=== PATIENT | male | born 1940 | race Caucasian/White ===

== ENCOUNTER 2017-01-21 14:54 | Emergency (ER) | payer MEDICARE ==
[~2017-01-21] VITALS: Ht 177.8 cm; Wt 90.7 kg
[~2017-01-21 14:54] MED LIST: ACET325T38 PO; ASP81TEC PO; CARV6.252 PO; CEFU500T PO; CEPH500C PO; CLOP75TA PO; CLOP75TA28 PO; CLPD75T PO; COREG; CRV6.25T PO; DEPAKOTE; DIVA250T12 PO; DIVA500T15 PO; DONE5TAB30 PO; FERR-57 PO; FERROUS SULFATE; FOLI1TAB7 PO; HYDR-3002 PO; HYDR-3583 PO; HYDRALAZINE; LISI5TAB PO; LISINOPRIL; SIMV20TA3 PO; SIMVASTATIN; TRAM-21 PO; TRAM-42 PO; TRAM50TA2 PO; TRAZADONE; TRM50T PO; TRZ50T PO
--- OUTSIDE RECORDS SUMMARY | 2017-01-21 14:59 | XMS REPORT | Continuity of Care Document ---
Author Author [facility] Organization [facility] Address Unknown Phone Unavailable Care Team Providers Care Foreclosure Specialist Name Role Phone ELIZABETH GLEASON MD PCP Insurance Providers Payer Name Policy Number Subscriber Name Relationship Wps [employer] [id number] Alisha East 18 Self / Same As Patient Blue [employer] [facility] Supp [id number] Alisha East Self / Same As Patient Advance Directives Directive Response Recorded Date/Time Advance Directives Yes 10/24/16 6:28am Health Care Power of Pairer Yes 10/24/16 6:28am Organ Donor No 10/24/16 6:28am Resuscitation Status Full Code 10/24/16 6:28am Problems No problem information available. Medications Current Home Medications Medication Dose Units Route Directions Days/Qty Instructions Start Date Ferrous Sulfate 325 Mg 325 Mg Oral Daily 01/06/13 Lisinopril 5 Mg 5 Mg Oral Daily 01/06/13 Simvastatin 20 Mg 20 Mg Oral Bedtime 01/06/13 Trazodone Hcl 50 Mg 50 Mg Oral Bedtime 01/06/13 Carvedilol 6.25 Mg 6.25 Mg Oral Every 12 Hours 12/23/14 Divalproex Sodium (Depakote Er) 250 Mg 500 Mg Oral Daily TAKE 2 (250MG ) TABS 12/23/14 Divalproex Sodium (Depakote Er) 250 Mg 250 Mg Oral Noon, 6PM, Hs Hydralazine Hcl 10 Mg 10 Mg Oral Daily 12/23/14 Clopidogrel Bisulfate 75 Mg 75 Mg Oral Daily 10/19/16 Donepezil Hcl 5 Mg 5 Mg Oral Daily 10/19/16 Tramadol Hcl 50 Mg 50 Mg Oral Every 12 Hours as needed for Pain 20 Past Home Medications Medication Directions Ordered Status [Depakote] , 06/01/11 Discontinued [Coreg] , 06/01/11 Discontinued [Hydralazine] , 06/01/11 Discontinued Clopidogrel Bisulfate 75 Mg Tablet, 75 Mg Oral Daily 06/01/11 Discontinued [Ferrous Sulfate] , 06/01/11 Discontinued [Lisinopril] , 06/01/11 Discontinued [Lisinopril] , 06/01/11 Discontinued [Lisinopril] , 06/01/11 Discontinued Folic Acid/Multivits-Min/Lut 1 Each Tab.chew, 1 Tab Oral Evening 06/01/11 Discontinued [Simvastatin] , 06/01/11 Discontinued [Trazadone] , 06/01/11 Discontinued Aspirin 81 Mg Tabec, 81 Mg Oral Bedtime 06/01/11 Discontinued Cephalexin Monohydrate (Keflex) 500 Mg Capsule, 1 Each Oral Twice A Day 06/05 Discontinued Acetaminophen/Hydrocodone Bitart 1 Tab Tab, 1 - 2 Ea Oral Q4hr Prn 06/05/11 Discontinued Divalproex Sodium (Depakote Er) 500 Mg Tab.sr.24h, 500 Mg Oral Daily Discontinued Hydralazine Hcl 10 Mg Tablet, 10 Mg Oral Daily 01/06/13 Discontinued Divalproex Sodium (Depakote Er) 250 Mg Tab.sr.24h, 250 Mg Oral Take At Noon, 6PM&Hs 01/06/13 Discontinued Carvedilol (Coreg) 6.25 Mg Tablet, 6.25 Mg Oral Twice A Day 01/06/13 Discontinued Tramadol Hcl 50 Mg Tab, 50 Mg Oral Every 12 Hours as needed 07/23/13 Discontinued Clopidogrel Bisulfate 75 Mg Tablet, 75 Mg Oral Daily 12/23/14 Discontinued Tramadol Hcl 50 Mg Tablet, 50 Mg Oral Every 12 Hours 12/23/14 Discontinued Cefuroxime Axetil 500 Mg Tablet, 500 Mg Oral Twice A Day 10/18/15 Discontinued Acetaminophen 325 Mg Tablet, 650 Mg Oral Every 6 Hours as needed for Pain Discontinued Tramadol Hcl 50 Mg Tablet, 50 Mg Oral Every 12 Hours as needed for Pain 01/11 Discontinued Social History Social History Problem Response Recorded Date/Time Alcohol Use Denies Use 01/11/2016 12:07pm Recreational Drug Use No 01/11/2016 12:07pm Recent Foreign Travel No 10/24/2016 6:29am Recent Infectious Disease Exposure No 10/24/2016 6:29am Sexually Transmitted Disease No 10/24/2016 6:28am HIV/AIDS No 10/24/2016 6:28am Smoking Status Never a Smoker 10/24/2016 6:28am Do you dip or chew tobacco? No 01/11/2016 11:54am Recent Hopitalizations No 10/24/2016 6:28am Sexually Transmitted Disease No 10/24/2016 6:28am Hx Sexually Transmitted Disorders No 12/23/2014 10:20am Query Response Start Date Stop Date Smoking Status Never a Smoker 10/18/1993 Hospital Discharge Instructions Patient Instructions Physician Instructions New, Converted or Re-Newed RX: RX on Chart Plan of Care/Instructions/FU: right upper extremity to be elevated as much as possible. Follow-up with my nurse in 2 weeks for suture removal Activity as Tolerated: Yes Discharge Diet: No Restrictions Care Plan Patient Instructions:: right upper extremity to be elevated as much as possible. Follow-up withmy nurse in 2 weeks for suture removal Plan of Care Discharge Date 10/24/16 10:35am Instructions/Education Provided ANESTHESIA INSTRUCTIONS POSTOP Prescriptions See Medication Section Functional Status No functional status results. Allergies, Adverse Reactions, Alerts Allergen Type Severity Reaction Status Last Updated NKANo Known Allergies Allergy Mild Active 01/18/06 Immunizations No immunization records. Vital Signs Acute Vital Signs Vital Response Date/Time Temperature (Fahrenheit) 98.0 degrees F (97.6 - 99.5) 10/24/2016 10:35am Temperature (Calculated Celsius) 36.77910 degrees C (36.4 - 37.5) 10/24/2016 10:25am Temperature Source Temporal 10/24/2016 10:35am Pulse Rate (adult) 58 bpm (60 - 90) 10/24/2016 10:35am Respiratory Rate 16 bpm (12 - 24) 10/24/2016 10:35am O2 Sat by Pulse Oximetry 96 % (88 - 100) 10/24/2016 10:35am Blood Pressure 120/82 mm Hg 10/24/2016 10:35am Blood Pressure Mean 94 mm Hg 10/24/2016 6:33am Pain Numeric Pain Scale 0-No Pain 10/24/2016 10:35am Height (Feet) 5 feet 10/24/2016 6:29am Height (Inches) 10.00 inches 10/24/2016 6:29am Height (Calculated Centimeters) 177.777292 cm 10/24/2016 6:29am Weight (Pounds) 200 pounds 10/24/2016 6:29am Weight (Ounces) 0.0 oz 10/24/2016 6:29am Weight (Calculated Grams) 55158.48 gm 10/24/2016 6:29am Weight (Calculated Kilograms) 90.803759 kilograms 10/24/2016 6:29am Calculated BMI 28.7 10/24/2016 6:29am Results Pending Microbiology Results Procedure Source Collection Date/Time Procedures Procedure Status Date Provider(s) Excision of lesion Completed 10/24/16 ISI MAHMOOD MD Encounters Encounter Location Arrival/Admit Date Discharge/Depart Date Attending Provider Departed [facility] 10/24/16 6:00am 10:35am ISI MAHMOOD MD Departed Clinic [facility] 10/19/16 9:52am 10/19/16 10: 20am ISI MAHMOOD MD
[2017-01-21] MEDS ORDERED: LORazepam INJ 2 MG/ML (ATIVAN) VIAL ONE ×2 (15:08→15:23)
--- NOTE | 2017-01-21 15:11 | Diagnostic Imaging Report ---
PROCEDURE: CT head without contrast. TECHNIQUE: Multiple contiguous axial images were obtained through the brain without the use of intravenous contrast. INDICATION: Syncope and weakness. Comparison made with prior examination 11/17/2008. FINDINGS: There is prominence of ventricles and sulci. There is focal encephalomalacia in the frontal lobes bilaterally, right parietal lobe and left temporal lobe compatible with prior CVAs. There is no intracranial mass, hemorrhage or extra-axial fluid collection. Calvarium intact. Sinuses and mastoid air cells are clear. IMPRESSION: Atrophy as well as several areas of encephalomalacia compatible with prior CVAs. There is, however, no evidence of an acute CVA or hemorrhage. Dictated by: Dictated on workstation # [id number]
[2017-01-21 15:17] LABS: BASOPHILS % (AUTO) 0 % (0-10); EOSINOPHILS # (AUTO) 0.2 10^3/uL (0.0-0.3); EOSINOPHILS % (AUTO) 3 % (0-10); LYMPHOCYTES # (AUTO) 2.2 X 10^3 (1.0-4.0); LYMPHOCYTES % (AUTO) 27 % (12-44); MEAN CORPUSCULAR HEMOGLOBIN 30 PG (25-34); MEAN CORPUSCULAR HGB CONC 35 G/DL (32-36); MEAN CORPUSCULAR VOLUME 85 FL (80-99); MEAN PLATELET VOLUME 10.3 FL (7.4-10.4); MONOCYTES # (AUTO) 0.4 X 10^3 (0.0-1.0); MONOCYTES % (AUTO) 5 % (0-12); NEUTROPHILS # (AUTO) 5.3 X 10^3 (1.8-7.8); NEUTROPHILS % (AUTO) 65 % (42-75); PLATELET COUNT 180 10^3/uL (130-400); RED CELL DISTRIBUTION WIDTH 13.3 % (10.0-14.5); WHITE BLOOD COUNT 8.1 10^3/uL (4.3-11.0)
[2017-01-21 15:28] LABS: INR 1.1 (0.8-1.4); PROTHROMBIN TIME PATIENT 13.5 SEC (12.2-14.7)
[2017-01-21] MEDS ORDERED: ROCURONIUM 50 MG/5 ML (ZEMURON) VIAL IV ONE (15:30)
[2017-01-21] MEDS ORDERED: proPOfol 200 MG/20 ML (DIPRIVAN) VIAL IV ONE (15:34)
[2017-01-21 15:35] LABS: ALANINE AMINOTRANSFERASE 18 U/L (0-55); ALBUMIN 4.1 G/DL (3.2-4.5); ANION GAP 10 MMOL/L (5-14); ASPARTATE AMINO TRANSFERASE 31 U/L (5-34); BILIRUBIN,TOTAL 0.4 MG/DL (0.1-1.0); BLOOD UREA NITROGEN 27 MG/DL (7-18); BUN/CREATININE RATIO 26; CALCIUM 8.7 MG/DL (8.5-10.1); CARBON DIOXIDE 23 MMOL/L (21-32); CHLORIDE 104 MMOL/L (98-107); CREATININE SERUM 1.02 MG/DL (0.60-1.30); GFR ESTIMATED > 60; GLUCOSE 137 MG/DL (70-105); MAGNESIUM 2.4 MG/DL (1.8-2.4); POTASSIUM 5.6 MMOL/L (3.6-5.0); SODIUM 137 MMOL/L (135-145); TOTAL PROTEIN 7.1 G/DL (6.4-8.2)
[2017-01-21 15:41] LABS: MYOGLOBIN SERUM 57.4 NG/ML (10.0-92.0)
--- NOTE | 2017-01-21 16:02 | Diagnostic Imaging Report ---
INDICATION: Respiratory distress. Portable chest at 03:47 p.m. FINDINGS: There is an ET tube projecting over the trachea. NG tube projects over the stomach. There is a dual-chamber pacemaker. Heart size and pulmonary vascularity are normal. Lungs are clear. There are no effusions or pneumothoraces. IMPRESSION: No acute abnormalities in the chest. Dictated by: Dictated on workstation # [id number]
[2017-01-21] MEDS ORDERED: PROPOFOL DRIP (ICU) 100 ML IV ONE (16:07)
[2017-01-21 16:10] LABS: BILIRUBIN,URINE NEGATIVE (NEGATIVE); KETONES,URINE 1+ (NEGATIVE); LEUKOCYTE ESTERASE ,URINE NEGATIVE (NEGATIVE); NITRITE,URINE NEGATIVE (NEGATIVE); PH,URINE 5 (5-9); PROTEIN,URINE 2+ (NEGATIVE); UROBILINOGEN,URINE NORMAL (NORMAL)
--- NOTE | 2017-01-21 16:13 | Progress Note-Standard ---
Standard Progress Note Progress Notes/Assess & Plan Progress/Assessment & Plan Called to ED for emergent intubation. Upon arrival to ED patient is not responsive breathing with NC on O2 sat 96%. . in room requesting an intubation. Ask Dr how she feels about sux, Requested to hold off on sux. Patient given 200mg of propofol for intubation. Patient has already been given lorazepam for seizure. Patient intubated with jiménez 3 grade 3 visualization. 8.0 OETT placed to 24 cm at the lip. +BS bilaterally, change in CO2 color, + ET CO2 at 42. Post-intubation patient coughed and moderate amount of vomitus type fluid from oral cavity. Suctioned till clear. This was post OETT cuff inflation. Rocuronium 50mg given post intubation. OGT placed without difficulty. Care to ED RN and staff. LUCIO AHUMADA CRNA Jan 21, 2017 16:13
[2017-01-21 16:20] VITALS: BP 116/66
[2017-01-21 16:22] LABS: SQUAMOUS EPITHELIAL CELL,UR 0-2 /HPF
--- NOTE | 2017-01-23 18:52 | ED Neurological Problem ---
General Chief Complaint: Neuro-Stroke Like Symptoms Stated Complaint: RT SIDE WEAKNESS/POSS STROKE Nursing Triage Note: PT TAKEN STRAIGHT TO CT BY [facility] WITH CC OF STROKE S/S. PT WAS SHOPPING AND HAD SUDDEN ONSET OF RT FACIAL DROOP AND WEAKNESS. IN CT RM PT UNABLE TO ANSWER QUESTIONS AND DOES NOT FOLLOW COMMANDS. Nursing Sepsis Screen: No Definite Risk Source: EMS Exam Limitations: other (PT UNABLE TO GIVE ANY INFORMATION ) History of Present Illness Time seen by provider: 14:58 Initial Comments PT ARRIVES VIA EMS FROM [facility] PT HAD A WITNESSED EVENT OF SUDDEN ONSET OF A BLANK STARE, AND WOULD NOT RESPOND , THEN COMPLETE RIGHT SIDED PARALYSIS AND INABILITY TO STAND--ASSISTED TO GROUND. NO FAMILY WAS WITH PT AT THE TIME NO OTHER INFORMATION IS OBTAINABLE ON PT'S ARRIVAL FAMILY ARRIVE LATER AND REPORT THAT PT HAD MENINGITIS A FEW YEARS AGO, BUT DID NOT HAVE THESE SAME SYMPTOMS THEY REPORT THAT PT WAS COMPLETELY FINE WHEN HE LEFT THE HOUSE NO RECENT ILLNESS OR FEVER, ETC. PCP: DR. GLEASON Allergies and Home Medications Allergies Coded Allergies: Keely Known Allergies (Verified Allergy, Mild, 01/18/06) Home Medications Carvedilol 6.25 Mg Tab 6.25 MG PO Q12H (Reported) Clopidogrel Bisulfate 75 Mg Tablet 75 MG PO DAILY (Reported) Divalproex Sodium 250 Mg Tab.sr.24h 500 MG PO DAILY (Reported) TAKE 2 (250MG) TABS Divalproex Sodium 250 Mg Tab.sr.24h 250 MG PO NOON, 6PM, HS (Reported) Donepezil HCl 5 Mg Tablet 5 MG PO DAILY (Reported) Ferrous Sulfate 325 Mg Tablet 325 MG PO DAILY (Reported) Hydralazine Hcl 10 Mg Tablet 10 MG PO DAILY (Reported) Lisinopril 5 Mg Tablet 5 MG PO DAILY (Reported) Simvastatin 20 Mg Tablet 20 MG PO HS (Reported) Tramadol HCl 50 Mg Tablet #20 50 MG PO Q12H PRN PRN PAIN Prescribed by: ISI MAHMOOD on 10/24/16 0909 Trazodone Hcl 50 Mg Tab 50 MG PO HS (Reported) Constitutional: other (UNABLE TO OBTAIN ANY INFORMATION FROM PT) Psychiatric/Neurological: See HPI Past Pthokpd-Ydnkan-Rcgjjs Hx Patient Social History Alcohol Use: Denies Use Recreational Drug Use: No Smoking Status: Unknown if Ever Smoked Former Smoker/When Quit: Oct 18, 1993 Recent Foreign Travel: No Contact w/Someone Who Travel: No Recent Infectious Disease Expo: No Recent Hopitalizations: No Immunizations Up To Date Date of Pneumonia Vaccine: Oct 18, 2015 Date of Influenza Vaccine: Oct 18, 2015 Seasonal Allergies Seasonal Allergies: No Surgeries HX Surgeries: Yes (SKIN LESION REMOVAL, DEFIB X2) Surgeries: Defibrillator (UNABLE TO OBTAIN ANY INFORMATION FROM PT), Pacemaker Respiratory Hx Respiratory Disorders: No Cardiovascular Hx Cardiac Disorders: Yes (XunLight defib) Cardiac Disorders: Cardiomyopathy, Coronary Artery Disease Neurological Hx Neurological Disorders: Yes (2006 FELL INTO BASEMENT AND HAD MAJOR HEAD INJURY--INTRACRANIAL BLEED; MENINGITIS IN 2005) Neurological Disorders: Meningitis, Seizure Disorder, Traumatic Brain Injury Reproductive System Hx Reproductive Disorders: No Sexually Transmitted Disease: No HIV/AIDS: No Genitourinary Hx Genitourinary Disorders: No Gastrointestinal Hx Gastrointestinal Disorders: No Musculoskeletal Hx Musculoskeletal Disorders: No Endocrine Hx Endocrine Disorders: No HEENT HX ENT Disorders: No Cancer Hx Cancer: No Psychosocial Hx Psychiatric Problems: No Integumentary HX Skin/Integumentary Disorder: Yes (SKIN LESIONS) Blood Transfusions Hx Blood Disorders: No Physical Exam Vital Signs Vital Sign - Last 12Hours 01/21/17 01/21/17 14:55 15:11 Temp 97.8 Pulse 74 Resp 20 B/P 152/93 Pulse Ox 96 O2 Delivery Room Air O2 Flow Rate 3 Capillary Refill : Less Than 3 Seconds General Appearance: WD/WN other (PT AWAKE BUT IS NOT TALKING OR FOLLOWING ANY COMMANDS) HEENT: PERRL/EOMI normal ENT inspection Neck: non-tender full range of motion supple normal inspection Respiratory: normal breath sounds no respiratory distress no accessory muscle use Cardiovascular: normal peripheral pulses regular rate, rhythm no murmur Peripheral Pulses: 2+ Dorsalis Pedis (R), 2+ Left Dors-Pedis (L) Gastrointestinal: normal bowel sounds non tender soft Extremities: normal inspection no pedal edema no calf tenderness normal capillary refill Neurologic/Psychiatric: alert other (MENTATION ABOVE. RIGHT SIDE FLACCID) Skin: normal color warm/dry Stroke NIH Stroke Scale Assessment Level of Consciousness: 3=NoResponse/Reflex motor Level of Consciousness-Questio: 2=Answer neither question LOC Commands: 2=Performs neither task Gaze: 2=Forced Deviation Visual Parsons: 3=Bilateral Hemianopia Facial Movement (Facial Paresi: 3=Complete paralysis Motor Function-Arms Right: 4=No movement Motor Function-Arms Left: 4=No movement Motor Function-Legs Right: 4=No movement Motor Function-Legs Left: 4=No movement Limb Ataxia: 2=Present in two limbs Sensory: 2=Severe to total loss Best Language: 3=Mute Dysarthria: 3=Intubated/Physical meredith Extinction & Inattention: 2=ProfoundHemiInattention IV - TPa Received IV - TPa Procedure Performed?: No (NOT ADVISED TO GIVE TPA BY NEUROLOGIST. ) Date of ETT Placement: Jan 21, 2017 Time of ETT Placement: 1538 Tube Size: 8.0 Progress/Results/Core Measures Results/Orders Lab Results Laboratory Tests Test 01/21/17 15:08 01/21/17 15:46 Range/Units Activated Partial Thromboplast Time 28 24-35 SEC Alanine Aminotransferase (ALT/SGPT) 18 0-55 U/L Albumin 4.1 3.2-4.5 G/DL Alkaline Phosphatase 48 40-136 U/L Anion Gap 10 5-14 MMOL/L Aspartate Amino Transf (AST/SGOT) 31 5-34 U/L BUN/Creatinine Ratio 26 Basophils # (Auto) 0.0 0.0-0.1 10^3/uL Basophils (%) (Auto) 0 0-10 % Blood Urea Nitrogen 27 H 7-18 MG/DL Calcium Level 8.7 8.5-10.1 MG/DL Carbon Dioxide Level 23 21-32 MMOL/L Chloride Level 104 98-107 MMOL/L Creatinine 1.02 0.60-1.30 MG/DL Eosinophils # (Auto) 0.2 0.0-0.3 10^3/uL Eosinophils (%) (Auto) 3 0-10 % Estimat Glomerular Filtration Rate > 60 Glucometer 164 H 70-110 MG/DL Glucose Level 137 H 70-105 MG/DL Hematocrit 43 40-54 % Hemoglobin 14.8 13.3-17.7 G/DL INR Comment 1.1 0.8-1.4 Lymphocytes # (Auto) 2.2 1.0-4.0 X 10^3 Lymphocytes (%) (Auto) 27 12-44 % Magnesium Level 2.4 1.8-2.4 MG/DL Mean Corpuscular Hemoglobin 30 25-34 PG Mean Corpuscular Hemoglobin Concent 35 32-36 G/DL Mean Corpuscular Volume 85 80-99 FL Mean Platelet Volume 10.3 7.4-10.4 FL Monocytes # (Auto) 0.4 0.0-1.0 X 10^3 Monocytes (%) (Auto) 5 0-12 % Myoglobin 57.4 10.0-92.0 NG/ML Neutrophils # (Auto) 5.3 1.8-7.8 X 10^3 Neutrophils (%) (Auto) 65 42-75 % Platelet Count 180 130-400 10^3/uL Potassium Level 5.6 H 3.6-5.0 MMOL/L Prothrombin Time 13.5 12.2-14.7 SEC Red Blood Count 5.00 4.35-5.85 10^6/uL Red Cell Distribution Width 13.3 10.0-14.5 % Sodium Level 137 135-145 MMOL/L Total Bilirubin 0.4 0.1-1.0 MG/DL Total Protein 7.1 6.4-8.2 G/DL Troponin I < 0.30 <0.30 NG/ML White Blood Count 8.1 4.3-11.0 10^3/uL Urine Amorphous Sediment RARE SHIELA URATES H /LPF Urine Bacteria TRACE /HPF Urine Bilirubin NEGATIVE NEGATIVE Urine Casts PRESENT /LPF Urine Clarity SLIGHTLY CLOUDY Urine Color YELLOW Urine Crystals NONE /LPF Urine Culture Indicated NO Urine Glucose (UA) NEGATIVE NEGATIVE Urine Hyaline Casts 2-5 H /LPF Urine Ketones 1+ H NEGATIVE Urine Leukocyte Esterase NEGATIVE NEGATIVE Urine Mucus NEGATIVE /LPF Urine Nitrite NEGATIVE NEGATIVE Urine Protein 2+ H NEGATIVE Urine RBC NONE /HPF Urine RBC (Auto) 1+ H NEGATIVE Urine Specific Isabel 1.025 H 1.016-1.022 Urine Squamous Epithelial Cells 0-2 /HPF Urine Urobilinogen NORMAL NORMAL MG/DL Urine WBC NONE /HPF Urine pH 5 5-9 Micro Results Microbiology 01/21/17 Blood Culture - Preliminary, Resulted No growth 01/21/17 Influenza Types A,B Antigen (JENNIFER) - Final, Complete My Orders Orders-OSCAR SUAREZ DO O2 (01/21/17 14:58) Ekg Tracing (01/21/17 14:58) Cbc With Automated Diff (01/21/17 14:58) Comprehensive Metabolic Panel (01/21/17 14:58) Protime With Inr (01/21/17 14:58) Partial Thromboplastin Time (01/21/17 14:58) Magnesium (01/21/17 14:58) Chest 1 View, Ap/Pa Only (01/21/17 14:58) Cardiac Profile 1 (01/21/17 14:58) Myoglobin Serum (01/21/17 14:58) Ct Head Wo (01/21/17 14:58) Monitor-Rhythm Ecg Trace Only (01/21/17 14:58) Saline Lock/Iv-Start (01/21/17 14:58) Lorazepam Injection (Ativan Injection) (01/21/17 15:08) Ua Culture If Indicated (01/21/17 15:14) Blood Culture (01/21/17 15:14) Influenza A And B Antigens (01/21/17 15:14) Lorazepam Injection (Ativan Injection) (01/21/17 15:23) Propofol Injection (Diprivan Injection) (01/21/17 15:34) Anesthesia Consult (01/21/17 15:38) Propofol Drip (Icu) (Diprivan Drip (Icu) (01/21/17 16:07) Rocuronium Injection (Zemuron Injection) (01/21/17 15:30) Vital Signs/I&O Vital Sign - Last 12Hours 01/21/17 01/21/17 01/21/17 01/21/17 14:55 15:11 16:20 16:20 Temp 97.8 Pulse 74 79 79 Resp 20 11 11 B/P 152/93 116/66 Pulse Ox 96 99 99 O2 Delivery Room Air Nasal Cannula Mechanical Ventilator O2 Flow Rate 3 Blood Pressure Mean: 83 Progress Note : Progress Note 1508--PT HAS JUST RETURNED FROM CT AND PT SUDDENLY WITH COMPLETE LEFT SIDED NEGLECT, RIGHT SIDE FLACCID WITH BOTH EYES DEVIATED TO THE RIGHT. NO NYSTAGMUS. PT BEGAN TO HAVE MILD TONIC-CLONIC ACTIVITY OF ENTIRE RIGHT SIDE, LASTED APPROXIMATELY 2 MINUTES, ATIVAN GIVEN, AND DILANTIN BOLUS GIVEN 1518--PT RESTED BRIEFLY, NOW WILL LOOK AROUND AND MAKE EYE CONTACT, AND LEFT SIDED NEGLECT AND DEVIATION OF EYES TO RIGHT HAS STOPPED. STILL WITH RIGHT SIDE FLACCID. PT DOES TURN HEAD AND MAKE EYE CONTACT WITH FAMILY WHOM ARE STANDING ON THE LEFT SIDE OF THE BED. STILL NOT TALKING OR FOLLOWING ANY COMMANDS. 1523--PT HAD ALL OF THE EXACT SAME SYMPTOMS ABOVE, THEN HAD SIGNIFICANT SEIZURE ACTIVITY OF ENTIRE RIGHT SIDE. AGAIN LASTING APPROXIMATELY 1-2 MINUTES, THEN HAD POST ICTAL SYMPTOMS WITH SNORING RESPIRATIONS AND MILD DROP IN O2 SAT-- AIRWAY MAINTAINED WITH CHIN LIFT/JAW THRUST AND SNOROUS RESPIRATIONS RESOLVED AND O2 SATS IMPROVED--PT HAD BEEN PLACED ON O2. ANESTHESIA CONTACTED, (ALREADY HERE IN ER) AND PT WAS SUCCESSFULLY INTUBATED. ECG Initial ECG Impression Time: 15:11 Initial ECG Rate: 64 Initial ECG Rhythm: Normal Sinus Diagnostic Imaging Comments CT HEAD--NO ACUTE PROCESS, NO INTRACRANIAL BLEED. MULTIPLE OLD INFARCTS AND ATROPHY--PER RADIOLOGIST IN PERSON AT 1503 CXR--ET TUBE AND NG TUBE APPEAR TO BE IN PROPER PLACEMENT. NO ACUTE PROCESS -- PER RADIOLOGIST REPORT Reviewed: Reviewed by Me, Discussed w/Radiologist Critical Care Note Critical Care Total Time (minutes) 1 HOUR Departure Communication Progress Notes 1510--ATTEMPTING TO CONTACT DR. MONTAÑO, HOSPITALIST. NO ANSWER ON CELL 1511--NO ANSWER AT EXT [id number]--NO ANSWER AT EXT [phone]--SPOKE WITH DR. MONTAÑO, HOSPITALIST, ADVISES TRANSFER TO 1523--CONTACTED TRANSFER LINE, PLACED ON HOLD 1525--SPOKE WITH STROKE CENTER, SPOKE WITH DR. ALDRIDGE, NEUROLOGIST FERTILIZER MIXER. ACCEPTS PT AND ADVISES TO CONTACT THE TRANSFER CENTER. SHE DOES NOT ADVISE TPA AT THIS TIME, IS NOT CONVINCED THAT PT IS TRULY HAVING A STROKE. 1533--CALLED TRANSFER LINE 1523--SPOKE WITH SORAYA YARD COORDINATOR. SHE ADVISES THAT IS OK FOR US TO LAUNCH [facility] FOR TRANSPORT. WILL CALL BACK WITH BED ASSIGNMENT, AND OK TO TRANSPORT 1535--SPOKE WITH DR. ADAMS, TRANSFER PHYSICIAN. SHE ADVISES TO START PROPOFOL DRIP FOR TRANSPORT AND DOES NOT ADVISE ANY OTHER MEDICATIONS ENROUTE Impression Impression: Primary Impression: ACUTE RIGHT SIDED PARALYSIS WITH RIGHT SIDED SEIZURE ACTIVITY Disposition: XFER SHT-TRM HOSP Condition: Critical Departure-Patient Inst. Referrals: ELIZABETH GLEASON MD (PCP) Primary Care Physician OSCAR SUAREZ DO Jan 23, 2017 18:52
== END 2017-01-21 16:20 | disposition short-term general hospital (02) ==
LOC: EDUNIT# 14:54 → ER 14:56
DX: G81.91 Hemiplegia, unspecified affecting right dominant side (principal); R56.9 Unspecified convulsions; I25.10 Atherosclerotic heart disease of native coronary artery without angina pectoris; Z79.899 Other long term (current) drug therapy; Z87.820 Personal history of traumatic brain injury
CPT/HCPCS: 31500; 36415; 51702; 70450; 71010; 80053; 81000; 82962; 83735; 83874; 84484; 85025; 85610; 85730; 87040; 87804; 93005; 93041; 96374; 96375

== ENCOUNTER → 2017-05-03 | Outpatient (CLI) | payer MEDICARE | LOC: RT 09:49 | PROVIDERS: ATTEND Psychiatry & Neurology Neurology | DX: G40.909 Epilepsy, unspecified, not intractable, without status epilepticus (principal) | CPT/HCPCS: 95816 ==

== ENCOUNTER 2017-09-18 12:32 | Outpatient (CLI) | payer MEDICARE ==
[~2017-09-18] VITALS: Ht 177.8 cm; Wt 89.6 kg
[2017-09-18 12:44] VITALS: BP 131/74
[2017-09-18] MEDS ORDERED: FERR-74 PO (13:07)
[2017-09-18] MEDS ORDERED: TRAZ-28 PO (13:07)
[2017-09-18] MEDS ORDERED: CARV6.252 PO (13:07)
[2017-09-18] MEDS ORDERED: DIVA250T4 PO (13:07)
[2017-09-18] MEDS ORDERED: SIMV20TA3 PO (13:07)
[2017-09-18] MEDS ORDERED: LISI-556 PO (13:07)
[2017-09-18] MEDS ORDERED: HYDR-3922 PO (13:07)
[2017-09-18] MEDS ORDERED: DIVA500T7 PO (13:07)
== END 2017-09-18 14:10 | disposition home or self-care (01) ==
LOC: PREOP 12:32
PROVIDERS: ATTEND Surgery
DX: Z01.818 Encounter for other preprocedural examination (principal); L98.9 Disorder of the skin and subcutaneous tissue, unspecified
CPT/HCPCS: 87081

== ENCOUNTER 2017-09-25 06:16 | Day surgery (SDC) | payer MEDICARE ==
[~2017-09-25] VITALS: Ht 177.8 cm; Wt 89.6 kg
[~2017-09-25 06:16] MED LIST changes: +DIVA250T4 PO; +DIVA500T7 PO; +FERR-74 PO; +HYDR-3922 PO; +LISI-556 PO; +TRAZ-28 PO
--- OUTSIDE RECORDS SUMMARY | 2017-09-25 06:19 | XMS REPORT | Clinical Summary ---
Author Author [facility] Organization [facility] Address Unknown Phone Unavailable Care Team Providers Care Pari Mutual Ticket Checker Name Role Phone PCP Unavailable Source Comments Some departments are not documenting in the electronic medical record. If you do not see the information that you expected, contact Release of Information in the Health Information Management department at [phone] for further assistance in locating additional records.[facility] Allergies No Known Allergies Current Medications Prescription Sig. Disp. Refills Start End Date Status Date ferrous sulfate (FEOSOL, Take 325 mg by mouth Active FEROSUL) 325 mg (65 mg daily. Take on an empty iron) tablet stomach at least 1 hour before or 2 hours after food. lisinopril (PRINIVIL; Take 5 mg by mouth daily. Active ZESTRIL) 5 mg tablet simvastatin (ZOCOR) 20 mg Take 20 mg by mouth at Active tablet bedtime daily. traZODone (DESYREL) 50 mg Take 50 mg by mouth at Active tablet bedtime as needed for Sleep. carvedilol (COREG) 6.25 Take 6.25 mg by mouth Active mg tablet twice daily with meals. Take with food. hydrALAZINE (APRESOLINE) Take 10 mg by mouth Active 10 mg tablet daily. clopiDOGrel (PLAVIX) 75 Take 75 mg by mouth Active mg tablet daily. divalproex (DEPAKOTE EC) Take by mouth. Take with Active [address] tablet food. donepezil (ARICEPT) 10 mg Take by mouth. Active tablet FOLIC Take 1 Tab by mouth Active ACID/MULTIVIT-MIN/LUTEIN daily. (CENTRUM SILVER PO) aspirin 81 mg chewable Chew 81 mg by mouth Active tablet daily. Take with food. fish oil- omega 3-DHA/EPA Take 2 Caps by mouth Active 300/1,000 mg capsule daily. fluorouracil (EFUDEX) 5 % Apply topically to Active topical cream affected area twice daily. x3 weeks donepezil (ARICEPT) 5 mg Take by mouth. Active tablet Active Problems Problem Noted Date Encephalopathy acute 01/22/2017 H/O traumatic brain injury 01/22/2017 Acute respiratory failure with hypercapnia (HCC) 01/22/2017 Chronic systolic heart failure (HCC) 01/22/2017 Seizure ([facility]) 01/21/2017 Social History Tobacco Use Types Packs/Day Years Used Date Never Smoker Sex Assigned at Date Recorded Not on file Last Filed Vital Signs Vital Sign Reading Time Taken Blood Pressure 129/82 01/24/2017 10:27 AM LEASE ADMINISTRATOR Pulse 62 01/24/2017 12:24 PM LEASE ADMINISTRATOR Temperature 36.5 C (97.7 F) 01/24/2017 10:27 AM LEASE ADMINISTRATOR Respiratory Rate - - Oxygen Saturation 97% 01/24/2017 10:27 AM LEASE ADMINISTRATOR Inhaled Oxygen - - Concentration Weight 91.5 kg (201 lb 11.5 oz) 01/21/2017 8:00 PM LEASE ADMINISTRATOR Height 177.8 cm (5' 10") 01/21/2017 8:00 PM LEASE ADMINISTRATOR Body Mass Index 28.94 01/21/2017 8:00 PM LEASE ADMINISTRATOR Plan of Treatment Health Maintenance Due Date Last Done Comments PHYSICAL (COMPREHENSIVE) 1947 EXAM PERTUSSIS VACCINE 1951 TETANUS VACCINE 1957 SHINGLES VACCINE 2000 PREVNAR/PNEUMOVAX (#1) 2005 INFLUENZA VACCINE 07/02/2017 Results Not on filefrom Last 3 Months
[2017-09-25] MEDS ORDERED: ceFAZolin 2 GM/50 ML NS 50 ML ONE (06:23)
[2017-09-25] MEDS ORDERED: LIDOCAINE PF 2% 5 ML (XYLOCAINE) VIAL ONE (06:34)
[2017-09-25] MEDS ORDERED: ONDANSETRON 4 MG/2 ML (SDV) Z0FRAN ONE (06:34)
[2017-09-25] MEDS ORDERED: proPOfol 200 MG/20 ML (DIPRIVAN) VIAL IV ONE (06:34)
[2017-09-25] MEDS ORDERED: fentaNYL INJECTION 100 MCG/2 ML AMP ONE (06:35)
[2017-09-25] MEDS ORDERED: SEVOFLURANE (ULTANE) 15 ML INHAL SOLN ONE ×8 (06:38→09:47)
[2017-09-25 06:49] VITALS: BP 125/71
[2017-09-25] MEDS ORDERED: BUP/EPI 0.5% 1:200,000 (MARCAINE) 10ML VIAL IJ ONE (07:01)
[2017-09-25] MEDS ORDERED: EPINEPHrine INJECTION 1 MG/ML AMP ONE (07:01)
[2017-09-25] MEDS ORDERED: LACTATED RINGERS 1,000 ML IV SCH (07:15)
[2017-09-25] MEDS ORDERED: ceFAZolin 2 GM/NS 50 ML IV ONE (07:15)
[2017-09-25] MEDS ORDERED: MIDAZOLAM 2 MG/2 ML (VERSED) VIAL ONE (07:15)
--- NOTE | 2017-09-25 08:03 | Progress Note-Pre Operative ---
Pre-Operative Progress Note H&P Reviewed The H&P was reviewed, patient examined and no changes noted. Date Seen by Provider: Sep 19, 2017 Time Seen by Provider: 14:25 Date H&P Reviewed: Sep 25, 2017 Time H&P Reviewed: 08:02 Pre-Operative Diagnosis: Skin lesions*2 scalp ISI MAHMOOD MD Sep 25, 2017 8:02 am
--- NOTE | 2017-09-25 10:10 | Operative Report ---
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 Excision with frozen section and split-thickness skin grafting( 16 cm) 2. Excision with frozen section and split-thickness skin grafting( 9 cm) Description of Procedure Anesthesia Type: General Estimated blood loss (mL): Minimal Specimen(s) collected/removed squamous cell carcinoma from scalp 2 Description of the Procedure indication for procedures: This gentleman, who has developed squamous cell carcinomas all over his body on numerous occasions in the past, presented with 2 lesions over the scalp, having the appearance of additional carcinomata. He was offered excision with frozen section to confirm the diagnosis and ensure negative margins, followed immediately by split thickness skin grafting. Informed consent was obtained after reviewing the operative details and complications of postoperative wound infection, failure of the graft and cardio- respiratory dysfunction. Description of the procedures: He was placed supine on the operative table and general anesthesia induced using a laryngeal mask airway. A gram of Ancef was administered intravenously as prophylaxis against wound infection. Sequential compression devices were placed around his legs, to minimize the risk of venous thrombosis. Left thigh was prepared and draped in the usual sterile manner, in preparation for harvesting a split thickness skin graft. This was followed by preparation of the scalp area for excision. A split-thickness graft was obtained from the left thigh and meshed using a dermatome. It was then placed in sterile saline, pending grafting. 1. Wide excision of squamous cell carcinoma-posterior scalp: We began the dissection on the posteriorly located lesion. Pre--emptive analgesia was established using after percent Marcaine with epinephrine.the lesion was excised down to the periosteum, oriented with silk sutures and sent for histological examination. Pathologist confirmed a squamous cell carcinoma with negative margins. Hemostasis was achieved using minimal use of cautery and ligaclips. Dilute epinephrine was placed over the site of excision to optimize hemostasis. The graft was then placed and secured with nelli. 2. Excision of squamous cell carcinoma-anterior scalp: A similar excision was performed and the lesion confirmed it to be a squamous cell carcinoma with some dysplasia. The margins were clear and split-thickness engraft followed in a similar fashion. Both grafted regions with covered with nonadherent dressing and secured with gauze bandage. He tolerated the procedures well, was extubated in the operating room and taken to the recovery room in a stable condition. Findings of the Procedure See op report Allergies and Home Medications Allergies Coded Allergies: No Known Drug Allergies (Unverified , 09/18/17) Home Medications Carvedilol 6.25 Mg Tablet, 6.25 MG PO BID, (Reported) Clopidogrel Bisulfate 75 Mg Tablet, 75 MG PO DAILY, (Reported) Divalproex Sodium 250 Mg Tablet.dr, 250 MG PO QID, (Reported) TAKE ONE TABLET EVERY MORNING, NOON, 6PM AND BEDTIME Divalproex Sodium 500 Mg Tablet.dr, 500 MG PO BID, (Reported) Donepezil HCl 5 Mg Tablet, 5 MG PO DAILY, (Reported) Ferrous Sulfate 325 Mg Tablet, 325 MG PO DAILY, (Reported) Hydralazine HCl 10 Mg Tablet, 10 MG PO DAILY, (Reported) Lisinopril 5 Mg Tablet, 5 MG PO DAILY, (Reported) Simvastatin 20 Mg Tablet, 20 MG PO DAILY, (Reported) Trazodone HCl 50 Mg Tablet, 50 MG PO HS, (Reported) ISI MAHMOOD MD Sep 25, 2017 10:10 am
[2017-09-25] MEDS ORDERED: HYDR-3820 PO (10:12)
--- NOTE | 2017-09-25 10:13 | Discharge Inst-Simple/Standard ---
Discharge Inst-Standard Discharge Medications New, Converted or Re-Newed RX: RX on Chart Patient Instructions/Follow Up Plan of Care/Instructions/FU: Dressings to remain intact until Saturday. May reinforce the donor site with ABD pads as needed.Follow-up with my nurse on Saturday for dressing change. Activity as Tolerated: Yes Discharge Diet: No Restrictions ISI MAHMOOD MD Sep 25, 2017 10:13 am
[2017-09-25 10:55] VITALS: BP 124/68
[2017-09-25 11:25] VITALS: BP 126/70
[2017-09-25] MEDS ORDERED: HYDR-3812 PO (11:42)
[2017-09-25 12:00] VITALS: BP 133/76
[2017-09-25 12:40] VITALS: BP 133/76
== END 2017-09-25 12:40 | disposition home or self-care (01) ==
LOC: SDC 06:16
PROVIDERS: ATTEND Surgery
DX: C44.42 Squamous cell carcinoma of skin of scalp and neck (principal); I25.10 Atherosclerotic heart disease of native coronary artery without angina pectoris; I10 Essential (primary) hypertension; E78.5 Hyperlipidemia, unspecified; I25.5 Ischemic cardiomyopathy; Z95.810 Presence of automatic (implantable) cardiac defibrillator; Z87.891 Personal history of nicotine dependence; Z79.02 Long term (current) use of antithrombotics/antiplatelets; Z79.899 Other long term (current) drug therapy

== ENCOUNTER → 2018-03-04 | Outpatient (CLI) | payer MEDICARE ==
[~2018-03-04] MED LIST changes: +ACHD5005 PO; +CATHETER FLUSH 10 ML SYR IV PRN; -FERR-74 PO; +FERR325T18 PO; +HYDR-3820 PO; +REGADENOSON 0.4 MG/5 ML SYR (LEXISCAN) IV ONE
[2018-03-04 09:35] VITALS: BP 134/74
[2018-03-04 09:37] VITALS: BP 140/79
[2018-03-04 09:41] VITALS: BP 141/77
--- NOTE | 2018-03-04 22:04 | STRESS TEST ---
DATE OF SERVICE: 03/04/2018 RESTING AND POST REGADENOSON TECHNETIUM-99M TETROFOSMIN SPECT CT IMAGING ORDERING PHYSICIAN: Tana Correia APRN PRIMARY PHYSICIAN: Dr. Estrella. OTHER PHYSICIAN: Dr. Manzo. CLINICAL DIAGNOSES: Coronary artery disease, ischemic cardiomyopathy. Baseline images were carried out after injection of 10.76 mCi of technetium-99 Tetrofosmin. This was followed by 0.4 mg regadenoson and 29.8 mCi of technetium-99 Tetrofosmin for stress imaging. The electrocardiogram showed sinus rhythm at baseline. The electrocardiogram did not change significantly with regadenoson infusion. The patient reported shortness of breath and flushing following regadenoson infusion, which resolved in a few minutes. Review of images at rest and following stress indicates a fixed inferolateral perfusion defect. Gated images show inferolateral akinesis and mild global hypokinesis. Left ventricular ejection fraction is calculated to be 25%. Left ventricular end diastolic volume is 130 mL. TID is absent (1.12). CONCLUSIONS: 1. Inferolateral myocardial infarction without ischemia. 2. Inferolateral akinesis and global hypokinesis. 3. Impairment of global left ventricular systolic function with a calculated ejection fraction of 25%. 4. Moderate cardiomegaly. Job ID: [id number] DocumentID: [id number] Dictated Date: 03/04/2018 18:06:11 Tool Specialist Date: 03/04/2018 22:03:40 Dictated By: MARGRET MANZO MD, MA, FACP, FACC,
== END ==
LOC: CARD 08:18
PROVIDERS: ATTEND Nurse Practitioner Family
DX: I25.10 Atherosclerotic heart disease of native coronary artery without angina pectoris (principal); I65.29 Occlusion and stenosis of unspecified carotid artery; E78.4 Other hyperlipidemia; I10 Essential (primary) hypertension; I25.5 Ischemic cardiomyopathy; I21.19 ST elevation (STEMI) myocardial infarction involving other coronary artery of inferior wall; Z95.810 Presence of automatic (implantable) cardiac defibrillator
CPT/HCPCS: 78452; 93017

== ENCOUNTER 2018-03-19 08:20 | Day surgery (SDC) | payer MEDICARE ==
[~2018-03-19] VITALS: Ht 177.8 cm; Wt 89.6 kg
[~2018-03-19 08:20] MED LIST changes: -CATHETER FLUSH 10 ML SYR IV PRN; +DIVA-74 PO; +DIVA-76 PO; -DIVA250T4 PO; -DIVA500T7 PO; -REGADENOSON 0.4 MG/5 ML SYR (LEXISCAN) IV ONE; +TRAZ-189 PO; -TRAZ-28 PO
--- NOTE | 2018-03-19 08:44 | Progress Note-Pre Operative ---
Pre-Operative Progress Note H&P Reviewed The H&P was reviewed, patient examined and no changes noted. Date Seen by Provider: Mar 13, 2018 Time Seen by Provider: 15:00 Date H&P Reviewed: Mar 19, 2018 Time H&P Reviewed: 08:44 Pre-Operative Diagnosis: Skin lesions ISI MAHMOOD MD Mar 19, 2018 8:44 am
[2018-03-19 08:50] VITALS: BP 135/74
[2018-03-19] MEDS ORDERED: LIDOCAINE PF 2% 5 ML (XYLOCAINE) VIAL ONE (08:59)
[2018-03-19] MEDS ORDERED: proPOfol 200 MG/20 ML (DIPRIVAN) VIAL IV ONE (08:59)
[2018-03-19] MEDS ORDERED: SEVOFLURANE (ULTANE) 15 ML INHAL SOLN ONE ×2 (08:59→11:12)
[2018-03-19] MEDS ORDERED: MIDAZOLAM 2 MG/2 ML (VERSED) VIAL ONE (08:59)
[2018-03-19] MEDS ORDERED: fentaNYL INJECTION 100 MCG/2 ML AMP ONE (08:59)
[2018-03-19] MEDS ORDERED: ONDANSETRON 4 MG/2 ML (SDV) Z0FRAN ONE (08:59)
[2018-03-19] MEDS ORDERED: BUP/EPI 0.5% 1:200,000 (SENSORCAINE) 30 ML VIAL ONE (09:12)
[2018-03-19] MEDS: LACTATED RINGERS 1,000 ML IV PRN ×2 (09:13→10:29)
[2018-03-19] MEDS ORDERED: EPINEPHrine INJECTION 1 MG/ML AMP ONE (09:13)
[2018-03-19] MEDS ORDERED: ceFAZolin 2 GM/50 ML PRE-MIX IVPB IV ONE (09:15)
[2018-03-19] MEDS ORDERED: DEXAMETHASONE 10 MG/ML (DECADRON) 1 ML VIAL ONE (09:34)
[2018-03-19] MEDS ORDERED: GLYCOPYRROLATE 0.2 MG/ML (ROBINUL) 2 ML VIAL ONE (11:05)
--- NOTE | 2018-03-19 11:19 | Operative Report ---
Operative Report Date of Procedure/Surgery Mar 19, 2018 Surgeon (s) ISI MAHMOOD MD Fruit Receiver (s): N/A Post-Operative Diagnosis Same Procedure Performed Excision Times 4 with split thickness skin grafting Description of Procedure Anesthesia Type: General Estimated blood loss (mL): Minimal Specimen(s) collected/removed Skin lesions Description of the Procedure Indication for the procedure: This gentleman, with a history of squamous cell carcinoma of the skin, mainly involving his scalp and face area, presented with a total of 4 additional lesions involving his occipital region of the scalp and frontal region and the left side of his forehead having similar appearances. He was offered excision split thickness skin graft. Informed consent was obtained after reviewing the procedures in detail. Description of the procedures: She was placed supine on the operating table and general anesthesia induced. A gram of Ancef was administered intravenously as prophylaxis against wound infection His scalp and upper face were prepared and draped in the usual sterile manner. 1. Excision of skin lesion-occipital region, posterior: After establishing pre- emptied analgesia with 0.5 percent Marcaine and epinephrine, the lesion was excised down to the periosteum of the skull. The excision measured 4 cm in diameter, in a circular fashion. Hemostasis was achieved using bipolar cautery and clips. A split thickness skin grafting obtain from his right thigh was placed over the area of excision, being secured with nelli (16 cm) 2. Excision of skin lesion-occipital region, anterior with split thickness skin grafting. A similar excision performed, followed by split-thickness skin grafting, to a surface area of 16 cm. 3. Excision of skin lesion frontal region of scalp with split-thickness skin grafting: This lesion measured 3 cm in diameter and was excised down to the periosteum. Hemostasis was achieved using bipolar cautery and the split thickness skin graft secured with nelli. It measured 9 cm 4. Excision of lesion left side of forehead with split-thickness skin grafting : A similar excision was performed followed by split-thickness skin graft to 9 cm in surface area. Nonadherent dressings were applied, being secured with Kerlix bandage. The donor site over the right thigh was dressed with a nonadherent dressing as well. He tolerated the procedure well, was extubated in the operating room and taken to the recovery area in a stable condition. Findings of the Procedure See op report Allergies and Home Medications Allergies Coded Allergies: No Known Drug Allergies (Unverified , 09/18/17) Home Medications Carvedilol 6.25 Mg Tablet, 6.25 MG PO BID, (Reported) Clopidogrel Bisulfate 75 Mg Tablet, 75 MG PO DAILY, (Reported) Divalproex Sodium 250 Mg Tablet.dr, 250 MG PO QID, (Reported) TAKE ONE TABLET EVERY MORNING, NOON, 6PM AND BEDTIME Divalproex Sodium 500 Mg Tablet.dr, 500 MG PO BID, (Reported) Donepezil HCl 5 Mg Tablet, 5 MG PO DAILY, (Reported) Ferrous Sulfate 325 Mg Tablet, 325 MG PO DAILY, (Reported) Hydralazine HCl 10 Mg Tablet, 10 MG PO DAILY, (Reported) Lisinopril 5 Mg Tablet, 5 MG PO DAILY, (Reported) Simvastatin 20 Mg Tablet, 20 MG PO DAILY, (Reported) Trazodone HCl 50 Mg Tablet, 50 MG PO HS, (Reported) Patient Home Medication List Home Medication List Reviewed: Yes ISI MAHMOOD MD Mar 19, 2018 11:19 am
[2018-03-19] MEDS ORDERED: ACHD5005 PO (11:20)
--- NOTE | 2018-03-19 11:21 | Discharge Inst-Simple/Standard ---
Discharge Inst-Standard Discharge Medications New, Converted or Re-Newed RX: RX on Chart Patient Instructions/Follow Up Plan of Care/Instructions/FU: Dressings over the scalp to remain intact until Saturday. Follow-up with my nurse on Saturday morning and dressing change. Dressing over the right thigh may be reinforced with ABD pads and Kerlix wrap as needed Activity as Tolerated: Yes Discharge Diet: No Restrictions ISI MAHMOOD MD Mar 19, 2018 11:21 am
--- NOTE | 2018-03-19 11:23 | Discharge Inst-Simple/Standard ---
Discharge Inst-Standard Discharge Medications New, Converted or Re-Newed RX: RX on Chart Patient Instructions/Follow Up Plan of Care/Instructions/FU: Dressing over the scalp to remain intact until Saturday. Follow-up with my nurse on Saturday morning for dressing change. May reinforce the dressing over the right thigh with ABD pads and kerlix as needed. May resume Plavix on Saturday, the Activity as Tolerated: Yes Discharge Diet: No Restrictions ISI MAHMOOD MD Mar 19, 2018 11:23 am
[2018-03-19] MEDS ORDERED: ONDANSETRON 4 MG/2 ML (SDV) Z0FRAN IVP PRN (11:30)
[2018-03-19] MEDS ORDERED: morphine INJ 10 MG/ML 1ML (SYR OR VIAL) IVP PRN (11:30)
[2018-03-19] MEDS ORDERED: MEPERIDINE (DEMEROL) INJ 50 MG/ML IVP PRN (11:30)
--- NOTE | 2018-03-19 12:01 | Anesthesia-General Post-Op ---
General Patient Condition Mental Status/LOC: Same as Preop Cardiovascular: Satisfactory Nausea/Vomiting: Absent Respiratory: Satisfactory Pain: Controlled Complications: Absent Post Op Complications Complications None Follow Up Care/Instructions Patient Instructions None needed. Anesthesia/Patient Condition Patient Condition Patient is doing well, no complaints, stable vital signs, no apparent adverse anesthesia problems. No complications reported per nursing. D/C [place] [facility] [place] Criteria: Yes ESTELITA MCELROY CRNA Mar 19, 2018 12:01
[2018-03-19 12:20] VITALS: BP 139/82
[2018-03-19 12:50] VITALS: BP 137/80
[2018-03-19 13:20] VITALS: BP 136/76
[2018-03-19 13:32] VITALS: BP 136/76
== END 2018-03-19 13:32 | disposition home or self-care (01) ==
LOC: SDC 08:20
PROVIDERS: ATTEND Surgery
DX: L57.0 Actinic keratosis (principal); C44.42 Squamous cell carcinoma of skin of scalp and neck; Z11.2 Encounter for screening for other bacterial diseases; I25.10 Atherosclerotic heart disease of native coronary artery without angina pectoris; I25.5 Ischemic cardiomyopathy; E78.5 Hyperlipidemia, unspecified; I10 Essential (primary) hypertension; Z95.810 Presence of automatic (implantable) cardiac defibrillator; Z87.891 Personal history of nicotine dependence
CPT/HCPCS: 87081; 88305

== ENCOUNTER 2018-05-14 05:30 | Outpatient (CLI) | payer MEDICARE ==
[~2018-05-14] VITALS: Ht 177.8 cm; Wt 89.6 kg
[~2018-05-14 05:30] MED LIST changes: -DIVA-74 PO; -DIVA-76 PO; +DIVA250T4 PO; +DIVA500T7 PO; -TRAZ-189 PO; +TRAZ-28 PO
== END 2018-05-14 09:48 ==
LOC: PREOP 05:30
PROVIDERS: ATTEND Surgery
DX: Z01.818 Encounter for other preprocedural examination (principal); L98.9 Disorder of the skin and subcutaneous tissue, unspecified

== ENCOUNTER 2018-05-16 09:10 | Day surgery (SDC) | payer MEDICARE ==
[~2018-05-16] VITALS: Ht 177.8 cm; Wt 89.6 kg
[2018-05-16 09:10] VITALS: BP 135/80
--- NOTE | 2018-05-16 09:25 | Progress Note-Pre Operative ---
Pre-Operative Progress Note H&P Reviewed The H&P was reviewed, patient examined and no changes noted. Date Seen by Provider: May 06, 2018 Time Seen by Provider: 11:20 Date H&P Reviewed: May 16, 2018 Time H&P Reviewed: 09:25 Pre-Operative Diagnosis: Skin lesions ISI MAHMOOD MD May 16, 2018 9:25 am
[2018-05-16] MEDS ORDERED: LACTATED RINGERS 1,000 ML IV PRN (09:31)
[2018-05-16] MEDS ORDERED: proPOfol 200 MG/20 ML (DIPRIVAN) VIAL IV ONE (09:34)
[2018-05-16] MEDS ORDERED: LIDOCAINE PF 2% 5 ML (XYLOCAINE) VIAL ONE (09:34)
[2018-05-16] MEDS ORDERED: ONDANSETRON 4 MG/2 ML (SDV) Z0FRAN ONE (09:34)
[2018-05-16] MEDS ORDERED: fentaNYL INJECTION 100 MCG/2 ML AMP ONE (09:35)
[2018-05-16] MEDS ORDERED: BUP/EPI 0.5% 1:200,000 (SENSORCAINE) 30 ML VIAL ONE (09:43)
[2018-05-16] MEDS ORDERED: ceFAZolin 2 GM IV Premixed 50 ML IV ONE (09:45)
--- OUTSIDE RECORDS SUMMARY | 2018-05-16 09:47 | XMS REPORT | Clinical Summary ---
Author Author [facility] Organization [facility] Address Unknown Phone Unavailable Care Team Providers Care Shift Supervisor Name Role Phone Jaxon Estrella MD PCP Source Comments Some departments are not documenting in the electronic medical record. If you do not see the information that you expected, contact Release of Information in the Health Information Management department at [phone] for further assistance in locating additional records.[facility] Allergies No Known Allergies Current Medications Prescription [...] hypercapnia (HCC) 01/22/2017 Chronic systolic heart failure ([facility]) 01/22/2017 Seizure ([facility]) 01/21/2017 Social History Tobacco Use Types Packs/Day Years Used Date Never Smoker Sex Assigned at Date Recorded Not on file Last Filed Vital Signs Vital Sign Reading Time Taken Blood Pressure 129/82 01/24/2017 10:27 AM [facility] Pulse 62 01/24/2017 12:24 PM [facility] Temperature 36.5 C (97.7 F) 01/24/2017 10:27 AM [facility] Respiratory Rate - - Oxygen Saturation 97% 01/24/2017 10:27 AM [facility] Inhaled Oxygen - - Concentration Weight 91.5 kg (201 lb 11.5 oz) 01/21/2017 8:00 PM [facility] Height 177.8 cm (5' 10") 01/21/2017 8:00 PM [facility] Body Mass Index 28.94 01/21/2017 8:00 PM [facility] Plan of Treatment Health Maintenance Due Date Last Done Comments PHYSICAL (COMPREHENSIVE) 1947 EXAM PERTUSSIS VACCINE 1951 TETANUS VACCINE 1957 SHINGLES VACCINE 2000 PNEUMONIA (PCV13/PPSV23) 2005 VACCINES (1 of 2 - PCV13) INFLUENZA VACCINE 09/01/2018 Results Not on filefrom Last 3 Months
--- OUTSIDE RECORDS SUMMARY | 2018-05-16 09:49 | XMS REPORT | Continuity of Care Document ---
Author Author [facility] Organization [facility] Address Unknown Phone Unavailable Allergies Active Description Code Type Severity Reaction Onset Reported/Identified Relationship to Patient Clinical Status Yes NKANo Known Allergies NKA Miscellaneous Allergy Mild N/A 01/18/2006 Yes No Known Drug Allergies [id number] Drug Allergy Unknown N/A 09/18/2017 Medications There is no data. Problems Date Dx Coded Attending Type Code Diagnosis Diagnosed By 07/11/2009 Ot 438.10 07/11/2009 Ot V57.3 10/10/2009 Ot 438.10 10/10/2009 Ot V57.3 01/11/2010 Ot 438.10 01/11/2010 Ot V57.3 01/12/2010 Ot 305.1 01/12/2010 Ot 786.07 04/12/2010 Ot 438.19 04/12/2010 Ot V57.3 07/12/2010 Ot 438.19 07/12/2010 Ot V57.3 10/11/2010 Ot 438.19 10/11/2010 Ot V57.3 11/30/2010 Ot 438.19 11/30/2010 Ot V57.3 06/05/2011 Ot 173.3 06/05/2011 Ot 173.6 06/05/2011 Ot 701.1 01/08/2013 Ot 173.30 UNSP MALIGN NEOPLASM OF SKIN OF OT UN 01/08/2013 Ot 702.0 ACTINIC KERATOSIS 01/08/2013 Ot V58.31 ENCOUNTER FOR CHANGE OR REMOVAL OF SURGI 07/23/2013 ELA MESSER, ISI Paniagua Ot 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 07/23/2013 ELA MESSER, ISI Paniagua Ot V58.63 LONG-TERM(CURRENT)USE OF ANTIPLATELET/AN 07/23/2013 ELA MESSER, ISI Paniagua Ot V58.69 OT MED,LT,CURRENT USE 12/21/2014 Ot 414.8 12/21/2014 Ot V45.02 12/21/2014 Ot 173.3 12/21/2014 Ot 173.6 12/21/2014 Ot V72.63 12/21/2014 Ot V72.81 12/21/2014 Ot V74.8 12/21/2014 Ot 414.01 12/21/2014 Ot 414.8 12/21/2014 Ot 709.9 12/21/2014 Ot V72.63 12/21/2014 Ot V72.81 12/21/2014 Ot V74.8 12/21/2014 ELA MESSER, ISI M Ot 709.9 12/21/2014 ELA MESSER, ISI M Ot V72.83 12/21/2014 ELA MESSER, ISI M Ot V74.8 12/23/2014 ELA MESSER, ISI M Ot 709.9 12/23/2014 ELA MESSER, ISI M Ot V72.83 12/23/2014 ELA MESSER, ISI M Ot V74.8 12/23/2014 ELA MESSER, ISI M Ot 173.02 SQUAMOUS CELL CARCINOMA OF SKIN OF LIP 12/23/2014 ELA MESSER, ISI M Ot 173.61 BASAL CELL CARCINOMA OF SKIN OF UPPER LI 12/23/2014 ELA MESSER, ISI M Ot 709.9 12/29/2014 ELA MESSER, ISI M Ot 709.9 12/29/2014 ELA MESSER, ISI M Ot V72.83 12/29/2014 ELA MESSER, ISI M Ot V74.8 01/11/2015 ELA MESSER, ISI M Ot 709.9 01/11/2015 ELA MESSER, ISI M Ot V72.83 01/11/2015 ELA MESSER, ISI M Ot V74.8 01/20/2015 ELA MESSER, ISI M Ot 709.9 01/20/2015 ELA MESSER, ISI M Ot V72.83 01/20/2015 ELA MESSER, ISI M Ot V74.8 05/09/2015 Ot 414.8 05/09/2015 Ot V45.02 05/09/2015 Ot 173.3 05/09/2015 Ot 173.6 05/09/2015 Ot V72.63 05/09/2015 Ot V72.81 05/09/2015 Ot V74.8 05/09/2015 Ot 414.01 05/09/2015 Ot 414.8 05/09/2015 Ot 709.9 05/09/2015 Ot V72.63 05/09/2015 Ot V72.81 05/09/2015 Ot V74.8 05/09/2015 ELA MESSER, ISI Paniagua Ot 709.9 05/09/2015 ELA MESSER, ISI Paniagua Ot V72.83 05/09/2015 ELA MESSER, ISI Paniagua Ot V74.8 05/09/2015 ELA MESSER, ISI Paniagua Ot 709.9 05/09/2015 ELA MESSER, ISI Paniagua Ot V72.83 05/09/2015 ELA MESSER, ISI Paniagua Ot V74.8 05/11/2015 Ot 414.8 05/11/2015 Ot V45.02 05/11/2015 Ot 173.3 05/11/2015 Ot 173.6 05/11/2015 Ot V72.63 05/11/2015 Ot V72.81 05/11/2015 Ot V74.8 05/11/2015 Ot 414.01 05/11/2015 Ot 414.8 05/11/2015 Ot 709.9 05/11/2015 Ot V72.63 05/11/2015 Ot V72.81 05/11/2015 Ot V74.8 05/11/2015 ELA MESSER, ISI Paniagua Ot 709.9 05/11/2015 ELA MESSER, ISI Paniagua Ot V72.83 05/11/2015 ELA MESSER, ISI Paniagua Ot V74.8 05/11/2015 ELA MESSER, ISI Paniagua Ot 709.9 05/11/2015 ELA MESSER, ISI Paniagua Ot V72.83 05/11/2015 ELA MESSER, ISI Paniagua Ot V74.8 06/02/2015 BAIMA, JUN L NUT SIFTER Ot 272.4 06/02/2015 BAIMA, JUN L NUT SIFTER Ot 401.9 06/02/2015 BAIMA, JUN L NUT SIFTER Ot 414.00 06/02/2015 BAIMA, JUN L NUT SIFTER Ot V45.02 06/09/2015 BAIMA, JUN L NUT SIFTER Ot 272.4 06/09/2015 BAIMA, JUN L NUT SIFTER Ot 401.9 06/09/2015 BAIMA, JUN L NUT SIFTER Ot 414.00 06/09/2015 BAIMA, JUN L NUT SIFTER Ot V45.02 10/18/2015 ANAIS MESSER FACC, ALI FACP CCDS Ot E78.5 HYPERLIPIDEMIA, UNSPECIFIED 10/18/2015 ANAIS MESSER FACC, ALI FACP CCDS Ot G40.909 EPILEPSY, UNSP, NOT INTRACTABLE, WITHOUT 10/18/2015 ANAIS MESSER FACC, ALI FACP CCDS Ot I12.9 HYPERTENSIVE CHRONIC KIDNEY DISEASE W ST 10/18/2015 ANAIS MESSER FACChristelle, ALI FACP CCDS Ot I25.10 ATHSCL HEART DISEASE OF [place] CORONARY 10/18/2015 ANAIS MESSER FACC, ALI FACP CCDS Ot I25.5 ISCHEMIC CARDIOMYOPATHY 10/18/2015 ANAIS MESSER FACC, ALI FACP CCDS Ot N18.9 CHRONIC KIDNEY DISEASE, UNSPECIFIED 10/18/2015 ANAIS MESSER FACC, ALI FACP CCDS Ot Z45.02 ENCNTR FOR ADJUST AND MGMT OF AUTOMATIC 10/18/2015 ANAIS MESSER FACC, ALI FACP CCDS Ot Z79.899 OTHER METAL OFF BEARER (CURRENT) DRUG THERAPY 10/18/2015 ANAIS MESSER FACC, ALI FACP CCDS Ot Z87.891 PERSONAL HISTORY OF NICOTINE DEPENDENCE 11/09/2015 ANAIS MESSER FACC, ALI FACP CCDS Ot I25.5 01/10/2016 ELA MESSER, ISI Paniagua Ot Z01.818 01/11/2016 Ot 414.8 01/11/2016 Ot V45.02 01/11/2016 Ot 173.3 01/11/2016 Ot 173.6 01/11/2016 Ot V72.63 01/11/2016 Ot V72.81 01/11/2016 Ot V74.8 01/11/2016 Ot 414.01 01/11/2016 Ot 414.8 01/11/2016 Ot 709.9 01/11/2016 Ot V72.63 01/11/2016 Ot V72.81 01/11/2016 Ot V74.8 01/11/2016 ELA MESSER, ISI Paniagua Ot 709.9 01/11/2016 ELA MESSER, ISI Paniagua Ot V72.83 01/11/2016 ELA MESSER, ISI Paniagua Ot V74.8 01/11/2016 ELA MESSER, ISI Paniagua Ot 709.9 01/11/2016 ELA MESSER, ISI Paniagua Ot V72.83 01/11/2016 ELA MESSER, ISI P[place] Ot V74.8 01/11/2016 JUN DON L NUT SIFTER Ot 272.4 01/11/2016 BAIJUN AMEZQUITA L NUT SIFTER Ot 401.9 01/11/2016 BAIJUN AMEZQUITA L NUT SIFTER Ot 414.00 01/11/2016 BAIJUN AMEZQUITA L NUT SIFTER Ot V45.02 01/11/2016 ANAIS MESSER FACC, ALI FACP CCDS Ot I25.5 01/11/2016 ISI MAHMOOD MD Ot Z01.818 01/11/2016 ISI MAHMOOD MD, Ot 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 01/11/2016 ISI MAHMOOD MD, Ot C44.622 SQUAMOUS CELL CARCINOMA SKIN/ RIGHT UPPE 01/11/2016 ISI MAHMOOD MD, Ot E78.5 HYPERLIPIDEMIA, UNSPECIFIED 01/11/2016 ISI MAHMOOD MD Ot I10 ESSENTIAL (PRIMARY) HYPERTENSION 01/11/2016 ISI MAHMOOD MD Ot I25.10 ATHSCL HEART DISEASE OF [place] CORONARY 01/11/2016 ELA MESSER, IIS Paniagua Ot Z11.2 ENCOUNTER FOR SCREENING FOR OTHER BACTER 01/11/2016 ISI MAHMOOD MD Ot Z95.810 PRESENCE OF AUTOMATIC (IMPLANTABLE) CARD 04/01/2016 Ot 414.00 04/01/2016 Ot 414.8 04/01/2016 Ot V72.81 04/01/2016 Ot V72.83 04/01/2016 Ot V74.8 05/02/2016 Ot 414.00 05/02/2016 Ot 414.8 05/02/2016 Ot V72.81 05/02/2016 Ot V72.83 05/02/2016 Ot V74.8 09/10/2016 ISI MAHMOOD MD Ot 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 09/10/2016 ISI MAHMOOD MD Ot C44.622 SQUAMOUS CELL CARCINOMA SKIN/ RIGHT UPPE 09/10/2016 ISI MAHMOOD MD Ot E78.5 HYPERLIPIDEMIA, UNSPECIFIED 09/10/2016 ISI MAHMOOD MD Ot I10 ESSENTIAL (PRIMARY) HYPERTENSION 09/10/2016 ISI MAHMOOD MD Ot I25.10 ATHSCL HEART DISEASE OF [place] CORONARY 09/10/2016 ISI MAHMOOD MD Ot Z11.2 ENCOUNTER FOR SCREENING FOR OTHER BACTER 09/10/2016 ELA MESSER, ISI Paniagua Ot Z95.810 PRESENCE OF AUTOMATIC (IMPLANTABLE) CARD 10/19/2016 ELA MESSER, ISI Paniagua Ot L98.9 DISORDER OF THE SKIN AND SUBCUTANEOUS TI 10/19/2016 ELA MESSER, ISI P[place] Ot Z01.818 ENCOUNTER FOR OTHER PREPROCEDURAL EXAMIN 10/24/2016 ELA MESSER, ISI Paniagua Ot C44.612 BASAL CELL CARCINOMA SKIN/ RIGHT UPPER L 10/24/2016 ELA MESSER, ISI Paniagua Ot 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 10/24/2016 ELA MESSER, ISI Paniagua Ot L82.1 OTHER SEBORRHEIC KERATOSIS 12/05/2016 ELA MESSER, ISI Paniagua Ot C44.612 BASAL CELL CARCINOMA SKIN/ RIGHT UPPER L 12/05/2016 ELA MESSER, ISI Paniagua Ot 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 12/05/2016 ELA MESSER, ISI Paniagua Ot L82.1 OTHER SEBORRHEIC KERATOSIS 01/21/2017 OSCAR SUAREZ DO Ot G81.91 HEMIPLEGIA, UNSPECIFIED AFFECTING RIGHT 01/21/2017 OSCAR SUAREZ DO Ot I25.10 ATHSCL HEART DISEASE OF [place] CORONARY 01/21/2017 OSCAR SUAREZ DO Ot R29.810 FACIAL WEAKNESS 01/21/2017 OSCAR SUAREZ DO Ot R56.9 UNSPECIFIED CONVULSIONS 01/21/2017 OSCAR SUAREZ DO Ot Z79.899 OTHER INTERMEDIATE (CURRENT) DRUG THERAPY 01/21/2017 OSCAR SUAREZ DO Ot Z87.820 PERSONAL HISTORY OF TRAUMATIC BRAIN INJU 01/24/2017 OSCAR SUAREZ DO Ot G81.91 HEMIPLEGIA, UNSPECIFIED AFFECTING RIGHT 01/24/2017 OSCAR SUAREZ DO Ot I25.10 ATHSCL HEART DISEASE OF [place] CORONARY 01/24/2017 OSCAR SUAREZ DO Ot R29.810 FACIAL WEAKNESS 01/24/2017 OSCAR SUAREZ DO Ot R56.9 UNSPECIFIED CONVULSIONS 01/24/2017 OSCAR SUAREZ DO Ot Z79.899 OTHER INTERMEDIATE (CURRENT) DRUG THERAPY 01/24/2017 OSCAR SUAREZ DO Ot Z87.820 PERSONAL HISTORY OF TRAUMATIC BRAIN INJU 05/28/2017 FLOR COLEMAN MD Ot G40.909 EPILEPSY, UNSP, NOT INTRACTABLE, WITHOUT 06/05/2017 FLOR COLEMAN MD Ot G40.909 EPILEPSY, UNSP, NOT INTRACTABLE, WITHOUT 09/18/2017 ISI MAHMOOD MD Ot L98.9 DISORDER OF THE SKIN AND SUBCUTANEOUS TI 09/18/2017 ISI MAHMOOD MD Ot Z01.818 ENCOUNTER FOR OTHER PREPROCEDURAL EXAMIN 09/19/2017 ISI MAHMOOD MD Ot L98.9 DISORDER OF THE SKIN AND SUBCUTANEOUS TI 09/19/2017 ISI MAHMOOD MD Ot Z01.818 ENCOUNTER FOR OTHER PREPROCEDURAL EXAMIN 09/25/2017 ISI MAHMOOD MD Ot 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 09/25/2017 ISI MAHMOOD MD Ot E78.5 HYPERLIPIDEMIA, UNSPECIFIED 09/25/2017 ISI MAHMOOD MD Ot I10 ESSENTIAL (PRIMARY) HYPERTENSION 09/25/2017 ISI MAHMOOD MD Ot I25.10 ATHSCL HEART DISEASE OF [place] CORONARY 09/25/2017 ISI MAHMOOD MD Ot I25.5 ISCHEMIC CARDIOMYOPATHY 09/25/2017 ISI MAHMOOD MD Ot Z79.02 INTERMEDIATE (CURRENT) USE OF ANTITHROMBOTI 09/25/2017 ISI MAHMOOD MD Ot Z79.899 OTHER METAL OFF BEARER (CURRENT) DRUG THERAPY 09/25/2017 ISI MAHMOOD MD Ot Z87.891 PERSONAL HISTORY OF NICOTINE DEPENDENCE 09/25/2017 ISI MAHMOOD MD Ot Z95.810 PRESENCE OF AUTOMATIC (IMPLANTABLE) CARD 02/27/2018 Ot 709.9 SKIN DISORDER NOS 02/27/2018 Ot V72.63 PRE- PROCEDURAL LABORATORY EXAMINATION 02/27/2018 Ot V72.81 EXAM-PRE- OPERATIVE CARDIOVASCULAR 02/27/2018 Ot V74.8 SCREEN- BACTERIAL DIS NEC 02/27/2018 ISI MAHMOOD MD Ot 709.9 SKIN DISORDER NOS 02/27/2018 ISI MAHMOOD MD Ot V72.83 EXAM PRE-OPERATIVE NEC 02/27/2018 ISI MAHMOOD MD Ot V74.8 SCREEN-BACTERIAL DIS NEC 02/27/2018 ELA MESSER, ISI Paniagua Ot 709.9 SKIN DISORDER NOS 02/27/2018 ELA MESSER, ISI [place]agua Ot V72.83 EXAM PRE-OPERATIVE NEC 02/27/2018 ELA EMSSER, ISI Paniagua Ot V74.8 SCREEN-BACTERIAL DIS NEC 02/27/2018 BAIMA, JUN L NUT SIFTER Ot 272.4 HYPERLIPIDEMIA NEC/NOS 02/27/2018 BAIMA, JUN L NUT SIFTER Ot 401.9 HYPERTENSION NOS 02/27/2018 BAIMA, UJN L NUT SIFTER Ot 414.00 CORON ATHEROSCLER NOS TYPE VESSEL, NATIV 02/27/2018 BAIMA, JUN L NUT SIFTER Ot V45.02 AUTO IMPLANTABLE CARDIAC DEFIBRILLATOR I 02/27/2018 ANAIS MESSER FACC, MARGRET CORREIA CCDS Ot I25.5 ISCHEMIC CARDIOMYOPATHY 02/27/2018 ELA MESSER, ISI [place] Ot Z01.818 ENCOUNTER FOR OTHER PREPROCEDURAL EXAMIN 02/27/2018 JARED MESSER, FLOR K Ot G40.909 EPILEPSY, UNSP, NOT INTRACTABLE, WITHOUT 03/05/2018 BAIMA, JUN L NUT SIFTER Ot E78.4 OTHER HYPERLIPIDEMIA 03/05/2018 BAIMA, JUN L NUT SIFTER Ot I10 ESSENTIAL (PRIMARY) HYPERTENSION 03/05/2018 BAIMA, JUN L NUT SIFTER Ot 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 03/05/2018 BAIMA, JUN L NUT SIFTER Ot I25.10 ATHSCL HEART DISEASE OF [place] CORONARY 03/05/2018 BAIMA, JUN L NUT SIFTER Ot I25.5 ISCHEMIC CARDIOMYOPATHY 03/05/2018 BAIMA, JUN L NUT SIFTER Ot I65.29 OCCLUSION AND STENOSIS OF UNSPECIFIED CA 03/05/2018 BAIMA, JUN L NUT SIFTER Ot Z95.810 PRESENCE OF AUTOMATIC (IMPLANTABLE) CARD 03/05/2018 BAIMA, JUN L NUT SIFTER Ot E78.4 OTHER HYPERLIPIDEMIA 03/05/2018 BAIMA, JUN L NUT SIFTER Ot I10 ESSENTIAL (PRIMARY) HYPERTENSION 03/05/2018 BAIMA, JUN L NUT SIFTER Ot 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 03/05/2018 BAIMA, JUN L NUT SIFTER Ot I25.10 ATHSCL HEART DISEASE OF [place] CORONARY 03/05/2018 BAIMA, JUN L NUT SIFTER Ot I25.5 ISCHEMIC CARDIOMYOPATHY 03/05/2018 BAIMA, JUN L NUT SIFTER Ot I65.29 OCCLUSION AND STENOSIS OF UNSPECIFIED CA 03/05/2018 BAIMA, JUN L NUT SIFTER Ot Z95.810 PRESENCE OF AUTOMATIC (IMPLANTABLE) CARD 03/12/2018 Ot 709.9 SKIN DISORDER NOS 03/12/2018 Ot V72.63 PRE- PROCEDURAL LABORATORY EXAMINATION 03/12/2018 Ot V72.81 EXAM-PRE- OPERATIVE CARDIOVASCULAR 03/12/2018 Ot V74.8 SCREEN- BACTERIAL DIS NEC 03/12/2018 ELA MESSER, ISI Paniagua Ot 709.9 SKIN DISORDER NOS 03/12/2018 ELA MESSER, ISI Paniagua Ot V72.83 EXAM PRE-OPERATIVE NEC 03/12/2018 ELA MESSER, ISI Paniagua Ot V74.8 SCREEN-BACTERIAL DIS NEC 03/12/2018 ELA MESSER, ISI Paniagua Ot 709.9 SKIN DISORDER NOS 03/12/2018 ELA MESSER, ISI Paniagua Ot V72.83 EXAM PRE-OPERATIVE NEC 03/12/2018 ELA MESSER, ISI Paniagua Ot V74.8 SCREEN-BACTERIAL DIS NEC 03/12/2018 BAIMA, JUN L NUT SIFTER Ot 272.4 HYPERLIPIDEMIA NEC/NOS 03/12/2018 BAIMA, JUN L NUT SIFTER Ot 401.9 HYPERTENSION NOS 03/12/2018 BAIMA, JUN L NUT SIFTER Ot 414.00 CORON ATHEROSCLER NOS TYPE VESSEL, NATIV 03/12/2018 BAIMA, JUN L NUT SIFTER Ot V45.02 AUTO IMPLANTABLE CARDIAC DEFIBRILLATOR I 03/12/2018 ANAIS MESSER FACC, ALI FACP CCDS Ot I25.5 ISCHEMIC CARDIOMYOPATHY 03/12/2018 ELA MESSER, ISI P[place]agua Ot Z01.818 ENCOUNTER FOR OTHER PREPROCEDURAL EXAMIN 03/12/2018 JARED MESSER, FLOR K Ot G40.909 EPILEPSY, UNSP, NOT INTRACTABLE, WITHOUT 03/12/2018 BAIMA, JUN L NUT SIFTER Ot E78.4 OTHER HYPERLIPIDEMIA 03/12/2018 BAIMA, JUN L NUT SIFTER Ot I10 ESSENTIAL (PRIMARY) HYPERTENSION 03/12/2018 BAIMA, JUN L NUT SIFTER Ot 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 03/12/2018 BAIMA, JUN L NUT SIFTER Ot I25.10 ATHSCL HEART DISEASE OF [place] CORONARY 03/12/2018 BAIBIA JUN L NUT SIFTER Ot I25.5 ISCHEMIC CARDIOMYOPATHY 03/12/2018 BAIBIA, JUN L NUT SIFTER Ot I65.29 OCCLUSION AND STENOSIS OF UNSPECIFIED CA 03/12/2018 BAIBIA JUN L NUT SIFTER Ot Z95.810 PRESENCE OF AUTOMATIC (IMPLANTABLE) CARD 03/13/2018 Ot 709.9 SKIN DISORDER NOS 03/13/2018 Ot V72.63 PRE- PROCEDURAL LABORATORY EXAMINATION 03/13/2018 Ot V72.81 EXAM-PRE- OPERATIVE CARDIOVASCULAR 03/13/2018 Ot V74.8 SCREEN- BACTERIAL DIS NEC 03/13/2018 ELA MESSER, ISI Paniagua Ot 709.9 SKIN DISORDER NOS 03/13/2018 ELA MESSER, ISI Paniagua Ot V72.83 EXAM PRE-OPERATIVE NEC 03/13/2018 ELA MESSER, ISI Paniagua Ot V74.8 SCREEN-BACTERIAL DIS NEC 03/13/2018 ELA MESSER, ISI Paniagua Ot 709.9 SKIN DISORDER NOS 03/13/2018 ELA MESSER, ISI Paniagua Ot V72.83 EXAM PRE-OPERATIVE NEC 03/13/2018 ELA MESSER, ISI Paniagua Ot V74.8 SCREEN-BACTERIAL DIS NEC 03/13/2018 BAIMA, JUN L NUT SIFTER Ot 272.4 HYPERLIPIDEMIA NEC/NOS 03/13/2018 MATEOMA, JUN L NUT SIFTER Ot 401.9 HYPERTENSION NOS 03/13/2018 ARIAN, JUN L NUT SIFTER Ot 414.00 CORON ATHEROSCLER NOS TYPE VESSEL, NATIV 03/13/2018 ARIAN JUN L NUT SIFTER Ot V45.02 AUTO IMPLANTABLE CARDIAC DEFIBRILLATOR I 03/13/2018 ANAIS MESSER FACC, ALI FACP CCDS Ot I25.5 ISCHEMIC CARDIOMYOPATHY 03/13/2018 ELA MESSER, ISI Paniagua Ot Z01.818 ENCOUNTER FOR OTHER PREPROCEDURAL EXAMIN 03/13/2018 JARED MESSER, FLOR Hernandez Ot G40.909 EPILEPSY, UNSP, NOT INTRACTABLE, WITHOUT 03/13/2018 BAIMA, JUN L NUT SIFTER Ot E78.4 OTHER HYPERLIPIDEMIA 03/13/2018 BAIMA, JUN L NUT SIFTER Ot I10 ESSENTIAL (PRIMARY) HYPERTENSION 03/13/2018 BAIMA, JUN L NUT SIFTER Ot 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 03/13/2018 ARIAN JUN L NUT SIFTER Ot I25.10 ATHSCL HEART DISEASE OF [place] CORONARY 03/13/2018 BAIBIA, JUN L NUT SIFTER Ot I25.5 ISCHEMIC CARDIOMYOPATHY 03/13/2018 BAIMA, JUN L NUT SIFTER Ot I65.29 OCCLUSION AND STENOSIS OF UNSPECIFIED CA 03/13/2018 BAIMA JUN L NUT SIFTER Ot Z95.810 PRESENCE OF AUTOMATIC (IMPLANTABLE) CARD 03/19/2018 Ot 709.9 SKIN DISORDER NOS 03/19/2018 Ot V72.63 PRE- PROCEDURAL LABORATORY EXAMINATION 03/19/2018 Ot V72.81 EXAM-PRE- OPERATIVE CARDIOVASCULAR 03/19/2018 Ot V74.8 SCREEN- BACTERIAL DIS NEC 03/19/2018 ELA MESSER, ISI Paniagua Ot 709.9 SKIN DISORDER NOS 03/19/2018 ELA MESSER, ISI Paniagua Ot V72.83 EXAM PRE-OPERATIVE NEC 03/19/2018 ELA MESSER, ISI Paniagua Ot V74.8 SCREEN-BACTERIAL DIS NEC 03/19/2018 ELA MESSER, ISI Paniagua Ot 709.9 SKIN DISORDER NOS 03/19/2018 ELA MESSER, ISI Paniagua Ot V72.83 EXAM PRE-OPERATIVE NEC 03/19/2018 ELA MESSER, ISI Paniagua Ot V74.8 SCREEN-BACTERIAL DIS NEC 03/19/2018 ARIAN, JUN L NUT SIFTER Ot 272.4 HYPERLIPIDEMIA NEC/NOS 03/19/2018 ARIAN, JUN L NUT SIFTER Ot 401.9 HYPERTENSION NOS 03/19/2018 ARIAN, JUN L NUT SIFTER Ot 414.00 CORON ATHEROSCLER NOS TYPE VESSEL, NATIV 03/19/2018 ARIAN JUN L NUT SIFTER Ot V45.02 AUTO IMPLANTABLE CARDIAC DEFIBRILLATOR I 03/19/2018 ANAIS MESSER FACC, ALI FACP CCDS Ot I25.5 ISCHEMIC CARDIOMYOPATHY 03/19/2018 ELA MESSER, ISI Paniagua Ot Z01.818 ENCOUNTER FOR OTHER PREPROCEDURAL EXAMIN 03/19/2018 JARED MESSER, FLOR Hernandez Ot G40.909 EPILEPSY, UNSP, NOT INTRACTABLE, WITHOUT 03/19/2018 BAIMA, JUN L NUT SIFTER Ot E78.4 OTHER HYPERLIPIDEMIA 03/19/2018 BAIMA, JUN L NUT SIFTER Ot I10 ESSENTIAL (PRIMARY) HYPERTENSION 03/19/2018 BAIJUN AMEZQUITA NUT SIFTER Ot 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 03/19/2018 JUN DON NUT SIFTER Ot I25.10 ATHSCL HEART DISEASE OF [place] CORONARY 03/19/2018 MATEOJUN AMEZQUITA NUT SIFTER Ot I25.5 ISCHEMIC CARDIOMYOPATHY 03/19/2018 MATEOJUN AMEZQUITA NUT SIFTER Ot I65.29 OCCLUSION AND STENOSIS OF UNSPECIFIED CA 03/19/2018 JUN DON NUT SIFTER Ot Z95.810 PRESENCE OF AUTOMATIC (IMPLANTABLE) CARD 03/19/2018 ISI MAHMOOD MD Ot 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 03/19/2018 ISI MAHMOOD MD Ot E78.5 HYPERLIPIDEMIA, UNSPECIFIED 03/19/2018 ISI MAHMOOD MD Ot I10 ESSENTIAL (PRIMARY) HYPERTENSION 03/19/2018 ISI MAHMOOD MD M Ot I25.10 ATHSCL HEART DISEASE OF [place] CORONARY 03/19/2018 ISI MAHMOOD MD Ot I25.5 ISCHEMIC CARDIOMYOPATHY 03/19/2018 ISI MAHMOOD MD Ot 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 03/19/2018 ISI MAHMOOD MD M Ot Z11.2 ENCOUNTER FOR SCREENING FOR OTHER BACTER 03/19/2018 ISI MAHMOOD MD Ot Z87.891 PERSONAL HISTORY OF NICOTINE DEPENDENCE 03/19/2018 ISI MAHMOOD MD M Ot Z95.810 PRESENCE OF AUTOMATIC (IMPLANTABLE) CARD 03/21/2018 ISI MAHMOOD MD Ot 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 03/21/2018 ISI MAHMOOD MD Ot E78.5 HYPERLIPIDEMIA, UNSPECIFIED 03/21/2018 ISI MAHMOOD MD M Ot I10 ESSENTIAL (PRIMARY) HYPERTENSION 03/21/2018 ISI MAHMOOD MD M Ot I25.10 ATHSCL HEART DISEASE OF [place] CORONARY 03/21/2018 ISI MAHMOOD MD Ot I25.5 ISCHEMIC CARDIOMYOPATHY 03/21/2018 ISI MAHMOOD MD M Ot 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 03/21/2018 ISI MAHMOOD MD M Ot Z11.2 ENCOUNTER FOR SCREENING FOR OTHER BACTER 03/21/2018 ISI MAHMOOD MD Ot Z87.891 PERSONAL HISTORY OF NICOTINE DEPENDENCE 03/21/2018 KEILA MAHMOOD MDVIER M Ot Z95.810 PRESENCE OF AUTOMATIC (IMPLANTABLE) CARD 03/21/2018 Ot 709.9 SKIN DISORDER NOS 03/21/2018 Ot V72.63 PRE- PROCEDURAL LABORATORY EXAMINATION 03/21/2018 Ot V72.81 EXAM-PRE- OPERATIVE CARDIOVASCULAR 03/21/2018 Ot V74.8 SCREEN- BACTERIAL DIS NEC 03/21/2018 ELA MESSER, IIS Paniagua Ot 709.9 SKIN DISORDER NOS 03/21/2018 ELA MESSER, ISI Paniagua Ot V72.83 EXAM PRE-OPERATIVE NEC 03/21/2018 ELA MESSER, ISI Pani[place] Ot V74.8 SCREEN-BACTERIAL DIS NEC 03/21/2018 ELA MESSER, ISI [place] Ot 709.9 SKIN DISORDER NOS 03/21/2018 ELA MESSER, ISI [place] Ot V72.83 EXAM PRE-OPERATIVE NEC 03/21/2018 ELA MESSER, ISI [place] Ot V74.8 SCREEN-BACTERIAL DIS NEC 03/21/2018 ARIAN JUN L NUT SIFTER Ot 272.4 HYPERLIPIDEMIA NEC/NOS 03/21/2018 MATEOMA JUN L NUT SIFTER Ot 401.9 HYPERTENSION NOS 03/21/2018 BAIMA, JUN L NUT SIFTER Ot 414.00 CORON ATHEROSCLER NOS TYPE VESSEL, NATIV 03/21/2018 ARIAN JUN L NUT SIFTER Ot V45.02 AUTO IMPLANTABLE CARDIAC DEFIBRILLATOR I 03/21/2018 ANAIS MESSER FACC, MARGRET FACP CCDS Ot I25.5 ISCHEMIC CARDIOMYOPATHY 03/21/2018 ELA MESSER, ISI [place] Ot Z01.818 ENCOUNTER FOR OTHER PREPROCEDURAL EXAMIN 03/21/2018 JARED MESSER, FLOR Hernandez Ot G40.909 EPILEPSY, UNSP, NOT INTRACTABLE, WITHOUT 03/21/2018 BAIMA JUN L NUT SIFTER Ot E78.4 OTHER HYPERLIPIDEMIA 03/21/2018 BAIMA, JUN L NUT SIFTER Ot I10 ESSENTIAL (PRIMARY) HYPERTENSION 03/21/2018 BAIMA, JUN L NUT SIFTER Ot 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 03/21/2018 MATEOMA JUN L NUT SIFTER Ot I25.10 ATHSCL HEART DISEASE OF [place] CORONARY 03/21/2018 ARIAN JUN L NUT SIFTER Ot I25.5 ISCHEMIC CARDIOMYOPATHY 03/21/2018 ARIAN JUN L NUT SIFTER Ot I65.29 OCCLUSION AND STENOSIS OF UNSPECIFIED CA 03/21/2018 BAIMA, JUN L NUT SIFTER Ot Z95.810 PRESENCE OF AUTOMATIC (IMPLANTABLE) CARD 03/26/2018 BAIMA, JUN L NUT SIFTER Ot E78.4 OTHER HYPERLIPIDEMIA 03/26/2018 BAIMA, JUN L NUT SIFTER Ot I10 ESSENTIAL (PRIMARY) HYPERTENSION 03/26/2018 BAIMA, JUN L NUT SIFTER Ot 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 03/26/2018 BAIMA, JUN L NUT SIFTER Ot I25.10 ATHSCL HEART DISEASE OF [place] CORONARY 03/26/2018 BAIMA, JUN L NUT SIFTER Ot I25.5 ISCHEMIC CARDIOMYOPATHY 03/26/2018 BAIMA, JUN L NUT SIFTER Ot I65.29 OCCLUSION AND STENOSIS OF UNSPECIFIED CA 03/26/2018 BAIMA, JUN L NUT SIFTER Ot Z95.810 PRESENCE OF AUTOMATIC (IMPLANTABLE) CARD 03/27/2018 BAIMA, JUN L NUT SIFTER Ot E78.5 HYPERLIPIDEMIA, UNSPECIFIED 03/27/2018 BAIMA, JUN L NUT SIFTER Ot I10 ESSENTIAL (PRIMARY) HYPERTENSION 03/27/2018 BAIMA, JUN L NUT SIFTER Ot I25.10 ATHSCL HEART DISEASE OF [place] CORONARY 03/27/2018 BAIMA, JUN L NUT SIFTER Ot I25.5 ISCHEMIC CARDIOMYOPATHY 03/27/2018 BAIMA, JUN L NUT SIFTER Ot I34.0 NONRHEUMATIC MITRAL (VALVE) INSUFFICIENC 04/02/2018 BAIMA, JUN L NUT SIFTER Ot E78.4 OTHER HYPERLIPIDEMIA 04/02/2018 BAIMA, JUN L NUT SIFTER Ot I10 ESSENTIAL (PRIMARY) HYPERTENSION 04/02/2018 BAIMA, JUN L NUT SIFTER Ot 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 04/02/2018 BAIMA, JUN L NUT SIFTER Ot I25.10 ATHSCL HEART DISEASE OF [place] CORONARY 04/02/2018 BAIMA, JUN L NUT SIFTER Ot I25.5 ISCHEMIC CARDIOMYOPATHY 04/02/2018 BAIMA, JUN L NUT SIFTER Ot I65.29 OCCLUSION AND STENOSIS OF UNSPECIFIED CA 04/02/2018 BAIMA, JUN L NUT SIFTER Ot Z95.810 PRESENCE OF AUTOMATIC (IMPLANTABLE) CARD 04/14/2018 BAIMA, JUN L NUT SIFTER Ot E78.5 HYPERLIPIDEMIA, UNSPECIFIED 04/14/2018 JUN DON NUT SIFTER Ot I10 ESSENTIAL (PRIMARY) HYPERTENSION 04/14/2018 JUN DON L NUT SIFTER Ot I25.10 ATHSCL HEART DISEASE OF [place] CORONARY 04/14/2018 JUN DON L NUT SIFTER Ot I25.5 ISCHEMIC CARDIOMYOPATHY 04/14/2018 JUN DON L NUT SIFTER Ot I34.0 NONRHEUMATIC MITRAL (VALVE) INSUFFICIENC 04/16/2018 JUN DON NUT SIFTER Ot E78.5 HYPERLIPIDEMIA, UNSPECIFIED 04/16/2018 JUN DON L NUT SIFTER Ot I10 ESSENTIAL (PRIMARY) HYPERTENSION 04/16/2018 JUN DON NUT SIFTER Ot I25.10 ATHSCL HEART DISEASE OF [place] CORONARY 04/16/2018 JUN DON NUT SIFTER Ot I25.5 ISCHEMIC CARDIOMYOPATHY 04/16/2018 JUN DON NUT SIFTER Ot I34.0 NONRHEUMATIC MITRAL (VALVE) INSUFFICIENC Procedures There is no data. Results Test Result Range Methicillin resistant Staphylococcus aureus (MRSA) screening culture - 10:12 Methicillin resistant Staphylococcus aureus (MRSA) screening culture NEG NRG Complete blood count (CBC) with automated white blood cell (WBC) differential - 01/21/17 15:08 Blood leukocytes automated count (number/volume) 8.1 10*3/uL 4.3-11.0 Blood erythrocytes automated count (number/volume) 5.00 10*6/uL 4.35-5.85 Venous blood hemoglobin measurement (mass/volume) 14.8 g/dL 13.3-17.7 Blood hematocrit (volume fraction) 43 % 40-54 Automated erythrocyte mean corpuscular volume 85 [foz_us] 80-99 Automated erythrocyte mean corpuscular hemoglobin (mass per erythrocyte) 30 pg 25-34 Automated erythrocyte mean corpuscular hemoglobin concentration measurement ( mass/volume) 35 g/dL 32-36 Automated erythrocyte distribution width ratio 13.3 % 10.0-14.5 Automated blood platelet count (count/volume) 180 10*3/uL 130-400 Automated blood platelet mean volume measurement 10.3 [foz_us] 7.4-10.4 Automated blood neutrophils/100 leukocytes 65 % 42-75 Automated blood lymphocytes/100 leukocytes 27 % 12-44 Blood monocytes/100 leukocytes 5 % 0-12 Automated blood eosinophils/100 leukocytes 3 % 0-10 Automated blood basophils/100 leukocytes 0 % 0-10 Blood neutrophils automated count (number/volume) 5.3 10*3 1.8-7.8 Blood lymphocytes automated count (number/volume) 2.2 10*3 1.0-4.0 Blood monocytes automated count (number/volume) 0.4 10*3 0.0-1.0 Automated eosinophil count 0.2 10*3/uL 0.0-0.3 Automated blood basophil count (count/volume) 0.0 10*3/uL 0.0-0.1 Capillary blood glucose measurement by glucometer (mass/volume) - 01/21/17 15: 08 Capillary blood glucose measurement by glucometer (mass/volume) 164 mg/dL 70-110 PT panel in platelet poor plasma by coagulation assay - 01/21/17 15:08 Prothrombin time (PT) in platelet poor plasma by coagulation assay 13.5 s 12.2-14.7 INR in platelet poor plasma or blood by coagulation assay 1.1 0.8-1.4 Activated partial thromboplastin time (aPTT) in platelet poor plasma bycoagulation assay - 01/21/17 15:08 Activated partial thromboplastin time (aPTT) in platelet poor plasma bycoagulation assay 28 s 24-35 Comprehensive metabolic panel - 01/21/17 15:08 Serum or plasma sodium measurement (moles/volume) 137 mmol/L 135-145 Serum or plasma potassium measurement (moles/volume) 5.6 mmol/L 3.6-5.0 Serum or plasma chloride measurement (moles/volume) 104 mmol/L 98-107 Carbon dioxide 23 mmol/L 21-32 Serum or plasma anion gap determination (moles/volume) 10 mmol/L 5-14 Serum or plasma urea nitrogen measurement (mass/volume) 27 mg/dL 7-18 Serum or plasma creatinine measurement (mass/volume) 1.02 mg/dL 0.60-1.30 Serum or plasma urea nitrogen/creatinine mass ratio 26 NRG Serum or plasma creatinine measurement with calculation of estimated glomerular filtration rate > NRG Serum or plasma glucose measurement (mass/volume) 137 mg/dL 70-105 Serum or plasma calcium measurement (mass/volume) 8.7 mg/dL 8.5-10.1 Serum or plasma total bilirubin measurement (mass/volume) 0.4 mg/dL 0.1-1.0 Serum or plasma alkaline phosphatase measurement (enzymatic activity/volume) 48 U/L 40-136 Serum or plasma aspartate aminotransferase measurement (enzymatic activity/ volume) 31 U/L 5-34 Serum or plasma alanine aminotransferase measurement (enzymatic activity/volume ) 18 U/L 0-55 Serum or plasma protein measurement (mass/volume) 7.1 g/dL 6.4-8.2 Serum or plasma albumin measurement (mass/volume) 4.1 g/dL 3.2-4.5 Magnesium - 01/21/17 15:08 Magnesium 2.4 mg/dL 1.8-2.4 Serum or plasma troponin i.cardiac measurement (mass/volume) - 01/21/17 15:08 Serum or plasma troponin i.cardiac measurement (mass/volume) < ng/ mL <0.30 Myoglobin, serum - 01/21/17 15:08 Myoglobin, serum 57.4 ng/mL 10.0-92.0 Influenza virus A and B antigen detection - 01/21/17 15:27 FLU RESULT NEGATIVE FOR INFLUENZA A AND B ANTIGENS BY IA NRG Bacterial blood culture - 01/21/17 15:30 Bacterial blood culture NG NRG Complete urinalysis with reflex to culture - 01/21/17 15:46 Urine color determination YELLOW NRG Urine clarity determination SLIGHTLY CLOUDY NRG Urine pH measurement by test strip 5 5-9 Specific gravity of urine by test strip 1.025 1.016- 1.022 Urine protein assay by test strip, semi-quantitative 2+ NEGATIVE Urine glucose detection by automated test strip NEGATIVE NEGATIVE Erythrocytes detection in urine sediment by light microscopy 1+ NEGATIVE Urine ketones detection by automated test strip 1+ NEGATIVE Urine nitrite detection by test strip NEGATIVE NEGATIVE Urine total bilirubin detection by test strip NEGATIVE NEGATIVE Urine urobilinogen measurement by automated test strip (mass/volume) NORMAL NORMAL Urine leukocyte esterase detection by dipstick NEGATIVE NEGATIVE Automated urine sediment erythrocyte count by microscopy (number/high power field) NONE NRG Automated urine sediment leukocyte count by microscopy (number/high power field ) NONE NRG Bacteria detection in urine sediment by light microscopy TRACE NRG Squamous epithelial cells detection in urine sediment by light microscopy 0-2 NRG Crystals detection in urine sediment by light microscopy NONE NRG Casts detection in urine sediment by light microscopy PRESENT NRG Mucus detection in urine sediment by light microscopy NEGATIVE NRG Complete urinalysis with reflex to culture NO NRG Amorphous sediment detection in urine sediment by light microscopy RARE SHIELA URATES NRG Hyaline casts detection in urine sediment by light microscopy 2-5 NRG Methicillin resistant Staphylococcus aureus (MRSA) screening culture - 12:50 Methicillin resistant Staphylococcus aureus (MRSA) screening culture NEG NRG Methicillin resistant Staphylococcus aureus (MRSA) screening culture - 08:35 Methicillin resistant Staphylococcus aureus (MRSA) screening culture NEG NRG Encounters ACCT No. Visit Date/Time Discharge Status Pt. Type Provider Facility Loc./Unit Complaint [id number] 03/14/2015 08:35:39 03/14/2015 23:59:59 CLS Outpatient Cornell Clements [id number] 01/11/2015 15:25:55 01/11/2015 23:59:59 CLS Outpatient Cornell Clements [id number] 12/09/2014 09:23:47 12/09/2014 23:59:59 CLS Outpatient Cornell Clements [id number] 03/21/2018 13:57:00 03/21/2018 23:59:59 CLS Outpatient JUN DON [facility] CARD I25.10 CAD [id number] 03/19/2018 08:20:00 03/19/2018 13:32:00 DIS Outpatient ISI MAHMOOD MD [facility] SKIN LESION,PERSONAL HX SQUAMOUS CELL SKIN CA [id number] 03/04/2018 08:18:00 03/04/2018 23:59:59 CLS Outpatient JUN DON [facility] CARD Z95.810 S/P ICD [id number] 09/25/2017 06:16:00 09/25/2017 12:40:00 DIS Outpatient ISI MAHMOOD MD [facility] SKIN LESION SCALP [id number] 09/18/2017 12:32:00 09/18/2017 14:10:00 DIS Outpatient ISI MAHMOOD MD [facility] PREOP SCALP LESIONS X2 [id number] 05/03/2017 09:49:00 05/03/2017 23:59:59 CLS Outpatient FLOR COLEMAN MD [facility] RT SEIZURE [id number] 01/21/2017 14:56:00 01/21/2017 16:20:00 DIS Emergency OSCAR SUAREZ DO [facility] ER RT SIDE WEAKNESS/POSS STROKE [id number] 10/24/2016 06:00:00 10/24/2016 10:35:00 DIS Outpatient ISI MAHMOOD MD [facility] SKIN LESIONS [id number] 10/19/2016 09:52:00 10/19/2016 10:20:00 DIS Outpatient ISI MAHMOOD MD [facility] PREOP SKIN LESIONS [id number] 01/11/2016 11:11:00 01/11/2016 15:00:00 DIS Outpatient ISI MAHMOOD MD [facility] MULTIPLE LESIONS [id number] 01/06/2016 13:03:00 01/06/2016 23:59:59 CLS Outpatient ISI MAHMOOD MD [facility] PREOP MULTIPLE LESIONS [id number] 10/18/2015 13:08:00 10/18/2015 23:59:59 CLS Outpatient MARGRET MANZO MD, FACC, FACP CCDS [facility] ICD ARTERI ISCHMIC [id number] 10/18/2015 13:02:00 10/18/2015 22:00:00 DIS Outpatient MARGRET MANZO MD, FACC, FACP CCDS [facility] CATH ICD AT ESTEPHANIE ISCHEMIC CM [id number] 05/12/2015 08:00:00 05/12/2015 23:59:59 CLS Outpatient JUN DON [facility] CARD CAD,HTN,HLP [id number] 12/23/2014 10:00:00 12/23/2014 16:40:00 DIS Outpatient ISI MAHMOOD MD [facility] SKIN LESION [id number] 12/21/2014 13:08:00 12/21/2014 23:59:59 CLS Outpatient ISI MAHMOOD MD [facility] PREOP SKIN LESION [id number] 07/23/2013 09:22:00 07/23/2013 14:37:00 DIS Outpatient ISI MAHMOOD MD [facility] SKIN LESION [id number] 06/25/2013 08:07:00 06/25/2013 23:59:59 CLS Outpatient ISI MAHMOOD MD [facility] PREOP SKIN LESION [id number] 05/16/2018 10:15:00 PEN Preadmit ISI MAHMOOD MD [facility] SKIN LESIONS [id number] 01/08/2013 18:14:00 Document Registration [id number] 01/08/2013 08:26:00 Document Registration [id number] 01/06/2013 08:00:00 Document Registration [id number] 12/20/2011 07:13:00 Document Registration [id number] 06/05/2011 05:36:00 Document Registration [id number] 06/01/2011 08:16:00 Document Registration [id number] 11/23/2010 13:01:00 Document Registration [id number] 10/05/2010 12:54:00 Document Registration [id number] 09/22/2010 08:57:00 Document Registration [id number] 07/06/2010 13:30:00 Document Registration [id number] 04/06/2010 13:02:00 Document Registration [id number] 01/11/2010 09:19:00 Document Registration [id number] 01/05/2010 12:55:00 Document Registration [id number] 10/06/2009 13:01:00 Document Registration [id number] 07/07/2009 12:50:00 Document Registration [id number] 05/24/2008 09:36:00 Document Registration
[2018-05-16] MEDS ORDERED: SEVOFLURANE (ULTANE) 15 ML INHAL SOLN ONE ×3 (10:13→11:11)
[2018-05-16] MEDS ORDERED: DEXAMETHASONE 10 MG/ML (DECADRON) 1 ML VIAL ONE (10:14)
[2018-05-16] MEDS ORDERED: TRAM50TA2 PO (10:15)
--- NOTE | 2018-05-16 10:16 | Discharge Inst-Simple/Standard ---
Discharge Inst-Standard Discharge Medications New, Converted or Re-Newed RX: RX on Chart Patient Instructions/Follow Up Plan of Care/Instructions/FU: Follow-up with my nurse in 10 days for suture Activity as Tolerated: Yes Discharge Diet: No Restrictions ISI MAHMOOD MD May 16, 2018 10:16 am
--- NOTE | 2018-05-16 10:44 | Operative Report ---
Operative Report Date of Procedure/Surgery May 16, 2018 Surgeon (s) ISI MAHMOOD MD Home Decorator (s): N/A Post-Operative Diagnosis Same Procedure Performed 1. Excision of lesion right preauricular region *1 (5 x 3 cm) 2. Excision of lesion right preauricular-# 2(4 x 2 cm) 3. 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 He presented with a total of 3 lesions, 2 involving the right preauricular region and a third lesion over the right postauricular region, having the appearance of skin cancers. He was offered excision of all these. Informed consent was obtained after reviewing the procedures in detail. Description of procedures: He was placed supine on the operating table and general anesthesia induced. Ancef was administered intravenously as prophylaxis against wound infection 1. Excision of preauricular lesions 2: After adequate preparation, preemptive analgesia was established using 0.5 percent or cane with epinephrine. The first lesion located over the preauricular region, in a superior orientation was excised by making an incision 5 cm in length by 3 cm in width. It was oriented with silk sutures and sent for formal histologic examination. The second lesion was managed by using an elliptical incision, 4 cm in length by 2 cm in width. Both of these were closed using 4-0 Vicryl for the subcutaneous tissue and 6-0 nylon for skin, in an interrupted fashion. 2. Excision of lesion over the right postauricular region: A similar excision was performed by making an incision 4 cm in length by 2 cm in width. It was closed in a similar fashion. He tolerated the procedures well, was extubated in the operating room and taken to the recovery room in a stable condition. Findings of the Procedure See op report Allergies and Home Medications Allergies Coded Allergies: No Known Drug Allergies (Unverified , 09/18/17) Home Medications Carvedilol 6.25 Mg Tablet, 6.25 MG PO BID, (Reported) Divalproex Sodium 250 Mg Tablet.dr, 250 MG PO QID, (Reported) TAKE ONE TABLET EVERY MORNING, NOON, 6PM AND BEDTIME Divalproex Sodium 500 Mg Tablet.dr, 500 MG PO BID, (Reported) Donepezil HCl 5 Mg Tablet, 5 MG PO DAILY, (Reported) Ferrous Sulfate 325 Mg Tablet, 325 MG PO DAILY, (Reported) Hydralazine HCl 10 Mg Tablet, 10 MG PO DAILY, (Reported) Hydrocodone Bit/Acetaminophen 1 Tab Tab, 1-2 TAB PO 4-6HR PRN for PAIN Prescribed by: ISI MAHMOOD on 03/19/18 1120 Lisinopril 5 Mg Tablet, 5 MG PO DAILY, (Reported) Simvastatin 20 Mg Tablet, 20 MG PO DAILY, (Reported) Tramadol HCl 50 Mg Tablet, 50 MG PO Q12H Prescribed by: ISI MAHMOOD on 05/16/18 1015 Trazodone HCl 50 Mg Tablet, 50 MG PO HS, (Reported) Patient Home Medication List Home Medication List Reviewed: Yes ISI MAHMOOD MD May 16, 2018 10:44 am
[2018-05-16 11:15] VITALS: BP 134/78
[2018-05-16] MEDS ORDERED: HYDROmorphone 1 MG/ML (DILAUDID) 1 ML SYRINGE IV PRN (11:30)
[2018-05-16] MEDS ORDERED: ONDANSETRON 4 MG/2 ML (SDV) Z0FRAN IVP PRN (11:30)
[2018-05-16] MEDS ORDERED: PHENYLEPHRINE 100 MCG/ML 10 ML (ANESTHESIA) SYR ONE (11:32)
[2018-05-16 12:45] VITALS: BP 128/73
[2018-05-16 13:15] VITALS: BP 140/83
[2018-05-16 13:50] VITALS: BP 140/83
== END 2018-05-16 13:55 | disposition home or self-care (01) ==
LOC: SDC 09:10
PROVIDERS: ATTEND Surgery
DX: C44.329 Squamous cell carcinoma of skin of other parts of face (principal); C44.319 Basal cell carcinoma of skin of other parts of face; C44.41 Basal cell carcinoma of skin of scalp and neck; I25.10 Atherosclerotic heart disease of native coronary artery without angina pectoris; I10 Essential (primary) hypertension; I42.9 Cardiomyopathy, unspecified; R56.9 Unspecified convulsions; Z95.5 Presence of coronary angioplasty implant and graft; Z95.810 Presence of automatic (implantable) cardiac defibrillator; Z87.891 Personal history of nicotine dependence; Z79.899 Other long term (current) drug therapy
CPT/HCPCS: 87081; 88305

== ENCOUNTER 2018-12-09 16:18 | Inpatient (IN) | payer MEDICARE ==
[~2018-12-09] VITALS: Ht 170.2 cm; Wt 90.1 kg
[~2018-12-09 16:18] MED LIST changes: +DIVA-74 PO; +DIVA-76 PO; -DIVA250T4 PO; -DIVA500T7 PO; +TRAZ-189 PO; -TRAZ-28 PO
--- OUTSIDE RECORDS SUMMARY | 2018-12-09 16:24 | XMS REPORT | Clinical Summary ---
Author Author [facility] Organization [facility] Address Unknown Phone Unavailable Care Team Providers Care [employer]ionics Systems Integration Specialist Name Role Phone Jaxon Estrella MD PCP Source Comments Some departments are not documenting in the electronic medical record. If you do not see the information that you expected, contact Release of Information in the Health Information Management department at [phone] for further assistance in locating additional records.[facility] Allergies No Known Allergies Medications End Date Status Medication Sig Dispensed Refills Start Date Active ferrous sulfate (FEOSOL, Take 325 mg 0 FEROSUL) 325 mg (65 mg by mouth iron) tablet daily. Take on an empty stomach at least 1 hour before or 2 hours after food. Active lisinopril (PRINIVIL; Take 5 mg by 0 ZESTRIL) 5 mg tablet mouth daily. Active simvastatin (ZOCOR) 20 mg Take 20 mg by 0 tablet mouth at bedtime daily. Active traZODone (DESYREL) 50 mg Take 50 mg by 0 tablet mouth at bedtime as needed for Sleep. Active carvedilol (COREG) 6.25 Take 6.25 mg 0 mg tablet by mouth twice daily with meals. Take with food. Active hydrALAZINE (APRESOLINE) Take 10 mg by 0 10 mg tablet mouth daily. Active clopiDOGrel (PLAVIX) 75 Take 75 mg by 0 mg tablet mouth daily. Active divalproex (DEPAKOTE EC) Take by [address] tablet mouth. Take with food. Active donepezil (ARICEPT) 10 mg Take by 0 tablet mouth. Active FOLIC Take 1 Tab by 0 ACID/MULTIVIT-MIN/LUTEIN mouth daily. (CENTRUM SILVER PO) Active aspirin 81 mg chewable Chew 81 mg by 0 tablet mouth daily. Take with food. Active fish oil- omega 3-DHA/EPA Take 2 Caps 0 300/1,000 mg capsule by mouth daily. Active fluorouracil (EFUDEX) 5 % Apply 0 topical cream topically to affected area twice daily. x3 weeks Active donepezil (ARICEPT) 5 mg Take by 0 tablet mouth. Active Problems Problem Noted Date Encephalopathy acute 01/22/2017 H/O traumatic brain injury 01/22/2017 Acute respiratory failure with hypercapnia 01/22/2017 Chronic systolic heart failure 01/22/2017 Seizure 01/21/2017 Social History Date Tobacco Use Types Packs/Day Years Used Never Smoker Sex Assigned at Date Recorded Not on file Industry Job Start Date Occupation Not on file Not on file Not on file Travel End Travel History Travel Start No recent travel history available. Last Filed Vital Signs Time Taken Vital Sign Reading 01/24/2017 10:27 AM [employer] Blood Pressure 129/82 01/24/2017 12:24 PM [employer] Pulse 62 01/24/2017 10:27 AM [employer] Temperature 36.5 C (97.7 F) - Respiratory Rate - 01/24/2017 10:27 AM [employer] Oxygen Saturation 97% - Inhaled Oxygen - Concentration 01/21/2017 8:00 PM [employer] Weight 91.5 kg (201 lb 11.5 oz) 01/21/2017 8:00 PM [employer] Height 177.8 cm (5' 10") 01/21/2017 8:00 PM [employer] Body Mass Index 28.94 Plan of Treatment Health Maintenance Due Date Last Done Comments PHYSICAL (COMPREHENSIVE) 1947 EXAM DTAP/TDAP VACCINES (1 - 1958 Tdap) SHINGLES RECOMBINANT 1990 VACCINE (1 of 2) PNEUMONIA (PCV13/PPSV23) 2005 VACCINES (1 of 2 - PCV13) INFLUENZA VACCINE 07/02/2018 Results Not on filefrom Last 3 Months Insurance Payer Benefit Subscriber ID Type Phone Address Plan / Group MEDICARE MEDICARE xxxxxxxxxx Medicare PART A AND B BCBS MIRELA BCBS xxxxxxxxxxxx Medicare SUPPLEMENT Advance Directives Patient has advance care planning documents, and code status on file. For more information, please contact: [facility] [address] [place] [address] Date Inactivated Comments Code Status Date Activated 01/24/2017 6:41 PM Full Code 01/21/2017 4:45 PM Provider has discussed Code Status No, more discussion w/Patient or Family? needed
--- OUTSIDE RECORDS SUMMARY | 2018-12-09 16:26 | XMS REPORT | Continuity of Care Document ---
Author Author [facility] Organization [facility] Address Unknown Phone Unavailable Allergies Active Description Code Type Severity Reaction Onset Reported/Identified Relationship to Patient Clinical Status Yes NKANo Known Allergies NKA Miscellaneous Allergy Mild N/A 01/18/2006 Yes No Known Drug Allergies [id number] Drug Allergy Unknown N/A 09/18/2017 Medications There [...] [place] Ot V74.8 06/02/2015 BAIMA, JUN L HAIRCUTTER Ot 272.4 06/02/2015 BAIMA, JUN L HAIRCUTTER Ot 401.9 06/02/2015 BAIMA, JUN L HAIRCUTTER Ot 414.00 06/02/2015 BAIMA, JUN L HAIRCUTTER Ot V45.02 06/09/2015 BAIMA, JUN L HAIRCUTTER Ot 272.4 06/09/2015 BAIMA, JUN L HAIRCUTTER Ot 401.9 06/09/2015 BAIMA, JUN L HAIRCUTTER Ot 414.00 06/09/2015 BAIMA, JUN L HAIRCUTTER Ot V45.02 10/18/2015 ANAIS MESSER FACC, ALI FACP CCDS Ot E78.5 HYPERLIPIDEMIA, UNSPECIFIED 10/18/2015 ANAIS MESSER FACC, ALI FACP CCDS Ot G40.909 EPILEPSY, UNSP, NOT INTRACTABLE, WITHOUT 10/18/2015 ANAIS MESSER FACC, ALI FACP CCDS Ot I12.9 HYPERTENSIVE CHRONIC KIDNEY DISEASE W ST 10/18/2015 ANAIS MESSER FACChristelle, ALI FACP CCDS Ot I25.10 ATHSCL HEART DISEASE OF [place] CORONARY 10/18/2015 ANAIS MESSER FACC, ALI FACP CCDS Ot I25.5 ISCHEMIC CARDIOMYOPATHY 10/18/2015 ANAIS MESSER FACC, ALI FACP CCDS Ot N18.9 CHRONIC KIDNEY DISEASE, UNSPECIFIED 10/18/2015 ANAIS MESSER FACC, ALI FACP CCDS Ot Z45.02 ENCNTR FOR ADJUST AND MGMT OF AUTOMATIC 10/18/2015 ANAIS MESSER FACC, ALI FACP CCDS Ot Z79.899 OTHER FLOOR COVERING PRINTER (CURRENT) DRUG THERAPY 10/18/2015 ANAIS MESSER FACC, [...] [place] Ot V74.8 01/11/2016 JUN DON L HAIRCUTTER Ot 272.4 01/11/2016 BAIJUN AMEZQUITA L HAIRCUTTER Ot 401.9 01/11/2016 BAIJUN AMEZQUITA L HAIRCUTTER Ot 414.00 01/11/2016 BAIJUN AMEZQUITA L HAIRCUTTER Ot V45.02 01/11/2016 ANAIS MESSER FACC, ALI [...] MD Ot I25.10 ATHSCL HEART DISEASE OF [place] CORONARY 01/11/2016 ELA MESSER, ISI [place] Ot Z11.2 ENCOUNTER FOR SCREENING FOR [...] MD Ot I25.10 ATHSCL HEART DISEASE OF [place] CORONARY 09/10/2016 ISI MAHMOOD MD Ot Z11.2 [...] DO Ot I25.10 ATHSCL HEART DISEASE OF [place] CORONARY 01/21/2017 OSCAR SUAREZ DO Ot R29.810 FACIAL WEAKNESS 01/21/2017 OSCAR SUAREZ DO Ot R56.9 UNSPECIFIED CONVULSIONS 01/21/2017 OSCAR SUAREZ DO Ot Z79.899 OTHER SENIOR CARE (CURRENT) DRUG THERAPY 01/21/2017 OSCAR SUAREZ DO Ot Z87.820 PERSONAL HISTORY OF TRAUMATIC BRAIN INJU 01/24/2017 OSCAR SUAREZ DO Ot G81.91 HEMIPLEGIA, UNSPECIFIED AFFECTING RIGHT 01/24/2017 OSCAR SUAREZ DO Ot I25.10 ATHSCL HEART DISEASE OF [place] CORONARY 01/24/2017 OSCAR SUAREZ DO Ot R29.810 FACIAL WEAKNESS 01/24/2017 OSCAR SUAREZ DO Ot R56.9 UNSPECIFIED CONVULSIONS 01/24/2017 OSCAR SUAREZ DO Ot Z79.899 OTHER SENIOR CARE (CURRENT) DRUG THERAPY 01/24/2017 OSCAR SUAREZ DO [...] MD Ot I25.10 ATHSCL HEART DISEASE OF [place] CORONARY 09/25/2017 ISI MAHMOOD MD Ot I25.5 ISCHEMIC CARDIOMYOPATHY 09/25/2017 ISI MAHMOOD MD Ot Z79.02 SENIOR CARE (CURRENT) USE OF ANTITHROMBOTI 09/25/2017 ISI MAHMOOD MD Ot Z79.899 OTHER FLOOR COVERING PRINTER (CURRENT) DRUG THERAPY 09/25/2017 ISI MAHMOOD MD [...] Ot V72.83 EXAM PRE-OPERATIVE NEC 02/27/2018 ELA MESSER, ISI [place] Ot V74.8 SCREEN-BACTERIAL DIS NEC 02/27/2018 BAIMA, JUN L HAIRCUTTER Ot 272.4 HYPERLIPIDEMIA NEC/NOS 02/27/2018 BAIMA, JUN L HAIRCUTTER Ot 401.9 HYPERTENSION NOS 02/27/2018 BAIMA, JUN L HAIRCUTTER Ot 414.00 CORON ATHEROSCLER NOS TYPE VESSEL, NATIV 02/27/2018 BAIMA, JUN L HAIRCUTTER Ot V45.02 AUTO IMPLANTABLE CARDIAC DEFIBRILLATOR I 02/27/2018 ANAIS MESSER FACC, MARGRET CORREIA CCDS Ot I25.5 ISCHEMIC CARDIOMYOPATHY 02/27/2018 ELA MESSER, ISI [place] Ot Z01.818 ENCOUNTER FOR OTHER PREPROCEDURAL EXAMIN 02/27/2018 JARED MESSER, FOLR K Ot G40.909 EPILEPSY, UNSP, NOT INTRACTABLE, WITHOUT 03/05/2018 BAIMA, JUN L HAIRCUTTER Ot E78.4 OTHER HYPERLIPIDEMIA 03/05/2018 BAIMA, JUN L HAIRCUTTER Ot I10 ESSENTIAL (PRIMARY) HYPERTENSION 03/05/2018 BAIMA, JUN L HAIRCUTTER Ot 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 03/05/2018 BAIMA, JUN L HAIRCUTTER Ot I25.10 ATHSCL HEART DISEASE OF [place] CORONARY 03/05/2018 BAIMA, JUN L HAIRCUTTER Ot I25.5 ISCHEMIC CARDIOMYOPATHY 03/05/2018 BAIMA, JUN L HAIRCUTTER Ot I65.29 OCCLUSION AND STENOSIS OF UNSPECIFIED CA 03/05/2018 BAIMA, JUN L HAIRCUTTER Ot Z95.810 PRESENCE OF AUTOMATIC (IMPLANTABLE) CARD 03/05/2018 BAIMA, JUN L HAIRCUTTER Ot E78.4 OTHER HYPERLIPIDEMIA 03/05/2018 BAIMA, JUN L HAIRCUTTER Ot I10 ESSENTIAL (PRIMARY) HYPERTENSION 03/05/2018 BAIMA, JUN L HAIRCUTTER Ot 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 03/05/2018 BAIMA, JUN L HAIRCUTTER Ot I25.10 ATHSCL HEART DISEASE OF [place] CORONARY 03/05/2018 BAIMA, JUN L HAIRCUTTER Ot I25.5 ISCHEMIC CARDIOMYOPATHY 03/05/2018 BAIMA, JUN L HAIRCUTTER Ot I65.29 OCCLUSION AND STENOSIS OF UNSPECIFIED CA 03/05/2018 BAIMA, JUN L HAIRCUTTER Ot Z95.810 PRESENCE OF AUTOMATIC (IMPLANTABLE) CARD [...] SCREEN-BACTERIAL DIS NEC 03/12/2018 BAIMA, JUN L HAIRCUTTER Ot 272.4 HYPERLIPIDEMIA NEC/NOS 03/12/2018 BAIMA, JUN L HAIRCUTTER Ot 401.9 HYPERTENSION NOS 03/12/2018 BAIMA, JUN L HAIRCUTTER Ot 414.00 CORON ATHEROSCLER NOS TYPE VESSEL, NATIV 03/12/2018 BAIMA, JUN L HAIRCUTTER Ot V45.02 AUTO IMPLANTABLE CARDIAC DEFIBRILLATOR I 03/12/2018 ANAIS MESSER FACC, ALI FACP CCDS Ot I25.5 ISCHEMIC CARDIOMYOPATHY 03/12/2018 ELA MESSER, ISI [place] Ot Z01.818 ENCOUNTER FOR OTHER PREPROCEDURAL EXAMIN 03/12/2018 JARED MESSER, FLOR K Ot G40.909 EPILEPSY, UNSP, NOT INTRACTABLE, WITHOUT 03/12/2018 BAIMA, JUN L HAIRCUTTER Ot E78.4 OTHER HYPERLIPIDEMIA 03/12/2018 BAIMA, JUN L HAIRCUTTER Ot I10 ESSENTIAL (PRIMARY) HYPERTENSION 03/12/2018 BAIMA, JUN L HAIRCUTTER Ot 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 03/12/2018 BAIMA, JUN L HAIRCUTTER Ot I25.10 ATHSCL HEART DISEASE OF [place] CORONARY 03/12/2018 BAIBIA JUN L HAIRCUTTER Ot I25.5 ISCHEMIC CARDIOMYOPATHY 03/12/2018 BAIBIA, JUN L HAIRCUTTER Ot I65.29 OCCLUSION AND STENOSIS OF UNSPECIFIED CA 03/12/2018 BAIBIA JUN L HAIRCUTTER Ot Z95.810 PRESENCE OF AUTOMATIC (IMPLANTABLE) CARD [...] SCREEN-BACTERIAL DIS NEC 03/13/2018 BAIMA, JUN L HAIRCUTTER Ot 272.4 HYPERLIPIDEMIA NEC/NOS 03/13/2018 MATEOMA, JUN L HAIRCUTTER Ot 401.9 HYPERTENSION NOS 03/13/2018 ARIAN, JUN L HAIRCUTTER Ot 414.00 CORON ATHEROSCLER NOS TYPE VESSEL, NATIV 03/13/2018 ARIAN JUN L HAIRCUTTER Ot V45.02 AUTO IMPLANTABLE CARDIAC DEFIBRILLATOR I 03/13/2018 ANAIS MESSER FACC, ALI FACP CCDS Ot I25.5 ISCHEMIC CARDIOMYOPATHY 03/13/2018 ELA MESSER, ISI [place] Ot Z01.818 ENCOUNTER FOR OTHER PREPROCEDURAL EXAMIN 03/13/2018 JARED MESSER, FLOR Hernandez Ot G40.909 EPILEPSY, UNSP, NOT INTRACTABLE, WITHOUT 03/13/2018 BAIMA, JUN L HAIRCUTTER Ot E78.4 OTHER HYPERLIPIDEMIA 03/13/2018 BAIMA, JUN L HAIRCUTTER Ot I10 ESSENTIAL (PRIMARY) HYPERTENSION 03/13/2018 BAIMA, JUN L HAIRCUTTER Ot 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 03/13/2018 ARIAN JUN L HAIRCUTTER Ot I25.10 ATHSCL HEART DISEASE OF [place] CORONARY 03/13/2018 BAIBIA, JUN L HAIRCUTTER Ot I25.5 ISCHEMIC CARDIOMYOPATHY 03/13/2018 BAIMA, JUN L HAIRCUTTER Ot I65.29 OCCLUSION AND STENOSIS OF UNSPECIFIED CA 03/13/2018 BAIMA JUN L HAIRCUTTER Ot Z95.810 PRESENCE OF AUTOMATIC (IMPLANTABLE) CARD [...] SCREEN-BACTERIAL DIS NEC 03/19/2018 ARIAN, JUN L HAIRCUTTER Ot 272.4 HYPERLIPIDEMIA NEC/NOS 03/19/2018 ARIAN, JUN L HAIRCUTTER Ot 401.9 HYPERTENSION NOS 03/19/2018 ARIAN, JUN L HAIRCUTTER Ot 414.00 CORON ATHEROSCLER NOS TYPE VESSEL, NATIV 03/19/2018 ARIAN JUN L HAIRCUTTER Ot V45.02 AUTO IMPLANTABLE CARDIAC DEFIBRILLATOR I 03/19/2018 ANAIS MESSER FACC, ALI FACP CCDS Ot I25.5 ISCHEMIC CARDIOMYOPATHY 03/19/2018 ELA MESSER, ISI [place] Ot Z01.818 ENCOUNTER FOR OTHER PREPROCEDURAL EXAMIN 03/19/2018 JARED MESSER, FLOR Hernandez Ot G40.909 EPILEPSY, UNSP, NOT INTRACTABLE, WITHOUT 03/19/2018 BAIMA, JUN L HAIRCUTTER Ot E78.4 OTHER HYPERLIPIDEMIA 03/19/2018 BAIMA, JUN L HAIRCUTTER Ot I10 ESSENTIAL (PRIMARY) HYPERTENSION 03/19/2018 BAIJUN AMEZQUITA HAIRCUTTER Ot 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 03/19/2018 JUN DON HAIRCUTTER Ot I25.10 ATHSCL HEART DISEASE OF [place] CORONARY 03/19/2018 MATEOJUN AMEZQUITA HAIRCUTTER Ot I25.5 ISCHEMIC CARDIOMYOPATHY 03/19/2018 MATEOJUN AMEZQUITA HAIRCUTTER Ot I65.29 OCCLUSION AND STENOSIS OF UNSPECIFIED CA 03/19/2018 JUN DON HAIRCUTTER Ot Z95.810 PRESENCE OF AUTOMATIC (IMPLANTABLE) CARD 03/19/2018 ISI MAHMOOD MD Ot 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 03/19/2018 ISI MAHMOOD MD Ot E78.5 HYPERLIPIDEMIA, UNSPECIFIED 03/19/2018 ISI MAHMOOD MD Ot I10 ESSENTIAL (PRIMARY) HYPERTENSION 03/19/2018 ISI MAHMOOD MD M Ot I25.10 ATHSCL HEART DISEASE OF [place] CORONARY 03/19/2018 ISI MAHMOOD MD Ot I25.5 [...] M Ot I25.10 ATHSCL HEART DISEASE OF [place] CORONARY 03/21/2018 ISI MAHMOOD MD Ot I25.5 ISCHEMIC CARDIOMYOPATHY 03/21/2018 SII MAHMOOD MD M Ot 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 [...] SCREEN- BACTERIAL DIS NEC 03/21/2018 ELA MESSER, ISI [place] [...] SCREEN-BACTERIAL DIS NEC 03/21/2018 ARIAN JUN L HAIRCUTTER Ot 272.4 HYPERLIPIDEMIA NEC/NOS 03/21/2018 MATEOMA JUN L HAIRCUTTER Ot 401.9 HYPERTENSION NOS 03/21/2018 BAIMA, JUN L HAIRCUTTER Ot 414.00 CORON ATHEROSCLER NOS TYPE VESSEL, NATIV 03/21/2018 ARIAN JUN L HAIRCUTTER Ot V45.02 AUTO IMPLANTABLE CARDIAC DEFIBRILLATOR I 03/21/2018 ANAIS MESSER FACC, MARGRET FACP CCDS Ot I25.5 ISCHEMIC CARDIOMYOPATHY 03/21/2018 ELA MESSER, ISI [place] Ot Z01.818 ENCOUNTER FOR OTHER PREPROCEDURAL EXAMIN 03/21/2018 JARED MESSER, FLOR Hernandez Ot G40.909 EPILEPSY, UNSP, NOT INTRACTABLE, WITHOUT 03/21/2018 BAIMA JUN L HAIRCUTTER Ot E78.4 OTHER HYPERLIPIDEMIA 03/21/2018 BAIMA, JUN L HAIRCUTTER Ot I10 ESSENTIAL (PRIMARY) HYPERTENSION 03/21/2018 BAIMA, JUN L HAIRCUTTER Ot 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 03/21/2018 MATEOMA JUN L HAIRCUTTER Ot I25.10 ATHSCL HEART DISEASE OF [place] CORONARY 03/21/2018 ARIAN JUN L HAIRCUTTER Ot I25.5 ISCHEMIC CARDIOMYOPATHY 03/21/2018 ARIAN JUN L HAIRCUTTER Ot I65.29 OCCLUSION AND STENOSIS OF UNSPECIFIED CA 03/21/2018 BAIMA, JUN L HAIRCUTTER Ot Z95.810 PRESENCE OF AUTOMATIC (IMPLANTABLE) CARD 03/26/2018 BAIMA, JUN L HAIRCUTTER Ot E78.4 OTHER HYPERLIPIDEMIA 03/26/2018 BAIMA, JUN L HAIRCUTTER Ot I10 ESSENTIAL (PRIMARY) HYPERTENSION 03/26/2018 BAIMA, JUN L HAIRCUTTER Ot 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 03/26/2018 BAIMA, JUN L HAIRCUTTER Ot I25.10 ATHSCL HEART DISEASE OF [place] CORONARY 03/26/2018 BAIMA, JUN L HAIRCUTTER Ot I25.5 ISCHEMIC CARDIOMYOPATHY 03/26/2018 BAIMA, JUN L HAIRCUTTER Ot I65.29 OCCLUSION AND STENOSIS OF UNSPECIFIED CA 03/26/2018 BAIMA, JUN L HAIRCUTTER Ot Z95.810 PRESENCE OF AUTOMATIC (IMPLANTABLE) CARD 03/27/2018 BAIMA, JUN L HAIRCUTTER Ot E78.5 HYPERLIPIDEMIA, UNSPECIFIED 03/27/2018 BAIMA, JUN L HAIRCUTTER Ot I10 ESSENTIAL (PRIMARY) HYPERTENSION 03/27/2018 BAIMA, JUN L HAIRCUTTER Ot I25.10 ATHSCL HEART DISEASE OF [place] CORONARY 03/27/2018 BAIMA, JUN L HAIRCUTTER Ot I25.5 ISCHEMIC CARDIOMYOPATHY 03/27/2018 BAIMA, JUN L HAIRCUTTER Ot I34.0 NONRHEUMATIC MITRAL (VALVE) INSUFFICIENC 04/02/2018 BAIMA, JUN L HAIRCUTTER Ot E78.4 OTHER HYPERLIPIDEMIA 04/02/2018 BAIMA, JUN L HAIRCUTTER Ot I10 ESSENTIAL (PRIMARY) HYPERTENSION 04/02/2018 BAIMA, JUN L HAIRCUTTER Ot 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 04/02/2018 BAIMA, JUN L HAIRCUTTER Ot I25.10 ATHSCL HEART DISEASE OF [place] CORONARY 04/02/2018 BAIMA, JUN L HAIRCUTTER Ot I25.5 ISCHEMIC CARDIOMYOPATHY 04/02/2018 BAIMA, JUN L HAIRCUTTER Ot I65.29 OCCLUSION AND STENOSIS OF UNSPECIFIED CA 04/02/2018 BAIMA, JUN L HAIRCUTTER Ot Z95.810 PRESENCE OF AUTOMATIC (IMPLANTABLE) CARD 04/14/2018 BAIMA, JUN L HAIRCUTTER Ot E78.5 HYPERLIPIDEMIA, UNSPECIFIED 04/14/2018 JUN DON L HAIRCUTTER Ot I10 ESSENTIAL (PRIMARY) HYPERTENSION 04/14/2018 JUN DON L HAIRCUTTER Ot I25.10 ATHSCL HEART DISEASE OF [place] CORONARY 04/14/2018 JUN DON L HAIRCUTTER Ot I25.5 ISCHEMIC CARDIOMYOPATHY 04/14/2018 JUN DON L HAIRCUTTER Ot I34.0 NONRHEUMATIC MITRAL (VALVE) INSUFFICIENC 04/16/2018 JUN DON HAIRCUTTER Ot E78.5 HYPERLIPIDEMIA, UNSPECIFIED 04/16/2018 JUN DON L HAIRCUTTER Ot I10 ESSENTIAL (PRIMARY) HYPERTENSION 04/16/2018 JUN DON L HAIRCUTTER Ot I25.10 ATHSCL HEART DISEASE OF [place] CORONARY 04/16/2018 JUN DON HAIRCUTTER Ot I25.5 ISCHEMIC CARDIOMYOPATHY 04/16/2018 JUN DON L HAIRCUTTER Ot I34.0 NONRHEUMATIC MITRAL (VALVE) INSUFFICIENC 05/15/2018 ELA MESSER, ISI Paniagua Ot L98.9 DISORDER OF THE SKIN AND SUBCUTANEOUS TI 05/15/2018 ISI MAHMOOD MD Ot Z01.818 ENCOUNTER FOR OTHER PREPROCEDURAL EXAMIN 05/16/2018 ELA MESSER, ISI [place]ani[place] Ot C44.319 BASAL CELL CARCINOMA OF SKIN OF OTHER PA 05/16/2018 ISI MAHMOOD MD Ot C44.329 SQUAMOUS CELL CARCINOMA OF SKIN OF OTHER 05/16/2018 ISI MAHMOOD MD Ot C44.41 BASAL CELL CARCINOMA OF SKIN OF [place] AN 05/16/2018 ISI MAHMOOD MD Ot I10 ESSENTIAL (PRIMARY) HYPERTENSION 05/16/2018 ISI MAHMOOD MD Ot I25.10 ATHSCL HEART DISEASE OF [place] CORONARY 05/16/2018 ISI MAHMOOD MD Ot I42.9 CARDIOMYOPATHY, UNSPECIFIED 05/16/2018 ISI MAHMOOD MD Ot R56.9 UNSPECIFIED CONVULSIONS 05/16/2018 ISI MAHMOOD MD Ot Z79.899 OTHER FLOOR COVERING PRINTER (CURRENT) DRUG THERAPY 05/16/2018 ISI MAHMOOD MD Ot Z87.891 PERSONAL HISTORY OF NICOTINE DEPENDENCE 05/16/2018 ISI MAHMOOD MD Ot Z95.5 PRESENCE OF CORONARY ANGIOPLASTY IMPLANT 05/16/2018 ISI MAHMOOD MD Ot Z95.810 PRESENCE OF AUTOMATIC (IMPLANTABLE) CARD 05/20/2018 ISI MAHMOOD MD Ot L98.9 DISORDER OF THE SKIN AND SUBCUTANEOUS TI 05/20/2018 ISI MAHMOOD MD Ot Z01.818 ENCOUNTER FOR OTHER PREPROCEDURAL EXAMIN 05/20/2018 ISI MAHMOOD MD Ot C44.319 BASAL CELL CARCINOMA OF SKIN OF OTHER PA 05/20/2018 ISI MAHMOOD MD Ot C44.329 SQUAMOUS CELL CARCINOMA OF SKIN OF OTHER 05/20/2018 ISI MAHMOOD MD Ot C44.41 BASAL CELL CARCINOMA OF SKIN OF [place] AN 05/20/2018 ISI MAHMOOD MD Ot I10 ESSENTIAL (PRIMARY) HYPERTENSION 05/20/2018 ISI MAHMOOD MD Ot I25.10 ATHSCL HEART DISEASE OF [place] CORONARY 05/20/2018 ISI MAHMOOD MD Ot I42.9 CARDIOMYOPATHY, UNSPECIFIED 05/20/2018 ISI MAHMOOD MD Ot R56.9 UNSPECIFIED CONVULSIONS 05/20/2018 ISI MAHMOOD MD Ot Z79.899 OTHER FLOOR COVERING PRINTER (CURRENT) DRUG THERAPY 05/20/2018 ISI MAHMOOD MD Ot Z87.891 PERSONAL HISTORY OF NICOTINE DEPENDENCE 05/20/2018 ISI MAHMOOD MD Ot Z95.5 PRESENCE OF CORONARY ANGIOPLASTY IMPLANT 05/20/2018 ISI MAHMOOD MD Ot Z95.810 PRESENCE OF AUTOMATIC (IMPLANTABLE) CARD 05/23/2018 ISI MAHMOOD MD Ot C44.319 BASAL CELL CARCINOMA OF SKIN OF OTHER PA 05/23/2018 ISI MAHMOOD MD Ot C44.329 SQUAMOUS CELL CARCINOMA OF SKIN OF OTHER 05/23/2018 ISI MAHMOOD MD Ot C44.41 BASAL CELL CARCINOMA OF SKIN OF [place] AN 05/23/2018 ISI MAHMOOD MD Ot I10 ESSENTIAL (PRIMARY) HYPERTENSION 05/23/2018 ISI MAHMOOD MD Ot I25.10 ATHSCL HEART DISEASE OF [place] CORONARY 05/23/2018 ISI MAHMOOD MD Ot I42.9 CARDIOMYOPATHY, UNSPECIFIED 05/23/2018 ISI MAHMOOD MD Ot R56.9 UNSPECIFIED CONVULSIONS 05/23/2018 ELA MESSER, ISI Paniagua Ot Z79.899 OTHER FLOOR COVERING PRINTER (CURRENT) DRUG THERAPY 05/23/2018 ISI MAHMOOD MD Ot Z87.891 PERSONAL HISTORY OF NICOTINE DEPENDENCE 05/23/2018 EAL MESSER, ISI Paniagua Ot Z95.5 PRESENCE OF CORONARY ANGIOPLASTY IMPLANT 05/23/2018 ISI MAHMOOD MD Ot Z95.810 PRESENCE OF AUTOMATIC (IMPLANTABLE) CARD Procedures There is no data. Results Test [...] resistant Staphylococcus aureus (MRSA) screening culture - 09:25 Methicillin resistant Staphylococcus aureus (MRSA) screening culture NEG NRG Encounters ACCT No. Visit Date/Time Discharge Status Pt. Type Provider Facility Loc./Unit Complaint [id number] 03/14/2015 08:35:39 03/14/2015 23:59:59 CLS Outpatient Cornell Clements [id number] 01/11/2015 15:25:55 01/11/2015 23:59:59 CLS Outpatient Cornell Clements [id number] 12/09/2014 09:23:47 12/09/2014 23:59:59 CLS Outpatient Cornell Clements [id number] 05/16/2018 09:10:00 05/16/2018 13:55:00 DIS Outpatient ISI MAHMOOD MD Via [facility] SKIN LESIONS [id number] 05/14/2018 05:30:00 05/14/2018 09:48:00 DIS Outpatient ISI MAHMOOD MD Via [facility] PREOP SKIN LESIONS [id number] 03/21/2018 13:57:00 03/21/2018 23:59:59 CLS Outpatient JUN DON [facility] CARD I25.10 CAD [id number] 03/19/2018 08:20:00 03/19/2018 13:32:00 DIS Outpatient ISI MAHMOOD MD [facility] SKIN LESION,PERSONAL HX SQUAMOUS CELL SKIN CA [id number] 03/04/2018 08:18:00 03/04/2018 23:59:59 CLS Outpatient JUN DON [facility] CARD Z95.810 S/P ICD [id number] 09/25/2017 06:16:00 09/25/2017 12:40:00 DIS Outpatient ISI MAHMOOD MD [facility] SKIN LESION SCALP [id number] 09/18/2017 12:32:00 09/18/2017 14:10:00 DIS Outpatient ISI MAHMOOD MD [facility] PREOP SCALP LESIONS X2 [id number] 05/03/2017 09:49:00 05/03/2017 23:59:59 CLS Outpatient FLOR COLEMAN MD [facility] RT SEIZURE [id number] 01/21/2017 14:56:00 01/21/2017 16:20:00 DIS Emergency OSCAR SUAREZ DO [facility] ER RT SIDE WEAKNESS/POSS STROKE [id number] 10/24/2016 06:00:00 10/24/2016 10:35:00 DIS Outpatient ISI MAHMOOD MD [facility] SKIN LESIONS [id number] 10/19/2016 09:52:00 10/19/2016 10:20:00 DIS Outpatient ISI MAHMOOD MD [facility] PREOP SKIN LESIONS [id number] 01/11/2016 11:11:00 01/11/2016 15:00:00 DIS Outpatient ISI MAHMOOD MD [facility] MULTIPLE LESIONS [id number] 01/06/2016 13:03:00 01/06/2016 23:59:59 CLS Outpatient ISI MAHMOOD MD [facility] PREOP MULTIPLE LESIONS [id number] 10/18/2015 13:08:00 10/18/2015 23:59:59 CLS Outpatient MARGRET MANZO MD, FACC, FACP CCDS [facility] ICD ARTERI ISCHMIC [id number] 10/18/2015 13:02:00 10/18/2015 22:00:00 DIS Outpatient MARGRET MANZO MD, FACC, FACP CCDS [facility] CATH ICD AT [facility]IE ISCHEMIC CM [id number] 05/12/2015 08:00:00 05/12/2015 23:59:59 CLS Outpatient JUN DON [facility] CARD CAD,HTN,HLP [id number] 12/23/2014 10:00:00 12/23/2014 16:40:00 DIS Outpatient ISI MAHMOOD MD [facility] SKIN LESION [id number] 12/21/2014 13:08:00 12/21/2014 23:59:59 CLS Outpatient ISI MAHMOOD MD [facility] PREOP SKIN LESION [id number] 07/23/2013 09:22:00 07/23/2013 14:37:00 DIS Outpatient ISI MAHMOOD MD [facility] SDC SKIN LESION [id number] 06/25/2013 08:07:00 06/25/2013 23:59:59 CLS Outpatient ISI MAHMOOD MD [facility] PREOP SKIN LESION [id number] 01/08/2013 18:14:00 Document Registration [id number] 01/08/2013 08:26:00 Document Registration [id number] 01/06/2013 08:00:00 Document Registration [id number] 12/20/2011 07:13:00 Document Registration [id number] 06/05/2011 05:36:00 Document Registration [id number] 06/01/2011 08:16:00 Document Registration [id number] 11/23/2010 13:01:00 Document Registration [id number] 10/05/2010 12:54:00 Document Registration [id number] 09/22/2010 08:57:00 Document Registration [id number] 07/06/2010 13:30:00 Document Registration [id number] 04/06/2010 13:02:00 Document Registration [id number] 01/11/2010 09:19:00 Document Registration [id number] 01/05/2010 12:55:00 Document Registration [id number] 10/06/2009 13:01:00 Document Registration [id number] 07/07/2009 12:50:00 Document Registration [id number] 05/24/2008 09:36:00 Document Registration
[2018-12-09] MEDS ORDERED: NS IV 1000 ML 1,000 ML IV SCH (16:37)
[2018-12-09] MEDS ORDERED: PIPERACILLIN SODIUM/TAZOBACTAM 4.5 GM in NS (IVPB) 100 ML IV ONE (16:45)
--- NOTE | 2018-12-09 16:45 | ED Fall/Injury ---
General Stated Complaint: FELL AT WALKING TRACK Source: patient Exam Limitations: no limitations (MEHNAZ DOLAN) History of Present Illness Date Seen by Provider: Dec 09, 2018 Time Seen by Provider: 16:19 Initial Comments Patient arrives to the ER by EMS with chief complaint he was found down by some workers and a track field near the [place] where he regularly goes to walk. He did not answer any questions for EMS of present told him very confused story that he had a recent stroke. EMS reports he had a laceration over his left eye and his left hand is abraded. His son arrives after him and reports the patient has a history of seizures but his last seizure was greater than a year ago. He lives alone has a history of traumatic brain injury status post several years ago had a couple bouts of meningitis and then a fall down this basement steps that resulted in some traumatic brain injury and slow recovery of his cognitive abilities to about 85-90 % of what he was before according to the son. 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 Patient follows up with neurology and was just there a few weeks ago. He's been on Depakote and stable without a seizure for more than a year. He sets up and takes his own medicines and has been doing very good with that according the son who looks in on him frequently. Typically the ex- walks with him 6 miles a day at the track but she did not attend with him today. No one is certain how long the patient was laying down before he was discovered because no one witnessed him go down and the patient does not give a good accounting. (MEHNAZ DOLAN) Allergies and Home Medications Allergies Coded Allergies: No Known Drug Allergies (Unverified , 09/18/17) Home Medications Aspirin 81 Mg Tablet.dr, 81 MG PO DAILY, (Reported) Carvedilol 6.25 Mg Tablet, 6.25 MG PO BID, (Reported) Divalproex Sodium 250 Mg Tablet.dr, 500 MG PO 0800, (Reported) TAKES 2 (250MG) TABLETS Divalproex Sodium 250 Mg Tablet.dr, 250 MG PO 1200,1800,2100, (Reported) Donepezil HCl 10 Mg Tablet, 10 MG PO DAILY, (Reported) Ferrous Sulfate 325 Mg Tablet, 325 MG PO DAILY, (Reported) Hydralazine HCl 10 Mg Tablet, 10 MG PO DAILY, (Reported) Lisinopril 5 Mg Tablet, 5 MG PO DAILY, (Reported) Multivit-Min/FA/Lycopene/Lut 1 Each Tablet, 1 TAB PO DAILY, (Reported) [place] 3 Polyunsat Fatty Acids 1,000 Mg Cap, 2,000 MG PO DAILY, (Reported) Simvastatin 20 Mg Tablet, 20 MG PO DAILY, (Reported) Trazodone HCl 50 Mg Tablet, 50 MG PO HS, (Reported) Patient Home Medication List Home Medication List Reviewed: Yes (MEHNAZ DOLAN) Review of Systems Review of Systems Constitutional: see HPI (review of systems is difficult to obtain because the patient does not give more than 2-3 word answers. Per his ex- and son however we did obtain the following.); No chills, No diaphoresis, No fever, No malaise Eyes: Denies Blindness, Denies Blurred Vision Ears, Nose, Mouth, Throat: denies ear pain, denies nose pain, denies epistaxis Respiratory: No cough, No short of breath, No wheezing Cardiovascular: No chest pain, No edema, No palpitations Gastrointestinal: No abdominal pain, No constipation, No diarrhea, No loss of appetite, No nausea, No vomiting Genitourinary: No discharge, No dysuria Musculoskeletal: No back pain, No joint pain Skin: No pruritus, No rash Psychiatric/Neurological: Denies Headache, Denies Numbness, Denies Paresthesia ; Seizure (history of) (MEHNAZ DOLAN) Past Yqvgudp-Lrxbqa-Kqervk Hx Patient Social History Recreational Drug Use: No Smoking Status: Never a Smoker Type Used: Cigarettes Former Smoker, Quit: Oct 19, 1996 Recent Foreign Travel: No Contact w/Someone Who Travel: No Recent Hopitalizations: No (MEHNAZ DOLAN) Immunizations Up To Date Tetanus Booster (TDap): Unknown Date of Pneumonia Vaccine: Oct 18, 2015 Date of Influenza Vaccine: Sep 09, 2017 (MEHNAZ DOLAN) Seasonal Allergies Seasonal Allergies: No (MEHNAZ DOLAN) Past Medical History Defibrillator, Pacemaker Cardiomyopathy, Coronary Artery Disease, High Cholesterol, Hypertension Meningitis, Seizure Disorder, Traumatic Brain Injury Reproductive Disorders: No Sexually Transmitted Disease: No HIV/AIDS: No Loss of Vision: Bilateral Hearing Impairment: Denies Adverse Reaction/Blood Tranf: No (N/A) (MEHNAZ DOLAN) Physical Exam Vital Signs Vital Signs - First Documented 12/09/18 16:20 Temp 101.9 Pulse 89 Resp 14 B/P (MAP) 145/78 (100) Pulse Ox 93 O2 Delivery Room Air (ERICK,OSCAR K DO) Vital Signs Capillary Refill : (MEHNAZ DOLAN) Height, Weight, BMI Height: 5'10.00" Weight: 197lbs. 8.0oz. 89.152091vq; 28.3 BMI Method:Stated General Appearance: WD/WN, mild distress HEENT: PERRL/EOMI (3 mm bilateral), TMs normal, pharynx normal, other ( periorbital edema and ecchymoses. The eyes have intact extraocular motor function. There is 360 scleral hemorrhage) Neck: non-tender, normal inspection, other (C-spine precautions with a c- collar in place) Cardiovascular: normal peripheral pulses, regular rate, rhythm, no edema, no murmur Respiratory: chest non-tender, lungs clear, normal breath sounds, no respiratory distress, no accessory muscle use Peripheral Pulses: 2+ Dorsalis Pedis (R), 2+ Left Dors-Pedis (L), 2+ Radial Pulses (R), 2+ Radial Pulses (L) Gastrointestinal: normal bowel sounds, non tender, soft Extremities: normal range of motion, non-tender, no pedal edema, no calf tenderness, normal capillary refill, other (minor abrasion to the anterior portion of bilateral knees approximately 3 cm diameter each.) 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 There is a 3 cm laceration in the eyebrow over the left eye that is linear, nearly hemostatic into the subcutaneous tissue.) (MEHNAZ DOLAN) Carolynn Coma Score Best Eye Response: (4) Open Spontaneously Best Verbal Response: (4) Confused Conversation Best Motor Response: (6) Obeys Commands [place] Total: 14 (MEHNAZ DOLAN) Procedures/Interventions Eye : Location: left eye Anesthesia (gtts): Tetracaine Progress/Procedure Conclusion FLUORESCEIN STAIN LEFT EYE. --CORNEA IS CLEAR. HAS SMALL ABRASION/DYE UPTAKE TO LATERAL CONJUNCTIVAL SAC. (OSCAR KU DO) Date of ETT Placement: Jan 21, 2017 Time of ETT Placement: 1538 (MEHNAZ DOLAN) Wound Location: Face Other Wound Location In the eyebrow over the left eye Wound Length (cm): 5 Wound's Depth, Shape: linear, sub Q Wound Explored: clean Irrigated w/ Saline (ccs): 100 Betadine Prep?: No (chlorhexidine) Anesthesia: Lidocaine w/ Epi (2%) Volume Anesthetic (ccs): 7 Wound Debrided: minimal Suture: Prolene Suture Size: 4-0 Number of Sutures: 8 Layer Closure?: 1 Progress The surrounding skin and wound were cleaned thoroughly using for accident soap water and gauze in the usual fashion. We then draped the patient out in the usual sterile fashion donned sterile gloves and used a 25-gauge 1-1/2 inch needle and 2% lidocaine with epinephrine. We place the needle along the wound edge avoiding the skin and placed a linear track of lidocaine on the upper and lower wound edges after aspirating and not getting any blood return. A total of 7 cc were used to get the patient fully numb. We then thoroughly clean the wound with chlorhexidine soap water gauze again and then flushed with over 100 cc of saline through a syringe. When the patient was numb we then used 4-0 Prolene simple interrupted sutures to reapproximate the wound edges starting medially and working our way laterally. Wound edges were well aligned and approximated and the wound was hemostatic. We then used the suture needle to gently raise all of the eyebrow hairs up out of the wound. Patient tolerated the procedure well. Cleaned one more time with chlorhexidine soap water. (MEHNAZ DOLAN) Progress/Results/Core Measures Results/Orders Lab Results Laboratory Tests Test 12/09/18 16:25 12/09/18 16:35 12/09/18 16:51 12/09/18 17:04 Range/Units White Blood Count 9.9 4.3-11.0 10^3/uL Red Blood Count 4.47 4.35-5.85 10^6/uL Hemoglobin 13.2 L 13.3-17.7 G/DL Hematocrit 38 L 40-54 % Mean Corpuscular Volume 86 80-99 FL Mean Corpuscular Hemoglobin 30 25-34 PG Mean Corpuscular Hemoglobin Concent 34 32-36 G/DL Red Cell Distribution Width 13.2 10.0-14.5 % Platelet Count 178 130-400 10^3/uL Mean Platelet Volume 10.1 7.4-10.4 FL Neutrophils (%) (Auto) 77 H 42-75 % Lymphocytes (%) (Auto) 12 12-44 % Monocytes (%) (Auto) 10 0-12 % Eosinophils (%) (Auto) 2 0-10 % Basophils (%) (Auto) 0 0-10 % Neutrophils # (Auto) 7.6 1.8-7.8 X 10^3 Lymphocytes # (Auto) 1.2 1.0-4.0 X 10^3 Monocytes # (Auto) 1.0 0.0-1.0 X 10^3 Eosinophils # (Auto) 0.2 0.0-0.3 10^3/uL Basophils # (Auto) 0.0 0.0-0.1 10^3/uL Prothrombin Time 14.3 12.2-14.7 SEC INR Comment 1.1 0.8-1.4 Activated Partial Thromboplast Time 31 24-35 SEC Sodium Level 139 135-145 MMOL/L Potassium Level 4.0 3.6-5.0 MMOL/L Chloride Level 102 98-107 MMOL/L Carbon Dioxide Level 25 21-32 MMOL/L Anion Gap 12 5-14 MMOL/L Blood Urea Nitrogen 26 H 7-18 MG/DL Creatinine 1.01 0.60-1.30 MG/DL Estimat Glomerular Filtration Rate > 60 BUN/Creatinine Ratio 26 Glucose Level 153 H 70-105 MG/DL Calcium Level 9.0 8.5-10.1 MG/DL Corrected Calcium 9.1 8.5-10.1 MG/DL Total Bilirubin 0.5 0.1-1.0 MG/DL Aspartate Amino Transf (AST/SGOT) 19 5-34 U/L Alanine Aminotransferase (ALT/SGPT) 17 0-55 U/L Alkaline Phosphatase 45 40-136 U/L Total Creatine Kinase 149 30-200 U/L Troponin I < 0.028 <0.028 NG/ML Total Protein 6.6 6.4-8.2 GM/DL Albumin 3.9 3.2-4.5 GM/DL Valproic Acid (Depakene) Level 44.9 L 50.0-100.0 UG/ML Group A Streptococcus Screen NEGATIVE NEGATIVE Glucometer 152 H 70-110 MG/DL Lactic Acid Level 1.65 0.50-2.00 MMOL/L Test 12/09/18 17:49 Range/Units Urine Color YELLOW Urine Clarity CLEAR Urine pH 5 5-9 Urine Specific [place] 1.020 1.016-1.022 Urine Protein 3+ H NEGATIVE Urine Glucose (UA) NEGATIVE NEGATIVE Urine Ketones 2+ H NEGATIVE Urine Nitrite NEGATIVE NEGATIVE Urine Bilirubin NEGATIVE NEGATIVE Urine Urobilinogen 1 NORMAL MG/DL Urine Leukocyte Esterase 1+ H NEGATIVE Urine RBC (Auto) 1+ H NEGATIVE Urine RBC 5-10 H /HPF Urine WBC 0-2 /HPF Urine Crystals NONE /LPF Urine Bacteria NONE /HPF Urine Casts NONE /LPF Urine Mucus SMALL H /LPF Urine Culture Indicated NO (OSCAR KU DO) Micro Results Microbiology 12/09/18 Influenza Types A,B Antigen (JENNIFER) - Final, Complete (OSCAR KU DO) My Orders Orders - OSCAR KU DO Pelvis (12/09/18 18:21) Acetaminophen Tablet (Tylenol Tablet) (12/09/18 19:00) (OSCAR KU DO) Medications Given in ED Current Medications Medications Dose Ordered Sig/Lia Route Start Time Stop Time Status Last Admin Dose Admin Acetaminophen 1,000 mg ONCE ONCE PO 12/09/18 19:00 12/09/18 19:12 DC 12/09/18 19:17 1,000 MG Diphtheria/ Tetanus/Acell Pertussis 0.5 ml ONCE ONCE IM 12/09/18 17:00 12/09/18 17:01 DC 12/09/18 19:20 0.5 ML Fluorescein Sodium 1 mg ONCE ONCE OU 12/09/18 17:00 12/09/18 17:01 DC 12/09/18 17:17 1 MG Iohexol 100 ml ONCE ONCE IV 12/09/18 18:15 12/09/18 18:16 DC 12/09/18 18:14 100 ML Lidocaine/ Epinephrine 20 ml ONCE ONCE INJ 12/09/18 17:00 12/09/18 17:01 DC 12/09/18 17:17 20 ML Piperacillin Sod/ Tazobactam Sod 4.5 gm/Sodium Chloride 100 ml @ 200 mls/hr ONCE ONCE IV 12/09/18 16:45 12/09/18 17:14 DC 12/09/18 17:54 200 MLS/HR Sodium Chloride 100 ml ONCE ONCE IV 12/09/18 18:15 12/09/18 18:16 DC 12/09/18 18:14 100 ML Tetracaine HCl 4 ml ONCE ONCE OU 12/09/18 17:00 12/09/18 17:01 DC 12/09/18 17:18 4 ML (LILA KUA Mary DO) Vital Signs/I&O 12/09/18 16:20 Temp 101.9 Pulse 89 Resp 14 B/P (MAP) 145/78 (100) Pulse Ox 93 O2 Delivery Room Air (ERICKOSCAR K DO) Progress Progress Note : Time: 16:56 Progress Note Patient has a fevers were going to get a workup to include labs and urine, rapid strep, influenza, creatinine kinase. Plan to x-ray the chest, bilateral knees and hand as well as CT of the head, maxillofacial, C-spine. We'll get a CT with contrast of the chest, abdomen and pelvis as he is an unreliable historian at this point. Could be postictal if this was a seizure. There is copious amount of abrasion on the left lens of his eyeglasses consistent with possible seizure activity. Not exactly consistent with just a fall. The globe of his left eyeball has quite a bit of scleral hemorrhage but none visible in the anterior chamber. At this point there is no entrapment of either eye. Troponin and EKG. Echocardiogram March [address] Jackson: Left ventricular ejection fraction 45-50% so and consistent with a reversible restrictive pattern and decreased left ventricular diastolic compliance, grade 3 diastolic dysfunction. Hypokinesis of the basal mid inferior and basal inferior lateral myocardium. There is mild regurgitation of the mitral valve. The keratin horns seen on the patient's face and anterior scalp are apparently consistent with his history of squamous cell carcinoma status post multiple excisions by Dr. Chavira. History of mild renal insufficiency with a creatinine normally around 1.2. Cardiac catheterization [address] 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 Ischemic cardiomyopathy with an ejection fraction of 30%. Posterior basal and diaphragmatic akinesis. Mild elevation of left ventricular end-diastolic pressure. (MEHNAZ DOLAN) Progress Note : Progress Note 1809--ASSUMED CARE FROM DR. DOLAN. PT CURRENTLY IN XRAY DEPT. CERVICAL COLLAR REMOVED ON RECEIVING RADIOLOGIST REPORTS OF CT SCAN OF CERVICAL SPINE. PT HAS NO COMPLAINTS OF PAIN ANYWHERE PT HAS NO COMPLAINTS OF ANY KIND--STATES HE FEELS FINE PT HAS NO RECOLLECTION OF ANY OF TODAY'S EVENTS MENTATION IS SLOW. PT DOES HAVE BASELINE DECREASED MENTATION DUE TO PRIOR TBI, AND HISTORY OF MENINGITIS PT DENIES ANY RECENT ILLNESS, OR COUGH OR FEVER. FAMILY UNAWARE OF ANY RECENT ILLNESS. PT DENIES ANY NAUSEA/VOMITING/DIARRHEA OR ABDOMINAL PAIN, ABDOMEN IS NON-TENDER ON PALPATION PT HAD NO DETERIORATION IN CONDITION DURING ER STAY (OSCAR KU DO) Initial ECG Impression Date: Dec 09, 2018 Initial ECG Impression Time: 17:12 Initial ECG Rate: 93 Initial ECG Rhythm: Normal Sinus Initial ECG Intervals: Normal Initial ECG Impression: Normal, Nonspecific Changes Comment No ST-T wave elevation or depression. (MEHNAZ DOLAN) Diagnostic Imaging Diagonstic Imaging: Xray Plain Films/CT/US/NM/MRI: chest Comments NAME: [facility] REC#: [id number] PHYSICIAN: SHIELA MONTAÑO MD CC: LIZETTE DONOVAN MD; SHIELA MONTAÑO MD Page 1 of 1 RADIOLOGY REPORT [facility] [place], [place] CC: LIZETTE DONOVAN MD; SHIELA MONTAÑO MD Page 1 of 1 RADIOLOGY REPORT NAME: [facility] REC#: [id number] PT STATUS: ADM IN : 1940 PHYSICIAN: SHIELA MONTAÑO MD ADMIT DATE: 12/09/18 Signed Date of Exam: 12/10/18 CHEST 1 VIEW, AP/PA ONLY INDICATION: Seizure/fall Portable chest 3:18 AM There is a single-chamber pacemaker with dual leads including AICD. Heart size and pulmonary vascularity normal. Lungs are clear. There are no effusions or pneumothoraces. IMPRESSION: No acute abnormalities in the chest Dictated by: Dictated on workstation # [id number] Dict: 12/10/18 0812 Trans: 12/10/181032 Interpreted by: LIZETTE DONOVAN MD Electronically signed by: LIZETTE DONOVAN MD 12/10/18 103 NAME: [facility] REC#: [id number] PHYSICIAN: MEHNAZ DOLAN MD CC: MAI COTTON MD; MEHNAZ DOLAN Page 1 of 1 RADIOLOGY REPORT [facility] [place], [place] CC: MAI COTTON MD; MEHNAZ DOLAN Page 1 of 1 RADIOLOGY REPORT NAME: [facility] REC#: [id number] PT STATUS: REG ER : 1940 PHYSICIAN: MEHNAZ DOLAN MD ADMIT DATE: 12/09/18/ER Signed Date of Exam: 12/09/18 CHEST 1 VIEW, AP/PA ONLY INDICATION: Found down. TIME OF EXAM: 07:04 p.m. Correlation is made with prior study from 01/21/2017. FINDINGS: The heart size is stable. Cardiac defibrillator is in place. The lungs are clear. No infiltrate, effusion, or pneumothorax is seen. IMPRESSION: No acute cardiopulmonary process is detected. Dictated by: Dictated on workstation # [id number] Dict: 12/09/181858 Trans: 12/09/181903 Interpreted by: MAI COTTON MD Electronically signed by: MAI COTTON MD 12/09/181903 Reviewed: Reviewed by Me Diagonstic Imaging: Xray Plain Films/CT/US/NM/MRI: hand (Left) Comments NAME: [facility] REC#: [id number] PHYSICIAN: MEHNAZ DOLAN MD CC: NORRIS HARDING MD; MEHNAZ DOLAN Page 1 of 1 RADIOLOGY REPORT [facility] [place], [place] CC: NORRIS HARDING MD; MEHNAZ DOLAN Page 1 of 1 RADIOLOGY REPORT NAME: [facility] REC#: [id number] PT STATUS: REG ER : 1940 PHYSICIAN: MEHNAZ DOLAN MD ADMIT DATE: 12/09/18/ER Signed Date of Exam: 12/09/18 HAND, LEFT, 3 VIEWS PATIENT HISTORY: Unwitnessed fall, left hand abrasion. TECHNIQUE: 3 views of the left and COMPARISON: None FINDINGS: No acute fracture or dislocation is seen in the left hand. Alignment appears normal. There are moderate degenerative changes at the first metacarpophalangeal joint. Mild degenerative changes are seen scattered elsewhere in the left hand. There is soft tissue laceration with punctate foreign bodies at the dorsal ulnar aspect of the left hand. IMPRESSION: 1. Soft tissue laceration with punctate foreign bodies at the dorsal lateral aspect of the left hand. No acute osseous abnormality seen. Dictated by: Dictated on workstation # [id number] Dict: 12/09/181858 Trans: 12/09/181935 Interpreted by: NORRIS HARDING MD Electronically signed by: NORRIS HARDING MD 12/09/181935 Reviewed: Reviewed by Ok Diagonstic Imaging: Xray Plain Films/CT/US/NM/MRI: knee (bilat) Comments NAME: [facility] REC#: [id number] PHYSICIAN: MEHNAZ DOLAN MD CC: NORRIS HARDING MD; MEHNAZ DOLAN Page 2 of 2 RADIOLOGY REPORT [facility] [place], [place] CC: NORRIS HARDING MD; MEHNAZ DOLAN Page 1 of 2 RADIOLOGY REPORT NAME: [facility] REC#: [id number] PT STATUS: REG ER : 1940 PHYSICIAN: MEHNAZ DOLAN MD ADMIT DATE: 12/09/18/ER Signed Date of Exam: 12/09/18 KNEE, 3 VIEWS, BILATERAL PATIENT HISTORY: Unwitnessed fall, knee abrasions. TECHNIQUE: Three views of the right and left knees. COMPARISON: None. FINDINGS: Right knee: There are mild degenerative changes in the right knee. No acute fracture is seen. Small joint bodies are present. There is significant calcific atherosclerosis. There is patellar enthesopathy. No significant joint effusion is seen, although positioning is suboptimal for evaluation. Left knee: There are mild degenerative changes in the left knee. No significant joint effusion is seen, although positioning is suboptimal for evaluation. There is moderate patellar enthesopathy, with irregularity at the inferior patellar enthesophyte which may represent a nondisplaced fracture of the enthesophyte. There is extensive calcific atherosclerosis. IMPRESSION: 1. Age-indeterminate fracture at the inferior patellar enthesophyte of the left knee. No other fracture is seen in the bilateral knees. 2. Degenerative changes in the bilateral knees, right greater than left. Dictated by: Dictated on workstation # [id number] Dict: 12/09/181900 Trans: 12/09/181935 Interpreted by: NORRIS HARDING MD Electronically signed by: NORRIS HARDING MD 12/09/181935 Reviewed: Reviewed by Ok Diagonstic Imaging: CT (without contrast) Plain Films/CT/US/NM/MRI: c-spine, head (maxillofacial) Comments NAME: [facility] REC#: [id number] PHYSICIAN: MEHNAZ DOLAN MD CC: MAI COTTON MD; MEHNAZ DOLAN Page 2 of 2 RADIOLOGY REPORT [facility] [place] [place] CC: MAI COTTON MD; MEHNAZ DOLAN Page 1 of 2 RADIOLOGY REPORT NAME: [facility] REC#: [id number] PT STATUS: REG ER : 1940 PHYSICIAN: MEHNAZ DOLAN MD ADMIT DATE: 12/09/18/ER Signed Date of Exam: 12/09/18 CT HEAD/FACE/CERVICAL WO PROCEDURE: CT head, face, and cervical spine without contrast. TECHNIQUE: Multiple contiguous axial images were obtained through the head, neck, and facial bones without the use of intravenous contrast. Sagittal and coronal reformations through the cervical spine and facial bones were also performed. INDICATION: Fall with confusion, disorientation and facial laceration. CT head: Comparison is made with prior CT head from 01/21/2017. Ventricular size is stable. There are areas of encephalomalacia in the left middle cerebral artery territory as well as in the right posterior parietal lobe and bilateral centrum semiovale consistent with prior infarcts. There is no sulcal effacement or midline shift. No acute intra-axial or extra-axial hemorrhage is seen. Cisterns are patent. There is soft tissue swelling over the left orbit and left frontal scalp. No calvarial fracture is seen. IMPRESSION: 1. Chronic changes intracranially. No acute adrenal hemorrhage is seen. There is left frontal scalp and left periorbital soft tissue swelling. CT cervical spine: Curvature of the cervical spine is normal. Multilevel degenerative disc disease is seen with variable disc space narrowing and marginal spurring. No fractures are identified. The prevertebral tissues are within normal limits. The odontoid is intact. IMPRESSION: Cervical spondylosis. No acute bony abnormality is detected. CT maxillofacial: The mandible appears intact. Zygomatic arches are intact. Yair sinus story and nasal bones appear intact. The orbital story appear intact. No facial fractures are seen. The visualized paranasal sinuses are clear. Mastoids are aerated. There is soft tissue swelling in the left frontal scalp as well as the left periorbital tissues. Globes appear to be intact. There are small opacities in the subcutaneous tissues in the left temporal scalp which may represent small foreign bodies. IMPRESSION: Left periorbital and left frontal soft tissue swelling but no facial bone fracture seen. There may be small foreign bodies in the subcutaneous tissues as described. Dictated by: Dictated on workstation # [id number] Dict: 12/09/181821 Trans: 12/09/181839 Interpreted by: MAI COTTON MD Electronically signed by: MAI COTTON MD 12/09/181839 Reviewed: Reviewed by Me Diagonstic Imaging: CT (with contrast) Plain Films/CT/US/NM/MRI: chest, abdomen, pelvis Comments NAME: [facility] REC#: [id number] PHYSICIAN: MEHNAZ DOLAN MD CC: MAI COTTON MD; MEHNAZ DOLAN Page 2 of 2 RADIOLOGY REPORT [facility] [place], [place] CC: MAI COTTON MD; MEHNAZ DOLAN Page 1 of 2 RADIOLOGY REPORT NAME: [facility] REC#: [id number] PT STATUS: REG ER : 1940 PHYSICIAN: MEHNAZ DOLAN MD ADMIT DATE: 12/09/18/ER Signed Date of Exam: 12/09/18 CT CHEST/ABDOMEN/PELVIS W PROCEDURE: CT chest, abdomen, and pelvis with contrast. TECHNIQUE: Multiple contiguous axial images were obtained through the chest, abdomen, and pelvis after the administration of intravenous contrast. INDICATION: Patient found down. CT CHEST: A left chest wall cardiac pacemaker is in place. No mediastinal hematoma is seen. There is no pericardial or pleural fluid identified. No axillary, hilar, or mediastinal lymphadenopathy is detected. No parenchymal contusion or pneumothorax is seen. There is a calcified granuloma in the right lower lobe. CT ABDOMEN AND PELVIS: No focal liver or splenic laceration is seen. The gallbladder is surgically absent. The pancreas is unremarkable. No adrenal mass or hematoma is identified. No renal injury is seen. The aorta is nonaneurysmal. The bowel loops are normal in caliber. No obstruction is identified. There is diverticulosis of the sigmoid colon. There does appear to be some mild pericolonic inflammatory stranding in the region of the sigmoid colon suggestive of acute diverticulitis. Trace free fluid in the pelvis is seen. No well-formed fluid collection to suggest abscess formation is seen. There is no free air. The bladder is unremarkable. Prostate gland appears enlarged. IMPRESSION: 1. Unremarkable CT of the chest. 2. Findings suggestive of acute sigmoid diverticulitis without evidence of abscess formation or bowel obstruction. 3. Prostatomegaly. 4. No evidence of abdominal or pelvic visceral injury. Dictated by: Dictated on workstation # [id number] Dict: 12/09/18 1833 Trans: 12/09/181839 Interpreted by: MAI COTTON MD Electronically signed by: MAI COTTON MD 12/09/181839 Reviewed: Reviewed by Ok Diagonstic Imaging: Xray Plain Films/CT/US/NM/MRI: pelvis Comments NAME: ALISHA EAST [facility] REC#: [id number] PHYSICIAN: OSCAR KU DO CC: MAI COTTON MD; OSCAR KU DO Page 1 of 1 RADIOLOGY REPORT [facility] [place], [place] CC: MAI COTTON MD; OSCAR KU DO Page 1 of 1 RADIOLOGY REPORT NAME: ALISHA EAST REC#: [id number] PT STATUS: REG ER : 1940 PHYSICIAN: OSCAR KU DO ADMIT DATE: 12/09/18/ER Signed Date of Exam: 12/09/18 PELVIS INDICATION: Found down. TIME OF EXAM: 07:05 p.m. FINDINGS: A single AP view of the pelvis demonstrates normal femoroacetabular alignment. The femoral heads and necks are intact. Rami appear intact. The SI joints and symphyses are not widened. No fractures are seen. IMPRESSION: No acute bony abnormality is detected. Dictated by: Dictated on workstation # [id number] Dict: 12/09/181899 Trans: 12/09/181903 Interpreted by: MAI COTTON MD Electronically signed by: MAI COTTON MD 12/09/181903 Reviewed: Reviewed by Me (MEHNAZ DOLAN) Comments CT RESULTS AT 1859 (OSCAR KU DO) Transfer of Care Time: 18:09 Care transferred to: Dr. Ku (MEHNAZ DOLAN) Departure Communication (Admissions) 1909--SPOKE WITH DR. MONTAÑO, HOSPITALIST STRAIGHT EDGER. ACCEPTS PT FOR ADMIT. HE ADVISES NO FURTHER ANTIBIOTICS AT THIS TIME, DEFINITIVE SOURCE OF FEVER IS NOT KNOWN. WILL CONSULT TRAUMA SURGEON 1914--SPOKE WITH DR. COCHRAN, TRAUMA SURGEON STRAIGHT EDGER, FOR CONSULT. HE ADVISES TO GIVE ANTIBIOTICS, BASED ON CT FINDINGS OF SMALL AREA OF DIVERTICULITIS. IN CONJUNCTION WITH FEVER. EVEN THOUGH PT DOES NOT C/O ABDOMINAL PAIN AND IS NOT TENDER. (OSCAR KU DO) Impression Primary Impression: Unwitnessed fall Additional Impressions: SEIZURE VS SYNCOPE Head injury FACIAL AND LEFT PERIORBITAL CONTUSION/HEMATOMA Abrasion of left conjunctiva Fever Diverticulitis Dehydration LEFT HAND CONTUSION AND ABRASION BILATERAL KNEE CONTUSIONS Ertbtelkdz-riaynfjkl-otbuzab (DPT) vaccination administered at current visit Laceration of face Qualified Codes: S01.81XA - Laceration without foreign body of other part of head, initial encounter Disposition: ADMITTED INPATIENT Condition: Stable Admissions Decision to Admit Reason: Admit from ER (General) Decision to Admit/Date: Dec 09, 2018 Time/Decision to Admit Time: 19:10 (OSCAR KU DO) Departure-Patient Inst. Referrals: ELIZABETH GLEASON MD (PCP/Family) Primary Care Physician MEHNAZ DOLAN Dec 09, 2018 16:45 OSCAR KU DO Dec 09, 2018 19:01
[2018-12-09] MEDS ORDERED: TETANUS,DIPTH,PERTUSS P/F (BOOSTRIX) 0.5 ML VIAL IM ONE (17:00)
[2018-12-09] MEDS ORDERED: LIDOCAINE/EPI 2% 1:100,00 (XYLOCAINE) 20 ML VIAL INJ ONE (17:00)
[2018-12-09] MEDS ORDERED: FLUORESCEIN (FLUOR-I-STRIPS) 1 MG STRP OU ONE (17:00)
[2018-12-09] MEDS ORDERED: TETRACAINE 0.5% OPHTH SOLN 4 ML BTL (SINGLE DOSE ONLY) OU ONE (17:00)
[2018-12-09 17:15] LABS: BASOPHILS % (AUTO) 0 % (0-10); EOSINOPHILS # (AUTO) 0.2 10^3/uL (0.0-0.3); EOSINOPHILS % (AUTO) 2 % (0-10); HEMATOCRIT 38 % (40-54); HEMOGLOBIN 13.2 G/DL (13.3-17.7); LYMPHOCYTES # (AUTO) 1.2 X 10^3 (1.0-4.0); LYMPHOCYTES % (AUTO) 12 % (12-44); MEAN CORPUSCULAR HEMOGLOBIN 30 PG (25-34); MEAN CORPUSCULAR HGB CONC 34 G/DL (32-36); MEAN CORPUSCULAR VOLUME 86 FL (80-99); MEAN PLATELET VOLUME 10.1 FL (7.4-10.4); MONOCYTES % (AUTO) 10 % (0-12); NEUTROPHILS # (AUTO) 7.6 X 10^3 (1.8-7.8); NEUTROPHILS % (AUTO) 77 % (42-75); PLATELET COUNT 178 10^3/uL (130-400); RED BLOOD COUNT 4.47 10^6/uL (4.35-5.85); RED CELL DISTRIBUTION WIDTH 13.2 % (10.0-14.5); WHITE BLOOD COUNT 9.9 10^3/uL (4.3-11.0)
[2018-12-09 17:22] LABS: INR 1.1 (0.8-1.4); PROTHROMBIN TIME PATIENT 14.3 SEC (12.2-14.7)
[2018-12-09 17:30] LABS: ALANINE AMINOTRANSFERASE 17 U/L (0-55); ALBUMIN 3.9 GM/DL (3.2-4.5); ALKALINE PHOSPHATASE 45 U/L (40-136); BILIRUBIN,TOTAL 0.5 MG/DL (0.1-1.0); BUN/CREATININE RATIO 26; CARBON DIOXIDE 25 MMOL/L (21-32); CHLORIDE 102 MMOL/L (98-107); CREATINE KINASE 149 U/L (30-200); CREATININE SERUM 1.01 MG/DL (0.60-1.30); GFR ESTIMATED > 60; GLUCOSE 153 MG/DL (70-105); SODIUM 139 MMOL/L (135-145); TOTAL PROTEIN 6.6 GM/DL (6.4-8.2)
[2018-12-09 17:36] LABS: VALPROIC ACID 44.9 UG/ML (50.0-100.0)
[2018-12-09 17:59] LABS: BILIRUBIN,URINE NEGATIVE (NEGATIVE); CLARITY,URINE CLEAR; COLOR,URINE YELLOW; GLUCOSE, URINE (UA) NEGATIVE (NEGATIVE); KETONES,URINE 2+ (NEGATIVE); LEUKOCYTE ESTERASE ,URINE 1+ (NEGATIVE); NITRITE,URINE NEGATIVE (NEGATIVE); PH,URINE 5 (5-9); PROTEIN,URINE 3+ (NEGATIVE); UROBILINOGEN,URINE 1 MG/DL (NORMAL)
[2018-12-09 18:06] LABS: WBC,URINE 0-2 /HPF
[2018-12-09] MEDS ORDERED: RECEIVED CONTRAST (Hold Metformin) IV SCH (18:15)
[2018-12-09] MEDS ORDERED: NS 100 ML (IVPB) BAG IV ONE (18:15)
[2018-12-09] MEDS ORDERED: IOHEXOL 350 MG/ML 100 ML (OMNIPAQUE 350) VIAL IV ONE (18:15)
--- NOTE | 2018-12-09 18:37 | Diagnostic Imaging Report ---
PROCEDURE: CT head, face, and cervical spine without contrast. TECHNIQUE: Multiple contiguous axial images were obtained through the head, neck, and facial bones without the use of intravenous contrast. Sagittal and coronal reformations through the cervical spine and facial bones were also performed. INDICATION: Fall with confusion, disorientation and facial laceration. CT head: Comparison is made with prior CT head from 01/21/2017. Ventricular size is stable. There are areas of encephalomalacia in the left middle cerebral artery territory as well as in the right posterior parietal lobe and bilateral centrum semiovale consistent with prior infarcts. There is no sulcal effacement or midline shift. No acute intra-axial or extra-axial hemorrhage is seen. Cisterns are patent. There is soft tissue swelling over the left orbit and left frontal scalp. No calvarial fracture is seen. IMPRESSION: 1. Chronic changes intracranially. No acute adrenal hemorrhage is seen. There is left frontal scalp and left periorbital soft tissue swelling. CT cervical spine: Curvature of the cervical spine is normal. Multilevel degenerative disc disease is seen with variable disc space narrowing and marginal spurring. No fractures are identified. The prevertebral tissues are within normal limits. The odontoid is intact. IMPRESSION: Cervical spondylosis. No acute bony abnormality is detected. CT maxillofacial: The mandible appears intact. Zygomatic arches are intact. Yair sinus story and nasal bones appear intact. The orbital story appear intact. No facial fractures are seen. The visualized paranasal sinuses are clear. Mastoids are aerated. There is soft tissue swelling in the left frontal scalp as well as the left periorbital tissues. Globes appear to be intact. There are small opacities in the subcutaneous tissues in the left temporal scalp which may represent small foreign bodies. IMPRESSION: Left periorbital and left frontal soft tissue swelling but no facial bone fracture seen. There may be small foreign bodies in the subcutaneous tissues as described. Dictated by: Dictated on workstation # [id number]
--- NOTE | 2018-12-09 18:40 | Diagnostic Imaging Report ---
PROCEDURE: CT chest, abdomen, and pelvis with contrast. TECHNIQUE: Multiple contiguous axial images were obtained through the chest, abdomen, and pelvis after the administration of intravenous contrast. INDICATION: Patient found down. CT CHEST: A left chest wall cardiac pacemaker is in place. No mediastinal hematoma is seen. There is no pericardial or pleural fluid identified. No axillary, hilar, or mediastinal lymphadenopathy is detected. No parenchymal contusion or pneumothorax is seen. There is a calcified granuloma in the right lower lobe. CT ABDOMEN AND PELVIS: No focal liver or splenic laceration is seen. The gallbladder is surgically absent. The pancreas is unremarkable. No adrenal mass or hematoma is identified. No renal injury is seen. The aorta is nonaneurysmal. The bowel loops are normal in caliber. No obstruction is identified. There is diverticulosis of the sigmoid colon. There does appear to be some mild pericolonic inflammatory stranding in the region of the sigmoid colon suggestive of acute diverticulitis. Trace free fluid in the pelvis is seen. No well-formed fluid collection to suggest abscess formation is seen. There is no free air. The bladder is unremarkable. Prostate gland appears enlarged. IMPRESSION: 1. Unremarkable CT of the chest. 2. Findings suggestive of acute sigmoid diverticulitis without evidence of abscess formation or bowel obstruction. 3. Prostatomegaly. 4. No evidence of abdominal or pelvic visceral injury. Dictated by: Dictated on workstation # [id number]
[2018-12-09] MEDS ORDERED: ACETAMINOPHEN 500 MG TAB (TYLENOL) PO ONE (19:00)
--- NOTE | 2018-12-09 19:02 | Diagnostic Imaging Report ---
INDICATION: Found down. TIME OF EXAM: 07:04 p.m. Correlation is made with prior study from 01/21/2017. FINDINGS: The heart size is stable. Cardiac defibrillator is in place. The lungs are clear. No infiltrate, effusion, or pneumothorax is seen. IMPRESSION: No acute cardiopulmonary process is detected. Dictated by: Dictated on workstation # [id number]
--- NOTE | 2018-12-09 19:03 | Diagnostic Imaging Report ---
PATIENT HISTORY: Unwitnessed fall, left hand abrasion. TECHNIQUE: 3 views of the left and COMPARISON: None FINDINGS: No acute fracture or dislocation is seen in the left hand. Alignment appears normal. There are moderate degenerative changes at the first metacarpophalangeal joint. Mild degenerative changes are seen scattered elsewhere in the left hand. There is soft tissue laceration with punctate foreign bodies at the dorsal ulnar aspect of the left hand. IMPRESSION: 1. Soft tissue laceration with punctate foreign bodies at the dorsal lateral aspect of the left hand. No acute osseous abnormality seen. Dictated by: Dictated on workstation # [id number]
--- NOTE | 2018-12-09 19:04 | Diagnostic Imaging Report ---
INDICATION: Found down. TIME OF EXAM: 07:05 p.m. FINDINGS: A single AP view of the pelvis demonstrates normal femoroacetabular alignment. The femoral heads and necks are intact. Rami appear intact. The SI joints and symphyses are not widened. No fractures are seen. IMPRESSION: No acute bony abnormality is detected. Dictated by: Dictated on workstation # [id number]
--- NOTE | 2018-12-09 19:07 | Diagnostic Imaging Report ---
PATIENT HISTORY: Unwitnessed fall, knee abrasions. TECHNIQUE: Three views of the right and left knees. COMPARISON: None. FINDINGS: Right knee: There are mild degenerative changes in the right knee. No acute fracture is seen. Small joint bodies are present. There is significant calcific atherosclerosis. There is patellar enthesopathy. No significant joint effusion is seen, although positioning is suboptimal for evaluation. Left knee: There are mild degenerative changes in the left knee. No significant joint effusion is seen, although positioning is suboptimal for evaluation. There is moderate patellar enthesopathy, with irregularity at the inferior patellar enthesophyte which may represent a nondisplaced fracture of the enthesophyte. There is extensive calcific atherosclerosis. IMPRESSION: 1. Age-indeterminate fracture at the inferior patellar enthesophyte of the left knee. No other fracture is seen in the bilateral knees. 2. Degenerative changes in the bilateral knees, right greater than left. Dictated by: Dictated on workstation # [id number]
[2018-12-09] MEDS ORDERED: DIVALPROEX 500 MG DELAYED RELEASE (DEPAKOTE) TAB PO SCH (19:45)
[2018-12-09] MEDS ORDERED: GENTAMICIN 0.3% OPHTH SOLN 5 ML OP SCH (19:45)
--- NOTE | 2018-12-09 19:51 | NUR ---
attempted to call report. Nurse unavailable.
[2018-12-09 20:35] VITALS: BP 127/61
--- NOTE | 2018-12-09 20:35 | NUR ---
Received report from Francheska in ED. Pt to floor at 2034. ALISHA EAST admitted to room 405-1, with an admitting diagnosis of unwitnessed fall vs seizure vs syncope, on 12/09/18 from ED via stretcher, accompanied by staff and family. ALISHA EAST introduced to surroundings, call light, bed controls, phone, TV, temperature control, lights, meal times, smoking policy, visitor policy, side rail policy, bathrooms and showers. Patient Rights given to patient in the handbook. ALISHA EAST verbalizes understanding that [facility] is not responsible for the loss or damage to any personal effects or valuables that are kept in the patients posession during their hospitalization. ALISHA EAST verbalizes understanding of Interdisciplinary Patient Education. Patient and/or family were informed about the Rapid Response Team and its purpose.
--- NOTE | 2018-12-09 20:47 | NUR ---
Ed does not have depakote in omnicell. Depakote to be given on floor.
[2018-12-09] MEDS ORDERED: LORazepam INJ 2 MG/ML (ATIVAN) VIAL IV PRN (21:30)
[2018-12-09 21:41] VITALS: BP 129/76
[2018-12-09] MEDS ORDERED: CATHETER FLUSH 10 ML SYR IV PRN (22:15)
[2018-12-09 22:42] VITALS: BP 128/72
[2018-12-09] MEDS: D5 1/2 NS 1000 ML IV SOLUTION 1,000 ML IV SCH (23:10)
[2018-12-09] MEDS: GENTAMICIN 0.3% OPHTH SOLN 5 ML OS SCH (23:11)
[2018-12-09] MEDS: ACETAMINOPHEN 500 MG TAB (TYLENOL) PO PRN (23:11)
[2018-12-09 23:35] VITALS: BP 113/69
[2018-12-10] VITALS (15 sets, daily range): BP systolic 121–160; BP diastolic 63–90
[2018-12-10] MEDS ORDERED: PIPERACILLIN/TAZO 4.5 GM/NS 100 ML IV ONE ×2
[2018-12-10] MEDS: GENTAMICIN 0.3% OPHTH SOLN 5 ML OS SCH ×5 (04:13→20:42)
[2018-12-10 06:04] LABS: BASOPHILS % (AUTO) 0 % (0-10); EOSINOPHILS # (AUTO) 0.2 10^3/uL (0.0-0.3); EOSINOPHILS % (AUTO) 2 % (0-10); HEMATOCRIT 36 % (40-54); LYMPHOCYTES # (AUTO) 1.5 X 10^3 (1.0-4.0); LYMPHOCYTES % (AUTO) 15 % (12-44); MEAN CORPUSCULAR HEMOGLOBIN 29 PG (25-34); MEAN CORPUSCULAR HGB CONC 33 G/DL (32-36); MEAN CORPUSCULAR VOLUME 87 FL (80-99); MEAN PLATELET VOLUME 10.4 FL (7.4-10.4); MONOCYTES # (AUTO) 1.2 X 10^3 (0.0-1.0); MONOCYTES % (AUTO) 11 % (0-12); NEUTROPHILS # (AUTO) 7.3 X 10^3 (1.8-7.8); NEUTROPHILS % (AUTO) 72 % (42-75); PLATELET COUNT 154 10^3/uL (130-400); RED BLOOD COUNT 4.15 10^6/uL (4.35-5.85); RED CELL DISTRIBUTION WIDTH 12.9 % (10.0-14.5); WHITE BLOOD COUNT 10.1 10^3/uL (4.3-11.0)
[2018-12-10 06:31] LABS: ALANINE AMINOTRANSFERASE 10 U/L (0-55); ALBUMIN 3.3 GM/DL (3.2-4.5); ALKALINE PHOSPHATASE 44 U/L (40-136); BILIRUBIN,TOTAL 0.6 MG/DL (0.1-1.0); BUN/CREATININE RATIO 25; CALCIUM 8.5 MG/DL (8.5-10.1); CARBON DIOXIDE 24 MMOL/L (21-32); CHLORIDE 103 MMOL/L (98-107); CREATININE SERUM 0.95 MG/DL (0.60-1.30); GFR ESTIMATED > 60; GLUCOSE 130 MG/DL (70-105); POTASSIUM 3.5 MMOL/L (3.6-5.0); SODIUM 138 MMOL/L (135-145)
[2018-12-10] MEDS: D5 1/2 NS 1000 ML IV SOLUTION 1,000 ML IV SCH ×2 (06:40→11:36)
[2018-12-10] MEDS: CATHETER FLUSH 10 ML SYR IV SCH ×3 (06:40→20:42)
[2018-12-10] MEDS: ACETAMINOPHEN 500 MG TAB (TYLENOL) PO PRN ×2 (06:40→16:16)
--- NOTE | 2018-12-10 08:29 | Diagnostic Imaging Report ---
INDICATION: Seizure/fall Portable chest 3:18 AM There is a single-chamber pacemaker with dual leads including AICD. Heart size and pulmonary vascularity normal. Lungs are clear. There are no effusions or pneumothoraces. IMPRESSION: No acute abnormalities in the chest Dictated by: Dictated on workstation # [id number]
--- NOTE | 2018-12-10 09:44 | Consultation ---
History of Present Illness History of Present Illness Patient Consulted On(aline/time) 12/10/18 07:14 Date Seen by Provider: Dec 10, 2018 Time Seen by Provider: 07:14 History of Present Illness consult requested by Dr. Claros fall secondary likely seizure Patient is a 78-year-old male who was walking he was found by workers a track on the ground. He had a laceration to the left eyebrow abrasion to the left hand. Patient has history of seizures and history of traumatic brain injury. Patient injury was unwitnessed. His laceration repaired in the ER. He has a left scleral hemorrhage patient is alert and he is very minimal discomfort in the left lower quadrant he does not have any other complaints at this time. His CT scan chest abdomen and pelvis demonstrated no acute injury of the chest has some changes consistent with diverticulitis. CT of the head and C-spine no acute intracranial process some left frontal periorbital swelling the x-rays of left knee demonstrating inferior patellar age-indeterminate fracture. Allergies and Home Medications Allergies Coded Allergies: No Known Drug Allergies (Unverified , 09/18/17) Home Medications Carvedilol 6.25 Mg Tablet, 6.25 MG PO BID, (Reported) Divalproex Sodium 250 Mg Tablet.dr, 250 MG PO QID, (Reported) TAKE ONE TABLET EVERY MORNING, NOON, 6PM AND BEDTIME Divalproex Sodium 500 Mg Tablet.dr, 500 MG PO BID, (Reported) Ferrous Sulfate 325 Mg Tablet, 325 MG PO DAILY, (Reported) Hydralazine HCl 10 Mg Tablet, 10 MG PO DAILY, (Reported) Hydrocodone Bit/Acetaminophen 1 Tab Tab, 1-2 TAB PO 4-6HR PRN for PAIN Prescribed by: ISI MAHMOOD on 03/19/18 1120 Lisinopril 5 Mg Tablet, 5 MG PO DAILY, (Reported) Simvastatin 20 Mg Tablet, 20 MG PO DAILY, (Reported) Trazodone HCl 50 Mg Tablet, 50 MG PO HS, (Reported) Patient Home Medication List Home Medication List Reviewed: Yes Past Xxiauxb-Pvdpml-Kskjyj Hx Patient Social History Alcohol Use: Denies Use Recreational Drug Use: No Smoking Status: Never a Smoker Former Smoker, Quit: Oct 19, 1996 Type Used: Cigarettes Recent Foreign Travel: No Contact w/Someone Who Travel: No Recent Infectious Disease Expo: No Recent Hopitalizations: No Physical Abuse Screen: No Sexual Abuse: No Immunizations Up To Date Tetanus Booster (TDap): Unknown Date of Pneumonia Vaccine: Oct 18, 2015 Date of Influenza Vaccine: Sep 09, 2017 Seasonal Allergies Seasonal Allergies: No Surgeries History of Surgeries: Yes (SKIN LESION REMOVAL, DEFIB X2) Surgeries: Defibrillator, Pacemaker Respiratory History of Respiratory Disorde: No Cardiovascular History of Cardiac Disorders: Yes (TRISTAN MARTINEZ 1996) Cardiac Disorders: Cardiomyopathy, Coronary Artery Disease, High Cholesterol, Hypertension Neurological History of Neurological Disord: Yes Neurological Disorders: Meningitis, Seizure Disorder, Traumatic Brain Injury Reproductive System Hx Reproductive Disorders: No Sexually Transmitted Disease: No HIV/AIDS: No Genitourinary History of Genitourinary Disor: No Gastrointestinal History of Gastrointestinal Di: No Musculoskeletal History of Musculoskeletal Dis: No Endocrine History of Endocrine Disorders: No HEENT Loss of Vision: Bilateral Hearing Impairment: Denies Cancer History of Cancer: No Psychosocial History of Psychiatric Problem: No Integumentary History of Skin or Integumenta: Yes (MULTIPLE SKIN LESIONS) Blood Transfusions History of Blood Disorders: No Adverse Reaction to a Blood Tr: No (N/A) Family Medical History Significant Family History: No Pertinent Family Hx Review of Systems-General Constitutional: no symptoms reported EENTM: no symptoms reported Respiratory: no symptoms reported Cardiovascular: no symptoms reported Gastrointestinal: no symptoms reported Genitourinary: no symptoms reported Musculoskeletal: no symptoms reported Skin: see HPI Psychiatric/Neurological: No Symptoms Reported Physical Exam-General Problems Physical Exam Vital Signs Vital Signs - First Documented 12/09/18 16:20 Temp 101.9 Pulse 89 Resp 14 B/P (MAP) 145/78 (100) Pulse Ox 93 O2 Delivery Room Air Capillary Refill : Less Than 3 Seconds General Appearance: WD/WN, no apparent distress HEENT: PERRL/EOMI (left scleral hemorrhage, ecchymosis left periorbital with swelling, left eyebrow laceration repaired) Neck: non-tender, full range of motion, supple, normal inspection Respiratory: chest non-tender, no respiratory distress, no accessory muscle use Cardiovascular: regular rate, rhythm Gastrointestinal: soft, no organomegaly, tenderness (left lower quadrant) Rectal: deferred Back: no vertebral tenderness Extremities: non-tender, normal inspection, no pedal edema, no calf tenderness Neurologic/Psychiatric: 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 as tested, no motor/sensory deficits, alert, normal mood/affect Skin: normal color (abrasion left hand) Lymphatic: no adenopathy Data Review Labs Laboratory Tests 12/09/18 16:25: White Blood Count 9.9, Red Blood Count 4.47, Hemoglobin 13.2L, Hematocrit 38L, Mean Corpuscular Volume 86, Mean Corpuscular Hemoglobin 30, Mean Corpuscular Hemoglobin Concent 34, Red Cell Distribution Width 13.2, Platelet Count 178, Mean Platelet Volume 10.1, Neutrophils (%) (Auto) 77H, Lymphocytes (%) (Auto) 12 , Monocytes (%) (Auto) 10, Eosinophils (%) (Auto) 2, Basophils (%) (Auto) 0, Neutrophils # (Auto) 7.6, Lymphocytes # (Auto) 1.2, Monocytes # (Auto) 1.0, Eosinophils # (Auto) 0.2, Basophils # (Auto) 0.0, Prothrombin Time 14.3, INR Comment 1.1, Activated Partial Thromboplast Time 31, Sodium Level 139, Potassium Level 4.0, Chloride Level 102, Carbon Dioxide Level 25, Anion Gap 12, Blood Urea Nitrogen 26H, Creatinine 1.01, Estimat Glomerular Filtration Rate > 60, BUN/Creatinine Ratio 26, Glucose Level 153H, Calcium Level 9.0, Corrected Calcium 9.1, Total Bilirubin 0.5, Aspartate Amino Transf (AST/SGOT) 19, Alanine Aminotransferase (ALT/SGPT) 17, Alkaline Phosphatase 45, Total Creatine Kinase 149, Troponin I < 0.028, Total Protein 6.6, Albumin 3.9, Valproic Acid (Depakene ) Level 44.9L 12/09/18 16:35: Group A Streptococcus Screen NEGATIVE 12/09/18 16:51: Glucometer 152H 12/09/18 17:04: Lactic Acid Level 1.65 12/09/18 17:49: Urine Color YELLOW, Urine Clarity CLEAR, Urine pH 5, Urine Specific [place] 1.020, Urine Protein 3+H, Urine Glucose (UA) NEGATIVE, Urine Ketones 2+H, Urine Nitrite NEGATIVE, Urine Bilirubin NEGATIVE, Urine Urobilinogen 1, Urine Leukocyte Esterase 1+H, Urine RBC (Auto) 1+H, Urine RBC 5-10H, Urine WBC 0-2, Urine Crystals NONE, Urine Bacteria NONE, Urine Casts NONE, Urine Mucus SMALLH, Urine Culture Indicated NO 12/09/18 22:35: Troponin I 0.052 12/10/18 05:22: White Blood Count 10.1, Red Blood Count 4.15L, Hemoglobin 12.0L, Hematocrit 36L , Mean Corpuscular Volume 87, Mean Corpuscular Hemoglobin 29, Mean Corpuscular Hemoglobin Concent 33, Red Cell Distribution Width 12.9, Platelet Count 154, Mean Platelet Volume 10.4, Neutrophils (%) (Auto) 72, Lymphocytes (%) (Auto) 15 , Monocytes (%) (Auto) 11, Eosinophils (%) (Auto) 2, Basophils (%) (Auto) 0, Neutrophils # (Auto) 7.3, Lymphocytes # (Auto) 1.5, Monocytes # (Auto) 1.2H, Eosinophils # (Auto) 0.2, Basophils # (Auto) 0.0, Sodium Level 138, Potassium Level 3.5L, Chloride Level 103, Carbon Dioxide Level 24, Anion Gap 11, Blood Urea Nitrogen 24H, Creatinine 0.95, Estimat Glomerular Filtration Rate > 60, BUN /Creatinine Ratio 25, Glucose Level 130H, Calcium Level 8.5, Corrected Calcium 9.1, Total Bilirubin 0.6, Aspartate Amino Transf (AST/SGOT) 18, Alanine Aminotransferase (ALT/SGPT) 10, Alkaline Phosphatase 44, Total Protein 6.0L, Albumin 3.3 Microbiology 12/09/18 Throat Culture - Preliminary, Resulted No Beta Strep isolated Assessment/Plan Assessment/Plan Assessment/Plan Unwitnessed fall, laceration left eyebrow, abrasion left hand, diverticulitis, history of traumatic brain injury, seizures, left scleral hemorrhage Patient on Zosyn and clear liquids for now. He does have a little bit of tenderness in left lower quadrant which once resolved would advance diet. patient has not had any issues since admitted except fever. continue with medical care. No surgical intervention at this time. Clinical Quality Measures DVT/VTE Risk/Contraindication: Risk Factor Score Per Nursin RFS Level Per Nursing on Admit: 4+=Very High JOANA COCHRAN DO Dec 10, 2018 09:44
[2018-12-10] MEDS: MUPIROCIN 2% OINT 22 GM (BACTROBAN) TUBE TOP SCH ×2 (10:09→20:42)
[2018-12-10] MEDS ORDERED: DONE10TA41 PO (10:57)
[2018-12-10] MEDS ORDERED: DIVA-74 PO (10:57)
--- NOTE | 2018-12-10 10:57 | Occupational Therapy Eval ---
OT Evaluation-General/PLF Medical Diagnosis Admission Date Dec 09, 2018 at 19:10 Medical Diagnosis: unwitnessed fall vs. seizure Onset Date: Dec 09, 2018 Therapy Diagnosis Therapy Diagnosis: decreased self care skills Height/Weight Height (Feet): 5 Height (Inches): 7.00 Weight (Pounds): 198 Weight (Ounces): 11.2 Precautions Precautions/Isolations: Fall Prevention, Standard Precautions Referral Physician: Hyacinth Medical History Pertinent Medical History: CAD, HTN Additional Medical History seizure, TBI, meningitis, defibrillator, pacemaker, cardiomyopathy, high cholesterol, Current History Pt was found on a walking track. He had a laceration to the left eyebrow and abrasion to the left hand. Unwitnessed fall vs. seizure vs. syncope. Reviewed History: Yes Social History Home: Single Level Current Living Status: Alone (pt reports son checks on him) ADL-Prior Level of Function Therapy Code Descriptions/Definitions Functional [place] Measure: 0=Not Assessed/NA 4=Minimal Assistance 1=Total Assistance 5=Supervision or Setup 2=Maximal Assistance 6=Modified [place] 3=Moderate Assistance 7=Complete [place] Therapy Quality Codes: 6 Independent with activity with or without an assistive device 5 Patient requires set up or clean up by helper. Patient completes activity by themselves 4 Supervision or touching assist (CGA). [place] provide cues , steadying assist 3 The helper provides less than half the effort to complete the activity 2 The helper provides more than half the effort to complete the activity 1 Dependent. The helper does all the effort to complete an activity 7 Patient refused to complete or attempt activity 9 The patient did not perform the activity before the current illness or injury 88 Not attempted due to Medical conditions or safety concerns Functional Abilities and Goals: Independent: Patient completed the activities by him/herself, with or without an assistive device, with no assistance from a helper. Needed Some Help: Patient needed partial assistance from another person to complete activities. Dependent: A helper completed the activities for the patient. Unknown: Not Applicable: ADL PLOF Comments Pt has some difficulty providing information regarding PLOF, but states he was independent without use of adaptive equipment. Self Care: Independent Drive Self: Yes OT Current Status Subjective Pt in bed, agrees to therapy. Pt denies pain. Pt answers mostly yes/no questions. Mental Status/Objective Patient Orientation: Person, Place Unable to state date. Attachments: IV Current Hand Dominance: Right Upper Extremity ROM Grossly WFL Upper Extremity Coordination Fair Upper Extremity Strength Mildly decreased left side. Pt states this is baseline ADL-Treatment ADL-Current Pt participated in UE assessment while in supine. Pt declined to attempt sitting EOB at this time and declined to participate in ADLs. Education provided regarding role of therapy and plan of care. Pt states understanding and is in agreement with plan. Pt in bed with needs met after session. Therapy Code Descriptions/Definitions Functional [place] Measure: 0=Not Assessed/NA 4=Minimal Assistance 1=Total Assistance 5=Supervision or Setup 2=Maximal Assistance 6=Modified [place] 3=Moderate Assistance 7=Complete [place] Therapy Quality Codes: 6 Independent with activity with or without an assistive device 5 Patient requires set up or clean up by helper. Patient completes activity by themselves 4 Supervision or touching assist (CGA). [place] provide cues , steadying assist 3 The helper provides less than half the effort to complete the activity 2 The helper provides more than half the effort to complete the activity 1 Dependent. The helper does all the effort to complete an activity 7 Patient refused to complete or attempt activity 9 The patient did not perform the activity before the current illness or injury 88 Not attempted due to Medical conditions or safety concerns Education OT Patient Education: Rehab process Teaching Recipient: Patient Teaching Methods: Discussion Response to Teaching: Verbalize Understanding, Reinforcement Needed OT Short Term Goals Short Term Goals 1=Demonstrate adherence to instructed precautions during ADL tasks. 2=Patient will verbalize/demonstrate understanding of assistive devices/ modifications for ADL. 3=Patient will improve strength/tolerance for activity to enable patient to perform ADL's. OT Intermediate Goals [place] Consultant Goals Time Frame: Dec 24, 2018 Eating (FIM): 6 Grooming(FIM): 6 Bathing(FIM): 5 Upper Body Dressing(FIM): 5 Lower Body Dressing(FIM): 5 Toilet/Commode Transfer(FIM): 6 1=Demonstrate adherence to instructed precautions during ADL tasks. 2=Patient will verbalize/demonstrate understanding of assistive devices/ modifications for ADL. 3=Patient will improve strength/tolerance for activity to enable patient to perform ADL's. OT Education/Plan Problem List/Assessment Assessment: Decreased Activ Tolerance, Dependent Transfers, Impaired Funct Balance, Impaired I ADL's, Impaired Self-Care Skills Pt to benefit from skilled OT intervention for ADL training, transfers, strengthening, and education regarding home safety to increase independence and allow safe discharge plan. Discharge Recommendations Plan/Recommendations: Continue POC Treatment Plan/Plan of Care Treatment,Training & Education: Yes Patient would benefit from OT for education, treatment and training to promote independence in ADL's, mobility, safety and/or upper extremity function for ADL' s. Plan of Care: ADL Retraining, Functional Mobility, UE Funct Exercise/Act Treatment Duration: Dec 24, 2018 Frequency: 5 times per week Estimated Hrs Per Day: .25 hour per day Rehab Potential: Fair Time/GCodes Start Time: 10:05 Stop Time: 10:19 Total Time Billed (hr/min): 14 Billed Treatment Time 1 visit, PUMA(14minutes) FEMI PRESTON OT Dec 10, 2018 10:57
--- NOTE | 2018-12-10 11:16 | NUR ---
SPOKE WITH THE PATIENT ABOUT HIS MEDICATIONS. HE STATES HE DOES NOT KNOW THE NAMES OF HIS MEDS BUT HE TAKES 9 PRESCRIPTIONS. HE GETS THEM ALL FILLED AT [facility]. HE STATES HE DOES NOT TAKE ANYTHING OTC. I HAD A LIST FAXED OVER FROM [facility] AND UPDATED THE MED REC ACCORDINGLY. [facility] FILLED: 12-08-18 HYDRALAZINE 10MG DAILY #30 12-03-[address] 250MG 2 AM, 1 NOON, 1 6PM, 1 HS #150 11-26-18 DONEPEZIL 10MG DAILY #30 11-18-18 SIMVASTATIN 20MG DAILY #30 11-17-18 IRON 325MG DAILY #32 11-11-18 CARVEDILOL 6.25MG BID #60 11-11-18 TRAZODONE 50MG DAILY #30 11-11-18 LISINOPRIL 5MG DAILY #30 IN ADDITION TO WHAT [facility] FILLED THE LIST FROM DR. GLEASON'S OFFICE HAS HIM ON THE FOLLOWING: PLAVIX 75MG DAILY CENTRUM SILVER DAILY ASPIRIN 81MG DAILY FISH OIL 1000MG 2 DAILY WHEN I ASK THE PATIENT ABOUT THESE MEDS SPECIFICALLY HE STATES YES HE IS TAKING ALL OF THEM HOWEVER EARLIER WHEN I ASKED HIM HE STATED HE WAS NOT TAKING ANYTHING OTC. DR. GLEASON'S OFFICE STATES THEY DO NOT HAVE SAMPLES OF THE PLAVIX TO GIVE BUT THE PATIENT SEES DR. MANZO AND MAY RECEIVE IT THERE. I SPOKE WITH DR. MANZO'S OFFICE WHO STATES THE PATIENT REPORTED TAKING IT IN OCTOBER 2018 HOWEVER THEY HAVE NOT SENT NEW SCRIPTS SINCE MARCH 2017; [facility] HAS NOT FILLED PLAVIX SINCE APRIL 2017. I DID NOT INCLUDE THE PLAVIX ON THE MED REC AT THIS TIME. I DID ADD THE OTC MEDS TO THE MED REC REPORTED BY DR. GLEASON'S OFFICE.
[2018-12-10] MEDS ORDERED: MULT-1029 PO (11:55)
[2018-12-10] MEDS ORDERED: OMG1KC PO (11:55)
[2018-12-10] MEDS ORDERED: ASPI-983 PO (11:55)
--- NOTE | 2018-12-10 11:58 | NUR ---
CM/SS responded to consult. Patient does not feel that he has any needs at discharge, there was no family in patient room at the time. Will continue to follow.
--- NOTE | 2018-12-10 13:35 | History & Physical-Hospitalist ---
History of Present Illness HPI/Chief Complaint The patient is a 78-year-old white male known to me for at least 30 years. 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 He has had seizures previously last evening he was found down in the yard. The concern in the emergency room was that he had suffered a seizure. He allows as does his ex- that he did not have a seizure but rather fell. He struck the left side of his face on a raised piece of concrete. He also sustained an abrasion to the dorsum of the left hand and to the left patella. He was admitted for observation. Date Seen 12/10/18 Time Seen by a Provider: 13:30 Attending Physician Jaxon Estrella MD PCP Jaxon Estrella MD Referring Physician Date of Admission Dec 09, 2018 at 19:10 Home Medications & Allergies Home Medications Reviewed patient Home Medication Reconciliation performed by pharmacy medication reconciliations global position system technician and/or nursing. Patients Allergies have been reviewed. Allergies Allergies Coded Allergies No Known Drug Allergies ([id number]/17) Past Cfmrwem-Rrikpb-Tpuwic Hx Past Med/Social Hx: Reviewed Nursing Past Med/Soc Hx Patient Social History Marrital Status: Employed/Student: retired Alcohol Use: Denies Use Recreational Drug Use: No Smoking Status: Never a Smoker Former Smoker, Quit: Oct 19, 1996 Type Used: Cigarettes Physical Abuse Screen: No Sexual Abuse: No Recent Foreign Travel: No Contact w/other who traveled: No Recent Hopitalizations: No Recent Infectious Disease Expo: No Immunizations Up To Date Tetanus Booster (TDap): Unknown Date of Pneumonia Vaccine: Oct 18, 2015 Date of Influenza Vaccine: Sep 09, 2017 Seasonal Allergies Seasonal Allergies: No Past Medical History Surgeries: Defibrillator, Pacemaker Cardiac: Cardiomyopathy, Coronary Artery Disease, High Cholesterol, Hypertension Neurological: Meningitis, Seizure Disorder, Traumatic Brain Injury Reproductive: No Sexually Transmitted Disease: No HIV/AIDS: No Loss of Vision: Bilateral Hearing Impairment: Denies History of Blood Disorders: No Adverse Reaction to Blood Lynne: No (N/A) Family History No Pertinent Family Hx Review of Systems Constitutional: see HPI EENTM: no symptoms reported Respiratory: no symptoms reported Cardiovascular: no symptoms reported Gastrointestinal: no symptoms reported Genitourinary: no symptoms reported Musculoskeletal: no symptoms reported Skin: no symptoms reported Psychiatric/Neurological: No Symptoms Reported Physical Exam Physical Exam Vital Signs Vital Signs - First Documented 12/09/18 16:20 Temp 101.9 Pulse 89 Resp 14 B/P (MAP) 145/78 (100) Pulse Ox 93 O2 Delivery Room Air Capillary Refill : Less Than 3 Seconds Height, Weight, BMI Height: 5'7.00" Weight: 198lbs. 11.2oz. 90.612387kt; 31.1 BMI Method:Stated General Appearance: Mild Distress Eyes: Bilateral Eye Normal Inspection HEENT: Normal ENT Inspection Neck: Normal Inspection Respiratory: Chest Non Tender, Lungs Clear, Normal Breath Sounds, No Accessory Muscle Use, No Respiratory Distress Cardiovascular: Regular Rate, Rhythm Gastrointestinal: Normal Bowel Sounds Extremity: Normal Capillary Refill, Normal Inspection, Normal Range of Motion, Non Tender, No Calf Tenderness, No Pedal Edema Neurologic/Psychiatric: Alert Comments Resume large area of contusion and abrasion to the left anglican and maxilla. There is a periorbital hematoma and an abrasion on the left lateral nose. In addition there is an abrasion over the bulk of the dorsum of the left hand and another abrasion over the left knee. Results Results/Procedures Labs Patient resulted labs reviewed. Assessment/Plan Admission Diagnosis Fall at home. 2.abrasions and contusions to the left temporal and periorbital regions. 3.Abrasion to the dorsum of the left hand. 4.abrasion to left prepatellar region. Admission Status: Observation Clinical Quality Measures DVT/VTE Risk/Contraindication: Risk Factor Score Per Nursin RFS Level Per Nursing on Admit: 4+=Very High SHIELA MONTAÑO MD Dec 10, 2018 13:35
--- NOTE | 2018-12-10 14:07 | Physical Therapy Evaluation ---
PT Evaluation-General Medical Diagnosis Admission Date Dec 09, 2018 at 19:10 Medical Diagnosis: unwitnessed fall vs. seizure Onset Date: Dec 09, 2018 Therapy Diagnosis Therapy Diagnosis: impaired mobility, balance Height/Weight Height (Feet): 5 Height (Inches): 7.00 Weight (Pounds): 198 Weight (Ounces): 11.2 Precautions Precautions/Isolations: Fall Prevention Weight Bear Status Right Lower Extremity: Right Weight Bearing/Tolerated Left Lower Extremity: Left Weight Bearing/Tolerated Referral Physician: Shaka Claros MD Reason for Referral: Evaluation/Treatment Medical History Pertinent Medical History: CAD, HTN Additional Medical History [place] in 1996, cardiomyopathy, high cholesterol, TBI, seizure disorder, meningitis , surg (skin lesion removal, defibrillator, pacemaker) Current History patient fell on a track while walking Reviewed History: Yes Social History Home: Single Level Current Living Status: Spouse Entry Into Home: Stairs With Railing PT Steps Into Home: 3 Patient social history is unclear, a lady was in his room who said she was his spouse and that she would be able to assist him at home if he needed it. Prior/Core FIM Prior Level of Function Therapy Code Descriptions/Definitions Functional [place] Measure: 0=Not Assessed/NA 4=Minimal Assistance 1=Total Assistance 5=Supervision or Setup 2=Maximal Assistance 6=Modified [place] 3=Moderate Assistance 7=Complete [place] Therapy Quality Codes: 6 Independent with activity with or without an assistive device 5 Patient requires set up or clean up by helper. Patient completes activity by themselves 4 Supervision or touching assist (CGA). [place] provide cues , steadying assist 3 The helper provides less than half the effort to complete the activity 2 The helper provides more than half the effort to complete the activity 1 Dependent. The helper does all the effort to complete an activity 7 Patient refused to complete or attempt activity 9 The patient did not perform the activity before the current illness or injury 88 Not attempted due to Medical conditions or safety concerns Functional Abilities and Goals: Independent: Patient completed the activities by him/herself, with or without an assistive device, with no assistance from a helper. Needed Some Help: Patient needed partial assistance from another person to complete activities. Dependent: A helper completed the activities for the patient. Unknown: Not Applicable: Bed Mobility: 7 Transfers (B,C,W/C) (FIM): 7 Gait: 7 Stairs: 7 Indoor Mobility (Ambulation): Independent Stairs: Independent Patient did not use an assistive device previously but has a walker and cane at home. PT Evaluation-Current Subjective Patient in bed pre tx, agrees to PT, has no pain to report but has some facial lesions and one on his left hand and knee. Patient has trouble communicating. Pt/Family Goals none stated Objective Patient Orientation: Person, Unable to Assess ROM/Strength ROM Lower Extremities WNL Strength Lower Extremities patient could not follow directions enough to perform strength testing Neuromuscular (Tone, Coordination, Reflexes) NT. Patient seems to have left facial droop but it is hard to tell with the swelling from the fall. He cannot follow directions well enough to perform much neurological testing. Sensory Hand Dominance: Right Sensation Right Lower Extremit: Intact Sensation Left Lower Extremity: Intact Transfers Therapy Code Descriptions/Definitions Functional [place] Measure: 0=Not Assessed/NA 4=Minimal Assistance 1=Total Assistance 5=Supervision or Setup 2=Maximal Assistance 6=Modified [place] 3=Moderate Assistance 7=Complete [place] Transfers (B, C, W/C) (FIM): 5 Scootin Rollin Supine to/from Sit: 5 Sit to/from Stand: 5 Patient needed a couple of attempts to stand at the edge of the bed due to being retropulsive. Gait Mode of Locomotion: Walk Anticipated Mode of Locomotion: Walk Gait (FIM): 4 Distance: 200' Gait Level of Assist: 4 Gait Persons Needed: 1 Gait Assistive Device: None Comments/Gait Description Patient ambulated 200' with CGA and no assistive device. He was unsteady but no carmella LOB. He needs cues for direction, seems disoriented. Balance Sitting Static: Normal Sitting Dynamic: Normal Standing Static: Fair Standing Dynamic: Poor Assessment/Needs Patient has impaired mobility, and balance. Recommended to patient and "spouse " that he at least use a single point cane at home. He is at risk for a fall. Rehab Potential: Guarded PT Short Term Goals Short Term Goals Time Frame: Dec 17, 2018 Transfers (B,C,W/C) (FIM): 6 Gait (FIM): 5 Gait Distance Comment: 200' Gait Level of Assist: 5 Gait Assistive Device: FWW PT Plan Problem List Problem List: Activity Tolerance, Functional Strength, Safety, Balance, Gait, Transfer, Bed Mobility, ROM Treatment/Plan Treatment Plan: Continue Plan of Care Treatment Plan: Bed Mobility, Education, Functional Activity Kristen, Functional Strength, Gait, Safety, Therapeutic Exercise, Transfers Treatment Duration: Dec 17, 2018 Frequency: 6 times per week Estimated Hrs Per Day: .25 hour per day Patient and/or Family Agrees t: Yes Safety Risks/Education Patient Education: Gait Training, Transfer Techniques, Correct Positioning, Safety Issues Teaching Recipient: Patient Teaching Methods: Demonstration, Discussion Response to Teaching: Reinforcement Needed Discharge Recommendations Plan Patient will perform bed mobility and transfer training, balance and endurance training, functional strengthening, stair training, gait training, and education , to improve functional mobility and independence at home. Therapy D/C Recommendations: Acute Rehab, Home w/ Family Support, Correction (TCU/NH) Time/GCodes Time In: 1340 Time Out: 1400 Total Billed Treatment Time: 20 Total Billed Treatment 1 visit RENETTA HA PT Dec 10, 2018 14:07
[2018-12-10] MEDS ORDERED: PIPERACILLIN/TAZO 4.5 GM/NS 100 ML IV NR ×2 (17:45)
--- NOTE | 2018-12-10 19:35 | NUR ---
NOTIFIED DR. HASTINGS AT THIS TIME THAT PATIENT HAS HAD MULTIPLE BOUTS OF DIARRHEA AND IS C/O INCREASED ABD. PAIN. ORDERS TRAMADOL 50MG qid PRN AND IMODIUM PRN FOR LOOSE STOOLS. WILL CARRY OUT ORDERS AND CONTINUE TO MONITOR.
[2018-12-10] MEDS ORDERED: DOCUSATE SODIUM 100 MG (COLACE) CAP PO PRN (21:15)
[2018-12-10] MEDS ORDERED: ONDANSETRON 4 MG/2 ML (SDV) Z0FRAN IVP PRN (21:15)
[2018-12-10] MEDS ORDERED: CALCIUM CARBONATE 500 MG (TUMS) TAB.CHEW PO PRN (21:15)
[2018-12-10] MEDS ORDERED: diphenhydrAMINE 25 MG TAB (BENADRYL) PO PRN (21:15)
[2018-12-10] MEDS ORDERED: MELATONIN 3 MG TABLET PO PRN (21:15)
[2018-12-10] MEDS: LOPERAMIDE 2 MG (IMODIUM) CAP PO PRN (23:42)
[2018-12-11 00:11] VITALS: BP 142/71
[2018-12-11] MEDS: PIPERACILLIN SODIUM/TAZOBACTAM 4.5 GM in NS (IVPB) 100 ML IV SCH ×4 (00:11→23:59)
[2018-12-11] MEDS: GENTAMICIN 0.3% OPHTH SOLN 5 ML OS SCH ×7 (00:12→23:59)
[2018-12-11 04:43] VITALS: BP 141/67
[2018-12-11 06:29] LABS: BILIRUBIN,URINE NEGATIVE (NEGATIVE); COLOR,URINE YELLOW; GLUCOSE, URINE (UA) NEGATIVE (NEGATIVE); KETONES,URINE 2+ (NEGATIVE); NITRITE,URINE NEGATIVE (NEGATIVE); PH,URINE 6 (5-9); PROTEIN,URINE 2+ (NEGATIVE); UROBILINOGEN,URINE NORMAL (NORMAL)
[2018-12-11] MEDS: CATHETER FLUSH 10 ML SYR IV SCH ×3 (06:32→20:22)
[2018-12-11] MEDS: MULTIVIT W/MINERALS TAB (THERAGRAN M) PO SCH (06:32)
[2018-12-11 06:37] LABS: BACTERIA,URINE FEW /HPF; CLARITY,URINE SL CLOUDY; LEUKOCYTE ESTERASE ,URINE 1+ (NEGATIVE); RBC,URINE 0-2 /HPF; SQUAMOUS EPITHELIAL CELL,UR RARE /HPF
[2018-12-11 06:38] LABS: AMORPHOUS SEDIMENT,UR FEW AMOR URATES /LPF
[2018-12-11 07:59] VITALS: BP 139/73
[2018-12-11 08:45] LABS: BASOPHILS % (AUTO) 0 % (0-10); EOSINOPHILS # (AUTO) 0.3 10^3/uL (0.0-0.3); EOSINOPHILS % (AUTO) 3 % (0-10); HEMATOCRIT 37 % (40-54); HEMOGLOBIN 12.8 G/DL (13.3-17.7); LYMPHOCYTES # (AUTO) 1.1 X 10^3 (1.0-4.0); LYMPHOCYTES % (AUTO) 11 % (12-44); MEAN CORPUSCULAR HEMOGLOBIN 29 PG (25-34); MEAN CORPUSCULAR HGB CONC 34 G/DL (32-36); MEAN CORPUSCULAR VOLUME 86 FL (80-99); MEAN PLATELET VOLUME 9.7 FL (7.4-10.4); MONOCYTES # (AUTO) 1.2 X 10^3 (0.0-1.0); MONOCYTES % (AUTO) 12 % (0-12); NEUTROPHILS # (AUTO) 7.7 X 10^3 (1.8-7.8); NEUTROPHILS % (AUTO) 74 % (42-75); PLATELET COUNT 183 10^3/uL (130-400); RED BLOOD COUNT 4.37 10^6/uL (4.35-5.85); RED CELL DISTRIBUTION WIDTH 13.2 % (10.0-14.5); WHITE BLOOD COUNT 10.4 10^3/uL (4.3-11.0)
[2018-12-11] MEDS ORDERED: NON-FORMULARY MEDICATION 1 EA EA (Multivit-Min/FA/Lycopene/Lut (Centrum Silver Tablet) 1 T PO SCH (09:00)
[2018-12-11] MEDS ORDERED: HYDRALAZINE HCL 10 MG PO SCH (09:00)
[2018-12-11] MEDS ORDERED: NON-FORMULARY MEDICATION 1 EA EA (Donepezil HCl 10 MG) PO SCH (09:00)
[2018-12-11] MEDS: MUPIROCIN 2% OINT 22 GM (BACTROBAN) TUBE TOP SCH ×2 (09:01→20:22)
[2018-12-11 09:02] LABS: ALANINE AMINOTRANSFERASE 18 U/L (0-55); ALBUMIN 3.4 GM/DL (3.2-4.5); ALKALINE PHOSPHATASE 42 U/L (40-136); BILIRUBIN,TOTAL 0.5 MG/DL (0.1-1.0); BUN/CREATININE RATIO 26; CALCIUM 8.5 MG/DL (8.5-10.1); CARBON DIOXIDE 26 MMOL/L (21-32); CHLORIDE 103 MMOL/L (98-107); GFR ESTIMATED > 60; GLUCOSE 115 MG/DL (70-105); POTASSIUM 3.1 MMOL/L (3.6-5.0); SODIUM 139 MMOL/L (135-145); TOTAL PROTEIN 6.3 GM/DL (6.4-8.2)
[2018-12-11] MEDS: OMEGA 3 (FISH OIL) 1000 MG CAP PO SCH (09:02)
[2018-12-11] MEDS: DIVALPROEX 250 MG DELAYED RELEASE (DEPAKOTE) TAB PO SCH ×4 (09:02→20:22)
[2018-12-11] MEDS: FERROUS SULF 325 MG (IRON) TAB PO SCH (09:02)
[2018-12-11] MEDS: lisINopril 5 MG (PRINIVIL) TABLET PO SCH (09:02)
[2018-12-11] MEDS: SIMvastatin 20 MG (ZOCOR) TAB PO SCH (09:02)
[2018-12-11] MEDS: ASPIRIN E.C. 81 MG (ECOTRIN) TAB PO SCH (09:03)
[2018-12-11] MEDS: CARVEDILOL 6.25 MG (COREG) TAB PO SCH ×2 (09:03→20:22)
--- NOTE | 2018-12-11 09:06 | Occupational Ther Daily Note ---
OT Current Status-Daily Note Subjective Pt alert, lying down in bed. Nrsg present in room. Agrees to therapy. No c/o pain. Mental Status/Objective Patient Orientation: Person Therapy Code Descriptions/Definitions Functional [place] Measure: 0=Not Assessed/NA 4=Minimal Assistance 1=Total Assistance 5=Supervision or Setup 2=Maximal Assistance 6=Modified [place] 3=Moderate Assistance 7=Complete [place] Attachments: IV, Telemetry ADL-Treatment Pt requested to use bathroom. Ambulates to bathroom with SBA. Transfers to toilet SBA. Verbal cues to cleanse self after toileting. Standing at sink to complete grooming with SBA, no AE. Pt then ambulates back to bed. After therapy, lying in bed with call light in reach. Safety measures in place. All needs met in room. Grooming (FIM): 5 Toileting (FIM): 5 Transfers (B, C, W/C) (FIM): 5 Toilet/Commode Transfer (FIM): 5 OT Short Term Goals Short Term Goals Transfers (B,C,W/C) (FIM): 6 1=Demonstrate adherence to instructed precautions during ADL tasks. 2=Patient will verbalize/demonstrate understanding of assistive devices/ modifications for ADL. 3=Patient will improve strength/tolerance for activity to enable patient to perform ADL's. OT Gis Manager Goals Correction Goals Time Frame: Dec 24, 2018 Eating (FIM): 6 Grooming(FIM): 6 Bathing(FIM): 5 Upper Body Dressing(FIM): 5 Lower Body Dressing(FIM): 5 Toilet/Commode Transfer(FIM): 6 1=Demonstrate adherence to instructed precautions during ADL tasks. 2=Patient will verbalize/demonstrate understanding of assistive devices/ modifications for ADL. 3=Patient will improve strength/tolerance for activity to enable patient to perform ADL's. OT Education/Plan Problem List/Assessment Pt to benefit from skilled OT intervention for ADL training, transfers, strengthening, and education regarding home safety to increase independence and allow safe discharge plan. Discharge Recommendations Plan/Recommendations: Continue POC Treatment Plan/Plan of Care Patient would benefit from OT for education, treatment and training to promote independence in ADL's, mobility, safety and/or upper extremity function for ADL' s. Plan of Care: ADL Retraining, Functional Mobility, UE Funct Exercise/Act Treatment Duration: Dec 24, 2018 Frequency: 5 times per week Estimated Hrs Per Day: .25 hour per day Rehab Potential: Guarded Time/GCodes Start Time: 08:37 Stop Time: 09:00 Total Time Billed (hr/min): 23 Billed Treatment Time 1 visit-ADL 2 (23 min) JONI VALENZUELA Dec 11, 2018 09:06
--- NOTE | 2018-12-11 09:36 | Physical Therapy Daily Note ---
PT Daily Note-Current Subjective Pt was lying in bed and reported that on Saturday he walked 4 miles. He agreed to PT. Pain Numeric Pain Scale: 0-No Pain Location: No Pain Reported Mental Status Patient Orientation: Person, Normal For Age Transfers Therapy Code Descriptions/Definitions Functional [place] Measure: 0=Not Assessed/NA 4=Minimal Assistance 1=Total Assistance 5=Supervision or Setup 2=Maximal Assistance 6=Modified [place] 3=Moderate Assistance 7=Complete [place] Therapy Quality Codes: 6 Independent with activity with or without an assistive device 5 Patient requires set up or clean up by helper. Patient completes activity by themselves 4 Supervision or touching assist (CGA). [place] provide cues , steadying assist 3 The helper provides less than half the effort to complete the activity 2 The helper provides more than half the effort to complete the activity 1 Dependent. The helper does all the effort to complete an activity 7 Patient refused to complete or attempt activity 9 The patient did not perform the activity before the current illness or injury 88 Not attempted due to Medical conditions or safety concerns Transfers (B, C, W/C) (FIM): 5 Scootin Rollin Supine to/from Sit: 5 Sit to/from Stand: 5 Weight Bearing Right Lower Extremity: Right Weight Bearing/Tolerated Left Lower Extremity: Left Weight Bearing/Tolerated Gait Training Gait (FIM): 5 Distance (FIM): 3=150 ft Distance: >300' Gait Level of Assist: 5 Gait Persons Needed: 1 Gait Assistive Device: None Assessment Current Status: Fair Progress Pt was able to sit to EOB with SBA and donned socks with min A. PT noticed Pt was wheezing and Pt reported that this was new. Pt was able to amb >300' with SBA. Pt amb with wide MANUEL but at a good velocity. Pt refused to perform sitting ex reporting that he was too tired. Pt requested to get back into bed and had all needs met. PT Short Term Goals Short Term Goals Time Frame: Dec 17, 2018 Transfers (B,C,W/C) (FIM): 6 Gait (FIM): 5 Distance (FIM): 3=150 ft Gait Distance Comment: 200' Gait Level of Assist: 5 Gait Assistive Device: FWW PT Plan Problem List Problem List: Activity Tolerance, Functional Strength, Safety, Transfer, Bed Mobility Treatment/Plan Treatment Plan: Continue Plan of Care Treatment Plan: Bed Mobility, Education, Functional Activity Kristen, Functional Strength, Gait, Safety, Therapeutic Exercise, Transfers Treatment Duration: Dec 17, 2018 Frequency: 6 times per week Estimated Hrs Per Day: .25 hour per day Patient and/or Family Agrees t: Yes Time/GCodes Time In: 904 Time Out: 915 Total Billed Treatment Time: 11 Total Billed Treatment 1 visit FA 11 min MALLORY MACKEY PT Dec 11, 2018 09:36
[2018-12-11] MEDS ORDERED: KCL 10 MEQ TAB (MICRO K) PO NR (09:43)
--- NOTE | 2018-12-11 09:49 | Progress Note-Hospitalist ---
Subjective HPI/CC On Admission Date Seen by Provider: Dec 11, 2018 Time Seen by Provider: 09:15 The patient is a 78-year-old white male known to me for at least 30 years. 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 He has had seizures previously last evening he was found down in the yard. The concern in the emergency room was that he had suffered a seizure. He allows as does his ex- that he did not have a seizure but rather fell. He struck the left side of his face on a raised piece of concrete. He also sustained an abrasion to the dorsum of the left hand and to the left patella. He was admitted for observation. Subjective/Events-last exam Patient walking around fairly well with IV pole Seems to be eating and drinking better Confusion noted from prior meningitis episodes and strokes On antibiotics for acute diverticulitis Patient has multiple bruises noted Inpatient rehabilitation eval PT and OT eval Nursing has no concerns Review of Systems General: Fatigue Neurological: Confusion Focused Exam Lactate Level 12/09/18 17:04: Lactic Acid Level 1.65 Objective Exam Vital Signs Vital Signs Date Time Temp Pulse Resp B/P (MAP) Pulse Ox O2 Delivery O2 Flow Rate FiO2 12/11/18 07:59 99.6 79 20 139/73 (95) 97 Room Air Capillary Refill : Less Than 3 Seconds General Appearance: No Apparent Distress, WD/WN, Chronically ill HEENT: Other (brusing on left face) Respiratory: Chest Non Tender, Lungs Clear, Normal Breath Sounds, No Accessory Muscle Use, No Respiratory Distress Cardiovascular: Regular Rate, Rhythm, No Edema, No Gallop, No JVD, No Murmur, Normal Peripheral Pulses Neurologic/Psychiatric: Alert, No Motor/Sensory Deficits, Normal Mood/Affect, Disoriented Skin: Normal Color, Warm/Dry Results/Procedures Lab Laboratory Tests 12/11/18 08:38 Patient resulted labs reviewed. Assessment/Plan Assessment and Plan Assess & Plan/Chief Complaint Assessment: Fall due to seizure versus syncope Acute diverticulitis placed on Zosyn empirically by Dr. 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
--- NOTE | 2018-12-11 10:07 | NUR ---
IRF Evaluation: Order received to evaluate patient for the ARU. According to PT/OT Progress Notes, patient is ambulating (>300ft, no AD) and transferring with supervision, as well as completing ADLs (grooming, toileting, toilet tx) with supervision; therefore, it has been determined the patient does not require intensive therapies, at this time. Thank you for this referral.
[2018-12-11 12:00] VITALS: BP 128/86
[2018-12-11] MEDS: LOPERAMIDE 2 MG (IMODIUM) CAP PO PRN (13:18)
--- NOTE | 2018-12-11 14:04 | Progress Note ---
Subjective Date Seen by a Provider: Dec 11, 2018 Time Seen by a Provider: 14:01 Subjective/Events-last exam patient states not having any abdominal pain. tolerating diet. no new complaints. denies n/v fever sweats chills shortness of breath or chest pain. Focused Exam Lactate Level 12/09/18 17:04: Lactic Acid Level 1.65 Objective Exam Vital Signs Date Time Temp Pulse Resp B/P (MAP) Pulse Ox O2 Delivery O2 Flow Rate FiO2 12/11/18 08:00 Room Air 12/11/18 07:59 99.6 79 20 139/73 (95) 97 Room Air 12/11/18 07:01 73 12/11/18 04:43 99.3 66 20 141/67 (91) 95 Room Air 12/11/18 01:00 65 12/11/18 00:11 99.1 74 20 142/71 (94) 100 Room Air 12/10/18 20:24 99.8 75 19 138/78 (98) 98 Room Air 12/10/18 20:00 Room Air 12/10/18 18:13 100.2 12/10/18 16:16 102.3 12/10/18 16:00 102.3 75 19 135/75 (95) 98 Room Air I & O 12/11/18 07:00 Intake Total 1200 ml Output Total 400 ml Balance 800 ml Capillary Refill : Less Than 3 Seconds General Appearance: No Apparent Distress, WD/WN, Chronically ill HEENT: Other (brusing on left face, sutures left eyebrow) Neck: Normal Inspection Respiratory: Chest Non Tender, Lungs Clear, Normal Breath Sounds, No Accessory Muscle Use, No Respiratory Distress Cardiovascular: Regular Rate, Rhythm, No Edema, No Gallop, No JVD, No Murmur, Normal Peripheral Pulses Peripheral Pulses: 2+ Dorsalis Pedis (R), 2+ Left Dors-Pedis (L), 2+ Radial Pulses (R), 2+ Radial Pulses (L) Gastrointestinal: non tender, soft, no organomegaly Extremity: Normal Capillary Refill, Normal Inspection, Normal Range of Motion, Non Tender, No Calf Tenderness, No Pedal Edema Neurologic/Psychiatric: Alert, No Motor/Sensory Deficits, Normal Mood/Affect, Disoriented Skin: Normal Color, Warm/Dry Results Lab Laboratory Tests 12/11/18 06:20: Urine Color YELLOW, Urine Clarity SL CLOUDY, Urine pH 6, Urine Specific [place] 1.020, Urine Protein 2+H, Urine Glucose (UA) NEGATIVE, Urine Ketones 2+H, Urine Nitrite NEGATIVE, Urine Bilirubin NEGATIVE, Urine Urobilinogen NORMAL, Urine Leukocyte Esterase 1+H, Urine RBC (Auto) 2+H, Urine RBC 0-2, Urine WBC 2-5, Urine Squamous Epithelial Cells RARE, Urine Crystals PRESENTH, Urine Amorphous Sediment FEW SHIELA URATESH, Urine Bacteria FEWH, Urine Casts NONE, Urine Mucus SMALLH, Urine Culture Indicated YES 12/11/18 08:38: White Blood Count 10.4, Red Blood Count 4.37, Hemoglobin 12.8L, Hematocrit 37L, Mean Corpuscular Volume 86, Mean Corpuscular Hemoglobin 29, Mean Corpuscular Hemoglobin Concent 34, Red Cell Distribution Width 13.2, Platelet Count 183, Mean Platelet Volume 9.7, Neutrophils (%) (Auto) 74, Lymphocytes (%) (Auto) 11L , Monocytes (%) (Auto) 12, Eosinophils (%) (Auto) 3, Basophils (%) (Auto) 0, Neutrophils # (Auto) 7.7, Lymphocytes # (Auto) 1.1, Monocytes # (Auto) 1.2H, Eosinophils # (Auto) 0.3, Basophils # (Auto) 0.0, Sodium Level 139, Potassium Level 3.1L, Chloride Level 103, Carbon Dioxide Level 26, Anion Gap 10, Blood Urea Nitrogen 23H, Creatinine 0.90, Estimat Glomerular Filtration Rate > 60, BUN /Creatinine Ratio 26, Glucose Level 115H, Calcium Level 8.5, Corrected Calcium 9.0, Total Bilirubin 0.5, Aspartate Amino Transf (AST/SGOT) 23, Alanine Aminotransferase (ALT/SGPT) 18, Alkaline Phosphatase 42, Total Protein 6.3L, Albumin 3.4 Microbiology 12/09/18 Blood Culture - Preliminary, Resulted No growth 12/09/18 Throat Culture - Preliminary, Resulted No Beta Strep isolated 12/09/18 Urine Culture - Final, Complete NO GROWTH Assessment/Plan Assessment/Plan Assessment/Plan Unwitnessed fall, laceration left eyebrow, abrasion left hand, diverticulitis, history of traumatic brain injury, seizures, left scleral hemorrhage Patient on Zosyn. Advance diet as tolerates. Continue with medical care. No surgical intervention at this time. Clinical Quality Measures DVT/VTE Risk/Contraindication: Risk Factor Score Per Nursin RFS Level Per Nursing on Admit: 4+=Very High JOANA COCHRAN DO Dec 11, 2018 14:04
[2018-12-11 17:00] VITALS: BP 140/67
--- NOTE | 2018-12-11 17:17 | NUR ---
Pt. tolerated soft diet well at lunch time, would like to try to have solids for dinner. Per Dr. Conner's note, the diet was advanced to regular for dinner.
[2018-12-11 20:00] VITALS: BP 155/74
[2018-12-11] MEDS ORDERED: traZODone 50 MG (DESYREL) TAB PO SCH (21:00)
[2018-12-11] MEDS ORDERED: DONEPEZIL 10 MG (ARICEPT) TAB PO SCH (21:00)
[2018-12-12 00:35] VITALS: BP 135/74
[2018-12-12] MEDS: GENTAMICIN 0.3% OPHTH SOLN 5 ML OS SCH ×3 (03:47→11:42)
[2018-12-12 03:51] VITALS: BP 139/68
[2018-12-12] MEDS: CATHETER FLUSH 10 ML SYR IV SCH ×2 (05:41→11:42)
[2018-12-12] MEDS: MULTIVIT W/MINERALS TAB (THERAGRAN M) PO SCH (05:41)
[2018-12-12] MEDS ORDERED: KCL 10 MEQ TAB (MICRO K) PO SCH (07:00)
[2018-12-12 08:00] VITALS: BP 135/70
[2018-12-12] MEDS: SIMvastatin 20 MG (ZOCOR) TAB PO SCH (08:21)
[2018-12-12] MEDS: FERROUS SULF 325 MG (IRON) TAB PO SCH (08:21)
[2018-12-12] MEDS: CARVEDILOL 6.25 MG (COREG) TAB PO SCH (08:21)
[2018-12-12] MEDS: lisINopril 5 MG (PRINIVIL) TABLET PO SCH (08:21)
[2018-12-12] MEDS: PIPERACILLIN SODIUM/TAZOBACTAM 4.5 GM in NS (IVPB) 100 ML IV SCH (08:21)
[2018-12-12] MEDS: ASPIRIN E.C. 81 MG (ECOTRIN) TAB PO SCH (08:22)
[2018-12-12] MEDS: DIVALPROEX 250 MG DELAYED RELEASE (DEPAKOTE) TAB PO SCH ×2 (08:22→11:41)
[2018-12-12] MEDS: OMEGA 3 (FISH OIL) 1000 MG CAP PO SCH (08:22)
[2018-12-12] MEDS: MUPIROCIN 2% OINT 22 GM (BACTROBAN) TUBE TOP SCH (08:23)
--- NOTE | 2018-12-12 10:15 | Physical Therapy Daily Note ---
PT Daily Note-Current Subjective Pt was using bathroom and used call light when completed. Pt agreed to PT. PT was told by nursing that pt would most likely be dismissed today. Pain Numeric Pain Scale: 0-No Pain Location: No Pain Reported Mental Status Patient Orientation: Person, Normal For Age Attachments: IV Transfers Therapy Code Descriptions/Definitions Functional [place] Measure: 0=Not Assessed/NA 4=Minimal Assistance 1=Total Assistance 5=Supervision or Setup 2=Maximal Assistance 6=Modified [place] 3=Moderate Assistance 7=Complete [place] Therapy Quality Codes: 6 Independent with activity with or without an assistive device 5 Patient requires set up or clean up by helper. Patient completes activity by themselves 4 Supervision or touching assist (CGA). [place] provide cues , steadying assist 3 The helper provides less than half the effort to complete the activity 2 The helper provides more than half the effort to complete the activity 1 Dependent. The helper does all the effort to complete an activity 7 Patient refused to complete or attempt activity 9 The patient did not perform the activity before the current illness or injury 88 Not attempted due to Medical conditions or safety concerns Transfers (B, C, W/C) (FIM): 5 Sit to/from Stand: 5 Weight Bearing Right Lower Extremity: Right Weight Bearing/Tolerated Left Lower Extremity: Left Weight Bearing/Tolerated Gait Training Gait (FIM): 5 Distance (FIM): 3=150 ft Distance: >300' Gait Level of Assist: 5 Gait Persons Needed: 1 Gait Assistive Device: None Assessment Current Status: Fair Progress Pt is SBA from toilet <> stand. Pt required min A with toileting skills. Pt was able to amb >300' with x2 90 degree turns SBA. Pt is now in recliner with breakfast and all needs met. PT Short Term Goals Short Term Goals Time Frame: Dec 17, 2018 Transfers (B,C,W/C) (FIM): 6 Gait (FIM): 5 Distance (FIM): 3=150 ft Gait Distance Comment: 200' Gait Level of Assist: 5 Gait Assistive Device: FWW PT Plan Problem List Problem List: Activity Tolerance, Functional Strength, Safety Treatment/Plan Treatment Plan: Discontinue PT Treatment Plan: Bed Mobility, Education, Functional Activity Kristen, Functional Strength, Gait, Safety, Therapeutic Exercise, Transfers Treatment Duration: Dec 17, 2018 Frequency: 6 times per week Estimated Hrs Per Day: .25 hour per day Patient and/or Family Agrees t: Yes Time/GCodes Time In: 0951 Time Out: 1004 Total Billed Treatment Time: 13 Total Billed Treatment 1 visit FA 13 min MALLORY MACKEY PT Dec 12, 2018 10:15
[2018-12-12] MEDS ORDERED: FLU QUADRIvalent (5+ YOA) 2018-2019 (AFLURIA) 0.5 ML IM ONE (10:45)
--- NOTE | 2018-12-12 10:50 | Progress Note ---
Subjective Date Seen by a Provider: Dec 12, 2018 Time Seen by a Provider: 10:46 Subjective/Events-last exam Patient feeling good. No abdominal pain. tolerating diet. no n/v no new complaints Focused Exam Lactate Level 12/09/18 17:04: Lactic Acid Level 1.65 Objective Exam Vital Signs Date Time Temp Pulse Resp B/P (MAP) Pulse Ox O2 Delivery O2 Flow Rate FiO2 12/12/18 08:00 Room Air 12/12/18 08:00 96.4 62 18 135/70 (91) 94 Room Air 12/12/18 03:51 97.8 71 20 139/68 (91) 98 Room Air 12/12/18 00:35 98.9 74 20 135/74 (94) 97 Room Air 12/11/18 20:00 Room Air 12/11/18 20:00 99.4 71 20 155/74 (101) 95 Room Air 12/11/18 17:00 98.7 62 18 140/67 (91) 97 Room Air 12/11/18 12:00 98.3 72 20 128/86 (100) 93 Room Air I & O 12/12/18 07:00 Intake Total 1000 ml Output Total 1700 ml Balance -700 ml Capillary Refill : Less Than 3 Seconds General Appearance: No Apparent Distress, WD/WN, Chronically ill HEENT: Other (brusing on left face, sutures left eyebrow, left scleral hemorrhage) Neck: Normal Inspection Respiratory: Chest Non Tender, No Accessory Muscle Use, No Respiratory Distress Cardiovascular: Regular Rate, Rhythm, No Edema, No Gallop, No JVD, No Murmur, Normal Peripheral Pulses Peripheral Pulses: 2+ Dorsalis Pedis (R), 2+ Left Dors-Pedis (L), 2+ Radial Pulses (R), 2+ Radial Pulses (L) Gastrointestinal: non tender, soft, no organomegaly Extremity: Normal Capillary Refill, Normal Inspection, Normal Range of Motion, Non Tender, No Calf Tenderness, No Pedal Edema Neurologic/Psychiatric: Alert, No Motor/Sensory Deficits, Normal Mood/Affect, Disoriented Skin: Normal Color, Warm/Dry Results Lab Microbiology 12/09/18 Blood Culture - Preliminary, Resulted No growth 12/09/18 Throat Culture - Final, Complete No Beta Strep isolated 12/11/18 Urine Culture - Final, Complete NO GROWTH Assessment/Plan Assessment/Plan Assessment/Plan Unwitnessed fall, laceration left eyebrow, abrasion left hand, diverticulitis, history of traumatic brain injury, seizures, left scleral hemorrhage Patient on Zosyn. Advance diet as tolerates. Continue with medical care. No surgical intervention at this time. Clinical Quality Measures DVT/VTE Risk/Contraindication: Risk Factor Score Per Nursin RFS Level Per Nursing on Admit: 4+=Very High JOANA COCHRAN DO Dec 12, 2018 10:50
--- NOTE | 2018-12-12 11:45 | NUR ---
Swing Bed Note: Qualifies for swing bed for continued need for IV abx (Diverticulitis) with continued advancing diet, Physical, Occupational, Speech therapies d/t recent fall.
--- NOTE | 2018-12-12 11:47 | Occupational Ther Daily Note ---
OT Current Status-Daily Note Subjective Pt alert, lying in bed. Ex- present in room, asking questions about swingbed, stating that she didn't think pt could go home. ARGUELLO attempted to answer questions then reported to nrsg. Mental Status/Objective Patient Orientation: Person, Place Therapy Code Descriptions/Definitions Functional [place] Measure: 0=Not Assessed/NA 4=Minimal Assistance 1=Total Assistance 5=Supervision or Setup 2=Maximal Assistance 6=Modified [place] 3=Moderate Assistance 7=Complete [place] Other Treatment Pt chose to complete UE exercises sitting in recliner. Independent with bed mobility, SBA for ambulating to recliner assisting with IV pole and tubing. Pt completed 2 sets 15 reps of UE exercises without difficulty. 15 arm chair pushups. Pt instructed to complete exercises throughout the day. After therapy , pt sitting in recliner with call light/phone in reach. Safety measures in place. All needs met in room. OT Short Term Goals Short Term Goals Transfers (B,C,W/C) (FIM): 6 1=Demonstrate adherence to instructed precautions during ADL tasks. 2=Patient will verbalize/demonstrate understanding of assistive devices/ modifications for ADL. 3=Patient will improve strength/tolerance for activity to enable patient to perform ADL's. OT Chcf Goals Chcf Goals Time Frame: Dec 24, 2018 Eating (FIM): 6 Grooming(FIM): 6 Bathing(FIM): 5 Upper Body Dressing(FIM): 5 Lower Body Dressing(FIM): 5 Toilet/Commode Transfer(FIM): 6 1=Demonstrate adherence to instructed precautions during ADL tasks. 2=Patient will verbalize/demonstrate understanding of assistive devices/ modifications for ADL. 3=Patient will improve strength/tolerance for activity to enable patient to perform ADL's. OT Education/Plan Problem List/Assessment Pt to benefit from skilled OT intervention for ADL training, transfers, strengthening, and education regarding home safety to increase independence and allow safe discharge plan. Discharge Recommendations Plan/Recommendations: Continue POC Treatment Plan/Plan of Care Patient would benefit from OT for education, treatment and training to promote independence in ADL's, mobility, safety and/or upper extremity function for ADL' s. Plan of Care: ADL Retraining, Functional Mobility, UE Funct Exercise/Act Treatment Duration: Dec 24, 2018 Frequency: 5 times per week Estimated Hrs Per Day: .25 hour per day Rehab Potential: Guarded Time/GCodes Start Time: 11:18 Stop Time: 11:33 Total Time Billed (hr/min): 15 Billed Treatment Time 1 visit-EX 1 (15 min) JONI VALENZUELA Dec 12, 2018 11:47
--- NOTE | 2018-12-12 11:47 | Discharge Summary-Hospitalist ---
Diagnosis/Chief Complaint Date of Admission Dec 09, 2018 at 19:10 Date of Discharge Discharge Date: Dec 12, 2018 Admission Diagnosis Fall at home. 2.abrasions and contusions to the left temporal and periorbital regions. 3.Abrasion to the dorsum of the left hand. 4.abrasion to left prepatellar region. Discharge Diagnosis (1) UNWITTNESSED FALL VS SEIZURE VS SYNCOPE Status: Acute (2) FACIAL/PERIORBITAL HEMATOMA Status: Acute (3) Diverticulitis Status: Acute (4) Fever Status: Resolved (5) Dehydration Status: Resolved Discharge Summary Discharge Physical Exam Allergies: Coded Allergies: No Known Drug Allergies (Unverified , 09/18/17) Vitals & I&Os Vital Signs Date Time Temp Pulse Resp B/P (MAP) Pulse Ox O2 Delivery O2 Flow Rate FiO2 12/12/18 12:00 97.3 68 18 115/55 (75) 95 Room Air General Appearance: No Apparent Distress, WD/WN, Chronically ill Respiratory: Chest Non Tender, Lungs Clear, Normal Breath Sounds, No Accessory Muscle Use, No Respiratory Distress Cardiovascular: Regular Rate, Rhythm, No Edema, No Gallop, No JVD, No Murmur, Normal Peripheral Pulses Gastrointestinal: Normal Bowel Sounds, No Organomegaly, No Pulsatile Mass, Non Tender, Soft Neurologic/Psychiatric: Alert, No Motor/Sensory Deficits, Normal Mood/Affect, Disoriented Hospital Course Hospital course: Patient had a standard hospital course after she was admitted due to an unwitnessed fall found to have orbital hematoma but on further evaluation noted acute diverticulitis so he was placed on IV fluids nothing by mouth status and general surgery consultation. Fever persisted due to the acute diverticulitis bacterial infection but that eventually resolved. Due to the chronic neurologic deficit from prior meningitis episodes and strokes he had difficulty recovering and required swing bed status to complete IV antibiotics of Zosyn and help recovering ultimately to return home as the family intends to live alone independently. I am hoping that we can obtain some sort of skilled care for him due to the fact that he appears to be very unstable and high risk for more unwitnessed falls. Overall chronic illness noted but unsure how much we can modify and improve upon prior to discharge. Labs (last 24 hrs) Microbiology 12/09/18 Blood Culture - Preliminary, Resulted No growth 12/09/18 Throat Culture - Final, Complete No Beta Strep isolated 12/11/18 Urine Culture - Final, Complete NO GROWTH Patient resulted labs reviewed. Discussion & Recommendations Discharge Planning: <30 minutes discharge planning Discharge Home Medications: Active Scripts Active Reported Fish Oil 1,000 mg Capsule ([place] 3 Polyunsat Fatty Acids) 1,000 Mg Cap 2,000 Mg PO DAILY Aspirin EC (Aspirin) 81 Mg Tablet.dr 81 Mg PO DAILY Centrum Silver Tablet (Multivit-Min/FA/Lycopene/Lut) 1 Each Tablet 1 Tab PO DAILY Donepezil HCl 10 Mg Tablet 10 Mg PO DAILY Divalproex Sodium 250 Mg Tablet.dr 250 Mg PO 1200,1800,2100 Hydralazine HCl 10 Mg Tablet 10 Mg PO DAILY Divalproex Sodium 250 Mg Tablet.dr 500 Mg PO 0800 TAKES 2 (250MG) TABLETS Carvedilol 6.25 Mg Tablet 6.25 Mg PO BID Trazodone HCl 50 Mg Tablet 50 Mg PO HS Simvastatin 20 Mg Tablet 20 Mg PO DAILY Lisinopril 5 Mg Tablet 5 Mg PO DAILY Ferrous Sulfate 325 Mg Tablet 325 Mg PO DAILY Instructions to patient/family Please see electronic discharge instructions given to patient. Clinical Quality Measures DVT/VTE Risk/Contraindication: Risk Factor Score Per Nursin RFS Level Per Nursing on Admit: 4+=Very High Problem Qualifiers (1) Fever: Fever type: unspecified Qualified Codes: R50.9 - Fever, unspecified ASHLEY SALOMON DO Dec 12, 2018 11:47
[2018-12-12 12:00] VITALS: BP 115/55
== END 2018-12-12 12:30 | disposition swing bed (61) | DRG 988 ==
LOC: EDUNIT# 16:18 → ER 16:19 → 4TH 19:10
PROVIDERS: ADMIT Internal Medicine; ATTEND Internal Medicine
PROC: 0JQ10ZZ Repair Face Subcutaneous Tissue and Fascia, Open Approach (ICD-10-PCS; principal; 2018-12-09)
DX: K57.92 Diverticulitis of intestine, part unspecified, without perforation or abscess without bleeding (principal); S01.112A Laceration without foreign body of left eyelid and periocular area, initial encounter; S05.8X2A Other injuries of left eye and orbit, initial encounter; S00.83XA Contusion of other part of head, initial encounter; S60.512A Abrasion of left hand, initial encounter; S05.02XA Injury of conjunctiva and corneal abrasion without foreign body, left eye, initial encounter; S80.02XA Contusion of left knee, initial encounter; S80.01XA Contusion of right knee, initial encounter; S00.31XA Abrasion of nose, initial encounter; S00.81XA Abrasion of other part of head, initial encounter; I25.10 Atherosclerotic heart disease of native coronary artery without angina pectoris; G40.909 Epilepsy, unspecified, not intractable, without status epilepticus; E86.0 Dehydration; E78.00 Pure hypercholesterolemia, unspecified; I10 Essential (primary) hypertension; I34.0 Nonrheumatic mitral (valve) insufficiency; I25.5 Ischemic cardiomyopathy; I25.2 Old myocardial infarction; W19.XXXA Unspecified fall, initial encounter; Y93.01 Activity, walking, marching and hiking; Z87.820 Personal history of traumatic brain injury; Z86.61 Personal history of infections of the central nervous system; Z87.891 Personal history of nicotine dependence; Z95.810 Presence of automatic (implantable) cardiac defibrillator
CPT/HCPCS: 36415; 70450; 70486; 71045; 71260; 72125; 72170; 73130; 74177; 80053; 80164; 81000; 82550; 82962; 83605; 84484; 85025; 85610; 85730; 87040; 87088; 87430; 87804; 90471; 90715; 93005; 96361; 96365

== ENCOUNTER 2018-12-12 11:53 | Inpatient (IN) | payer MEDICARE ==
[~2018-12-12] VITALS: Ht 170.2 cm; Wt 90.1 kg
[~2018-12-12 11:53] MED LIST changes: +ASPI-983 PO; +DONE10TA41 PO; +MULT-1029 PO; +OMG1KC PO
--- NOTE | 2018-12-12 12:30 | NUR ---
ALISHA EAST admitted to swing bed status to room 405-1, with an admitting diagnosis of SWB, DIVERTICULITIS, S/P FALL, on 12/12/18 from acute inpatient status. PT,OT,SPEECH Therapy to evaluate patient for activity needs. ALSIHA EAST introduced to surroundings, call light, bed controls, phone, TV, temperature control, lights, meal times, smoking policy, visitor policy, side rail policy, bathrooms, and showers. Patient rights given to patient in the handbook.. ALISHA EAST and/or family member verbalized understanding that [facility] is not responsible for the loss or damage to any personal effects or valuables that are kept in the patients possession during their hospitalization. ALISHA EAST and/or family verbalizes understanding of the Interdisciplinary Patient Education. Patient and/or family were informed about the Rapid Response Team and its purpose. Call light with in reach and patient demonstrates understanding of how to use. ALISHA EAST reports no further needs at this time.
--- NOTE | 2018-12-12 12:30 | NUR ---
Admission Drug Regimen Review Completed: Date: 12/12/18 Time: 134 Physician Notified: ASHLEY SALOMON DO Date: 12/12/18 Time: 1348 Issue Identified; Action Plan to Resolve and Any Action Taken: Divalproex Delay Release Tablet 250mg PO at 12,18,21 did not carry over to the new swing bed account. Medication was put back in per doctors order. No further interventions needed.
--- NOTE | 2018-12-12 12:35 | NUR ---
PHYSICAL ASSESSMENT UNCHANGED FROM INPATIENT ACUTE STATUS. THIS RN WILL CONTINUE TO MONITOR PT'S STATUS.
[2018-12-12] MEDS ORDERED: DOCUSATE SODIUM 100 MG (COLACE) CAP PO PRN (12:45)
[2018-12-12] MEDS ORDERED: CALCIUM CARBONATE 500 MG (TUMS) TAB.CHEW PO PRN (12:45)
[2018-12-12] MEDS ORDERED: ONDANSETRON 4 MG/2 ML (SDV) Z0FRAN IVP PRN (12:45)
[2018-12-12] MEDS ORDERED: LOPERAMIDE 2 MG (IMODIUM) CAP PO PRN (12:45)
[2018-12-12] MEDS ORDERED: LORazepam INJ 2 MG/ML (ATIVAN) VIAL IV PRN (12:45)
[2018-12-12] MEDS ORDERED: PIPERACILLIN SODIUM/TAZOBACTAM 4.5 GM in NS (IVPB) 100 ML IV SCH (12:45)
[2018-12-12] MEDS ORDERED: CATHETER FLUSH 10 ML SYR IV PRN (12:45)
[2018-12-12] MEDS ORDERED: ACETAMINOPHEN 500 MG TAB (TYLENOL) PO PRN (12:45)
[2018-12-12] MEDS ORDERED: diphenhydrAMINE 25 MG TAB (BENADRYL) PO PRN (12:45)
[2018-12-12] MEDS ORDERED: MELATONIN 3 MG TABLET PO PRN (12:45)
--- NOTE | 2018-12-12 13:26 | Physical Therapy Evaluation ---
PT Evaluation-General Medical Diagnosis Admission Date Dec 12, 2018 at 12:40 Medical Diagnosis: unwittnessed fall Onset Date: Dec 08, 2018 Therapy Diagnosis Therapy Diagnosis: debility Height/Weight Height (Feet): 5 Height (Inches): 7.00 Weight (Pounds): 198 Weight (Ounces): 11.2 Precautions Precautions/Isolations: Fall Prevention, Standard Precautions Weight Bear Status Right Lower Extremity: Right Weight Bearing/Tolerated Left Lower Extremity: Left Weight Bearing/Tolerated Referral Physician: Marily Reason for Referral: Evaluation/Treatment Medical History Pertinent Medical History: CAD, HTN, TBI Additional Medical History seizures Current History SWB status Reviewed History: Yes Social History Home: Apartment Current Living Status: Alone Entry Into Home: Stairs With Railing PT Steps Into Home: 2 Prior/Core FIM Prior Level of Function Therapy Code Descriptions/Definitions Functional [place] Measure: 0=Not Assessed/NA 4=Minimal Assistance 1=Total Assistance 5=Supervision or Setup 2=Maximal Assistance 6=Modified [place] 3=Moderate Assistance 7=Complete [place] Therapy Quality Codes: 6 Independent with activity with or without an assistive device 5 Patient requires set up or clean up by helper. Patient completes activity by themselves 4 Supervision or touching assist (CGA). [place] provide cues , steadying assist 3 The helper provides less than half the effort to complete the activity 2 The helper provides more than half the effort to complete the activity 1 Dependent. The helper does all the effort to complete an activity 7 Patient refused to complete or attempt activity 9 The patient did not perform the activity before the current illness or injury 88 Not attempted due to Medical conditions or safety concerns Functional Abilities and Goals: Independent: Patient completed the activities by him/herself, with or without an assistive device, with no assistance from a helper. Needed Some Help: Patient needed partial assistance from another person to complete activities. Dependent: A helper completed the activities for the patient. Unknown: Not Applicable: Bed Mobility: 7 Transfers (B,C,W/C) (FIM): 7 Gait: 7 Stairs: 6 Indoor Mobility (Ambulation): Independent Stairs: Independent Prior Devices Use: None PT Evaluation-Current Subjective Patient appears confused this p.m., however, agrees to PT. Pain Numeric Pain Scale: 0-No Pain Location: No Pain Reported Objective Patient Orientation: Confused Problem Solving: Fair ROM/Strength ROM Lower Extremities bilateral LE WFL Strenght Lower Extremities 4+/5 grossly bilateral LE Integumentary/Posture Integumentary multiple contusions/abrasions left side of face and hand Bowel Incontinence: No Bladder Incontinence: No Posture WFL Neuromuscular (Tone, Coordination, Reflexes) grossly intact/noted WBOS with gait secondary to TBI with diminished proprioception Sensory Vision: Functional Hearing: Functional Sensation Right Lower Extremit: Intact Sensation Left Lower Extremity: Intact Transfers Therapy Code Descriptions/Definitions Functional [place] Measure: 0=Not Assessed/NA 4=Minimal Assistance 1=Total Assistance 5=Supervision or Setup 2=Maximal Assistance 6=Modified [place] 3=Moderate Assistance 7=Complete [place] Therapy Quality Codes: 6 Independent with activity with or without an assistive device 5 Patient requires set up or clean up by helper. Patient completes activity by themselves 4 Supervision or touching assist (CGA). [place] provide cues , steadying assist 3 The helper provides less than half the effort to complete the activity 2 The helper provides more than half the effort to complete the activity 1 Dependent. The helper does all the effort to complete an activity 7 Patient refused to complete or attempt activity 9 The patient did not perform the activity before the current illness or injury 88 Not attempted due to Medical conditions or safety concerns Transfers (B, C, W/C) (FIM): 7 Scootin Rollin Roll Left to Right (QC): 6 Supine to/from Sit: 7 Sit to/from Stand: 7 Sit to Lying (QC): 6 Lying to Sitting/Side of Bed(Q: 6 Sit to Stand (QC): 6 Chair/Ywd-ei-Ipmlb Xfer(QC): 6 Car Transfer (QC): 6 Patient does require bed and chair alarm secondary to diminished safety awareness, however, performs tasks independently Gait Does the Patient Walk?: Yes Mode of Locomotion: Walk Anticipated Mode of Locomotion: Walk Gait (FIM): 5 Distance (FIM): 3=150 ft Walk 10 feet (QC): 6 Walk 50 ft with 2 Turns(QC): 6 Walk 150 ft (QC): 6 Walking 10ft/uneven surface-QC: 6 Distance: >800' Gait Level of Assist: 5 (actually independent, however, due to inpatient setting, requires SBA for safety) Gait Assistive Device: None Comments/Gait Description WBOS due 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 male, is currently at [facility] with grossly motor skills. He does display slight confusion this p.m. PT will see patient, short term, to address functional mobility. Rehab Potential: Fair Post Rehab Potential-Barriers: seizures/TBI PT Cleaning Specialist Goals Cleaning Specialist Goals PT Cleaning Specialist Goals Time Frame: Dec 19, 2018 Transfers (B,C,W/C) (FIM): 7 Sit to Lying (QC): 6 Lying-Sitting on Side/Bed(QC): 6 Sit to Stand (QC): 6 Rollin Roll Left to Right (QC): 6 Chair/Rft-yb-Vgxnx Xfer(QC): 6 Car Transfer (QC): 6 Does the Patient Walk: Yes Gait (FIM): 7 Gait distance (FIM): 3=150 ft Walk 10 feet (QC): 6 Walk 10ft-Uneven Surface(QC): 6 Walk 50ft with 2 Turns (QC): 6 Walk 150 ft (QC): 6 Gait Level of Assist: 7 Gait Assistive Device: None PT Plan Treatment/Plan Treatment Plan: Continue Plan of Care Treatment Plan: Education, Functional Activity Kristen, Functional Strength, Gait , Safety, Therapeutic Exercise, Transfers Treatment Duration: Dec 19, 2018 Frequency: 6 times per week Estimated Hrs Per Day: .25 hour per day Patient and/or Family Agrees t: Yes Time/GCodes Time In: 1255 Time Out: 1318 Total Billed Treatment Time: 23 Total Billed Treatment 1 visit EVModC 8 min FA 15 min MALLORY MACKEY PT Dec 12, 2018 13:26
--- NOTE | 2018-12-12 14:50 | Occupational Therapy Eval ---
OT Evaluation-General/PLF Medical Diagnosis Admission Date Dec 12, 2018 at 12:40 Medical Diagnosis: unwittnessed fall Onset Date: Dec 08, 2018 Therapy Diagnosis Therapy Diagnosis: Weakness Height/Weight Height (Feet): 5 Height (Inches): 7.00 Weight (Pounds): 198 Weight (Ounces): 11.2 Precautions Precautions/Isolations: Fall Prevention, Standard Precautions Safety Interventions: Bed Exit Alarm Referral Physician: Marily Referral Reason: Activity Tolerance, Self Care, Evaluation/Treatment, Strengthening/ROM Medical History Pertinent Medical History: CAD, HTN, TBI Additional Medical History Cardiomyopathy, Dehydration,Diverticulitis, Laceration of face, Abration of Left Conjectiva, Unwitnessed fall, Facial periorbital HematomaMenningitis, Deaf with Left ear Current History Pt fell on the concrete surface near his house when he had gone out for walk., has laceration of face abration of left conjectiva & facial peritonial hematoma. Reviewed History: Yes Social History Home: Single Level Current Living Status: Alone Entry Into Home: Stairs With Railing Steps Into Home: 2 ADL-Prior Level of Function Therapy Code Descriptions/Definitions Functional [place] Measure: 0=Not Assessed/NA 4=Minimal Assistance 1=Total Assistance 5=Supervision or Setup 2=Maximal Assistance 6=Modified [place] 3=Moderate Assistance 7=Complete [place] Therapy Quality Codes: 6 Independent with activity with or without an assistive device 5 Patient requires set up or clean up by helper. Patient completes activity by themselves 4 Supervision or touching assist (CGA). [place] provide cues , steadying assist 3 The helper provides less than half the effort to complete the activity 2 The helper provides more than half the effort to complete the activity 1 Dependent. The helper does all the effort to complete an activity 7 Patient refused to complete or attempt activity 9 The patient did not perform the activity before the current illness or injury 88 Not attempted due to Medical conditions or safety concerns Functional Abilities and Goals: Independent: Patient completed the activities by him/herself, with or without an assistive device, with no assistance from a helper. Needed Some Help: Patient needed partial assistance from another person to complete activities. Dependent: A helper completed the activities for the patient. 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 Functional Cognition: Needed Some Help DME/Equipment Comments None Pt was Independent without AD. 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 Drive Self: Yes OT Current Status Subjective Pt stated that I fell & thus have injury on my Left hand & forehead. Pain Numeric Pain Scale: 0-No Pain Mental Status/Objective Patient Orientation: Person, Place, Time, Normal For Age Current Glasses/Contacts: Yes Hearing Aids: No Hand Dominance: Right Upper Extremity ROM WFL Upper Extremity Coordination INTACT Upper Extremity Sensation Intact Upper Extremity Strength MS in BUE -4/5 grossaly graded. ADL-Treatment Eating (FIM): 7 Eating (QC): 7 Grooming (FIM): 5 Oral Hygiene (QC): 4 Bathing (FIM): 0 Shower/Bathe Self (QC): 0 Upper Body Dressing (FIM): 5 Upper Body Dressing (QC): 5 Lower Body Dressing (FIM): 3 Lower Body Dressing (QC): 3 Transfers (B, C, W/C) (FIM): 5 Toilet/Commode Transfer (FIM): 5 Toilet Transfer (QC): 5 Education OT Patient Education: Correct positioning, Instructions to caregiver Teaching Recipient: Patient, Primary Caregiver Teaching Methods: Demonstration, Discussion Response to Teaching: Verbalize Understanding, Return Demonstration, Reinforcement Needed OT Short Term Goals Short Term Goals Time Frame: Dec 26, 2018 Eating(FIM): 7 Grooming(FIM): 6 Bathing(FIM): 5 Bathing Location: L Arm, R Arm, L Upper Leg, R Upper Leg, L Lower Leg ( including foot), R Lower Leg (including foot), Chest, Abdomen, Buttocks, Perineal Area Upper Body Dressing(FIM): 6 Lower Body Dressing(FIM): 5 Toileting(FIM): 5 Transfers (B,C,W/C) (FIM): 6 Toilet/Commode Transfer(FIM): 6 Shower Transfer(FIM): 6 Additional Short Term Goals: 1-Demonstrate ADL Tasks, 2-Verbalize Understanding , 3-ImproveStrength/Kristen 1=Demonstrate adherence to instructed precautions during ADL tasks. 2=Patient will verbalize/demonstrate understanding of assistive devices/ modifications for ADL. 3=Patient will improve strength/tolerance for activity to enable patient to perform ADL's. OT Alf Goals Endless Steamer Tender Goals Time Frame: Jan 16, 2019 Eating (FIM): 7 Eating (QC): 6 Groomin Oral Hygiene (QC): 6 Bathing(FIM): 7 Bathing Location: L Arm, R Arm, L Upper Leg, R Upper Leg, L Lower Leg ( including foot), R Lower Leg (including foot), Chest, Abdomen, Buttocks, Perineal Area Shower/Bathe Self (QC): 7 Upper Body Dressing(FIM): 7 Upper Body Dressing (QC): 6 Lower Body Dressing(FIM): 7 Lower Body Dressing (QC): 6 On/Off Footwear (QC): 6 Toileting(FIM): 7 Toileting Hygiene (QC): 6 Transfers (B,C,W/C) (FIM): 7 Toilet/Commode Transfer(FIM): 7 Toilet/Commode Transfer (QC): 6 Shower Transfer(FIM): 7 Additional Goals: 1-Demonstrate ADL Tasks, 2-Verbalize Understanding, 3- ImproveStrength/Kristen 1=Demonstrate adherence to instructed precautions during ADL tasks. 2=Patient will verbalize/demonstrate understanding of assistive devices/ modifications for ADL. 3=Patient will improve strength/tolerance for activity to enable patient to perform ADL's. OT Education/Plan Problem List/Assessment Assessment: Decreased Activ Tolerance, Decreased Safety Aware, Impaired Bed Mobility, Impaired Funct Balance, Impaired Self-Care Skills Discharge Recommendations Plan/Recommendations: Continue POC Therapy D/C Recommendations: Home Independently, Occupational Therapy Home Care Equpiment Recommendations-D/C: Receiving Team Member, [place] Treatment Plan/Plan of Care Treatment,Training & Education: Yes Patient would benefit from OT for education, treatment and training to promote independence in ADL's, mobility, safety and/or upper extremity function for ADL' s. Plan of Care: ADL Retraining, Caregiver Training, Functional Mobility, UE Funct Exercise/Act Treatment Duration: Jan 09, 2019 Frequency: 5 times per week Estimated Hrs Per Day: .25 hour per day Agreement: Yes Rehab Potential: Good Time/GCodes Start Time: 14:00 Stop Time: 14:55 Total Time Billed (hr/min): 55 Billed Treatment Time 1 Visit EVM 55 Min LORNA LUIS OT Dec 12, 2018 14:50
[2018-12-12] MEDS: GENTAMICIN 0.3% OPHTH SOLN 5 ML OS SCH ×2 (16:11→20:27)
[2018-12-12] MEDS: CATHETER FLUSH 10 ML SYR IV SCH ×2 (16:11→20:27)
[2018-12-12] MEDS: PIPERACILLIN SODIUM/TAZOBACTAM 4.5 GM in NS (IVPB) 100 ML IV SCH (16:11)
[2018-12-12] MEDS: DIVALPROEX 250 MG DELAYED RELEASE (DEPAKOTE) TAB PO SCH ×2 (17:11→20:26)
[2018-12-12 18:49] VITALS: BP 133/65
[2018-12-12] MEDS: CARVEDILOL 6.25 MG (COREG) TAB PO SCH (20:26)
[2018-12-12] MEDS: DONEPEZIL 10 MG (ARICEPT) TAB PO SCH (20:26)
[2018-12-12] MEDS: traZODone 50 MG (DESYREL) TAB PO SCH (20:26)
[2018-12-12] MEDS: MUPIROCIN 2% OINT 22 GM (BACTROBAN) TUBE TOP SCH (20:27)
[2018-12-13] MEDS: GENTAMICIN 0.3% OPHTH SOLN 5 ML OS SCH ×7 (00:10→23:18)
[2018-12-13] MEDS: PIPERACILLIN SODIUM/TAZOBACTAM 4.5 GM in NS (IVPB) 100 ML IV SCH ×4 (00:10→23:18)
--- NOTE | 2018-12-13 02:06 | NUR ---
This RN called Dr. Gonzales in reference to the patient having audible wheezing when he ambulates. Patient states that he is having some shortness of breath. SPO2 is 92% on room air. Dr. Gonzales orders a MAT. Order repeated and confirmed.
[2018-12-13 02:18] VITALS: BP 133/65
[2018-12-13] MEDS ORDERED: RT-ALBUTEROL/IPRATROPIUM 3 ML (DUONEB) VIAL INH PRN ×2 (02:30→04:45)
[2018-12-13 05:42] VITALS: BP 137/67
[2018-12-13] MEDS: MULTIVIT W/MINERALS TAB (THERAGRAN M) PO SCH (06:08)
[2018-12-13] MEDS: KCL 10 MEQ TAB (MICRO K) PO SCH (06:08)
[2018-12-13] MEDS: CATHETER FLUSH 10 ML SYR IV SCH ×3 (06:08→19:57)
[2018-12-13] MEDS: RT-ALBUTEROL/IPRATROPIUM 3 ML (DUONEB) VIAL INH SCH ×4 (06:29→18:57)
[2018-12-13] MEDS: OMEGA 3 (FISH OIL) 1000 MG CAP PO SCH (08:11)
[2018-12-13] MEDS: CARVEDILOL 6.25 MG (COREG) TAB PO SCH ×2 (08:11→19:56)
[2018-12-13] MEDS: SIMvastatin 20 MG (ZOCOR) TAB PO SCH (08:11)
[2018-12-13] MEDS: lisINopril 5 MG (PRINIVIL) TABLET PO SCH (08:11)
[2018-12-13] MEDS: ASPIRIN E.C. 81 MG (ECOTRIN) TAB PO SCH (08:11)
[2018-12-13] MEDS: FERROUS SULF 325 MG (IRON) TAB PO SCH (08:11)
[2018-12-13] MEDS: DIVALPROEX 250 MG DELAYED RELEASE (DEPAKOTE) TAB PO SCH ×4 (08:11→19:57)
[2018-12-13] MEDS: MUPIROCIN 2% OINT 22 GM (BACTROBAN) TUBE TOP SCH ×2 (08:18→19:57)
--- NOTE | 2018-12-13 08:36 | Diagnostic Imaging Report ---
EXAMINATION: Chest radiograph, portable AP view. DATE: December 13, 2018 at 0423 hours. INDICATION: 78-year-old male, wheezing. Respiratory distress. COMPARISON: December 10, 2018. FINDINGS: There is a left-sided cardiac assist device with leads. The leads appear intact. Stable overall appearance of the cardiomediastinal silhouette. There is no identified pneumothorax. There is no large pleural effusion. There is no identified focal airspace consolidation. IMPRESSION: No identified acute cardiopulmonary abnormality. Dictated by: Dictated on workstation # [id number]
--- NOTE | 2018-12-13 10:34 | Progress Note-Hospitalist ---
Subjective HPI/CC On Admission Date Seen by Provider: Dec 13, 2018 Time Seen by Provider: 09:30 78-year-old white male who was admitted with recurrent falls secondary to either syncope or seizure. Subjective/Events-last exam Patient is lying in bed and without complaint. I was called by nursing staff overnight with increased wheezing with ambulation. Chest x-ray this morning is normal. Temperature is slightly elevated at 99. 10 stools were recorded from yesterday. Review of Systems HEENT: Other (Large amount of ecchymosis on the left side of the face with scleral hemorrhage) Neurological: Weakness Objective Exam Vital Signs Vital Signs Date Time Temp Pulse Resp B/P (MAP) Pulse Ox O2 Delivery O2 Flow Rate FiO2 12/13/18 10:27 95 Nasal Cannula 2.00 12/13/18 05:42 99.5 79 18 137/67 (90) 12/13/18 02:18 21 Capillary Refill : General Appearance: Chronically ill HEENT: Other (Ecchymosis left side of the face) Neck: Limited Range of Motion Respiratory: Lungs Clear, Normal Breath Sounds, No Accessory Muscle Use, No Respiratory Distress Cardiovascular: Regular Rate, Rhythm, No Gallop, No Murmur Gastrointestinal: Normal Bowel Sounds, Non Tender, Soft Rectal: Deferred Neurologic/Psychiatric: Alert Skin: Pallor Results/Procedures Lab Patient resulted labs reviewed. Assessment/Plan Assessment and Plan Assess & Plan/Chief Complaint 1. Wheezing overnight started on mat protocol chest x-ray is normal on Zosyn for diverticulitis 2. History of seizure disorder 3. Diarrhea may need checking for C. difficile. 4. Diverticulitis on Zosyn 5. Hematoma left side of the face 6. Weakness and instability receiving PT ASMITA MARQUEZ MD Dec 13, 2018 10:34
--- NOTE | 2018-12-13 12:30 | Physical Therapy Daily Note ---
PT Daily Note-Current Subjective Pt with no c/o's, just finished lunch and is requesting to use restroom. Pain Comment: unable to give pain raiting, states "a little" Appearance pt supine in bed with head elevated. Mental Status delayed responses to instruction and questions Transfers Therapy Code Descriptions/Definitions Functional [place] Measure: 0=Not Assessed/NA 4=Minimal Assistance 1=Total Assistance 5=Supervision or Setup 2=Maximal Assistance 6=Modified [place] 3=Moderate Assistance 7=Complete [place] Therapy Quality Codes: 6 Independent with activity with or without an assistive device 5 Patient requires set up or clean up by helper. Patient completes activity by themselves 4 Supervision or touching assist (CGA). [place] provide cues , steadying assist 3 The helper provides less than half the effort to complete the activity 2 The helper provides more than half the effort to complete the activity 1 Dependent. The helper does all the effort to complete an activity 7 Patient refused to complete or attempt activity 9 The patient did not perform the activity before the current illness or injury 88 Not attempted due to Medical conditions or safety concerns Transfers (B, C, W/C) (FIM): 5 Scootin Rollin Roll Left to Right (QC): 6 Supine to/from Sit: 5 Sit to/from Stand: 5 requiring increased time to perform, somewhat ataxic movements Weight Bearing Right Lower Extremity: Right Weight Bearing/Tolerated Left Lower Extremity: Left Weight Bearing/Tolerated Gait Training Does the Patient Walk?: Yes Distance (FIM): 3=150 ft Distance: >800 Gait Level of Assist: 5 Gait Persons Needed: 1 Gait Assistive Device: None ataxic with occasional unsteady incidents without LOB, CGA provided, C/O occasional lightheadedness and dizziness Treatments safety, gait without AD and bed chair and toilet transfer training, bed mobility Assessment ataxic movements at times, delayed response times PT Short Term Goals Short Term Goals Transfers (B,C,W/C) (FIM): 6 PT Nonprofit Fundraiser Goals Longterm Goals PT Longterm Goals Time Frame: Dec 19, 2018 Transfers (B,C,W/C) (FIM): 7 Sit to Lying (QC): 6 Lying-Sitting on Side/Bed(QC): 6 Sit to Stand (QC): 6 Rollin Roll Left to Right (QC): 6 Chair/Xkl-dy-Hzblh Xfer(QC): 6 Car Transfer (QC): 6 Does the Patient Walk: Yes Gait (FIM): 7 Gait distance (FIM): 3=150 ft Walk 10 feet (QC): 6 Walk 10ft-Uneven Surface(QC): 6 Walk 50ft with 2 Turns (QC): 6 Walk 150 ft (QC): 6 Gait Level of Assist: 7 Gait Assistive Device: None PT Plan Problem List Problem List: Activity Tolerance, Functional Strength, Safety, Balance, Gait, Transfer, Bed Mobility Treatment/Plan Treatment Plan: Continue Plan of Care Treatment Plan: Education, Functional Activity Kristen, Functional Strength, Gait , Safety, Therapeutic Exercise, Transfers Treatment Duration: Dec 19, 2018 Frequency: 6 times per week Estimated Hrs Per Day: .25 hour per day Patient and/or Family Agrees t: Yes Safety Risks/Education Patient Education: Gait Training, Transfer Techniques, Safety Issues Teaching Recipient: Patient Teaching Methods: Demonstration, Discussion Response to Teaching: Verbalize Understanding, Return Demonstration, Reinforcement Needed Time/GCodes Time In: 1207 Time Out: 1227 Total Billed Treatment Time: 20 Total Billed Treatment 1 visit FA x20 min BABITA ANDREWS PTA Dec 13, 2018 12:30
[2018-12-13 18:00] VITALS: BP 139/67
[2018-12-13 19:01] VITALS: BP 139/67
[2018-12-13] MEDS: DONEPEZIL 10 MG (ARICEPT) TAB PO SCH (19:56)
[2018-12-13] MEDS: traZODone 50 MG (DESYREL) TAB PO SCH (19:56)
[2018-12-14] MEDS: GENTAMICIN 0.3% OPHTH SOLN 5 ML OS SCH ×6 (04:24→23:55)
[2018-12-14 05:47] VITALS: BP 131/72
[2018-12-14] MEDS: KCL 10 MEQ TAB (MICRO K) PO SCH (06:19)
[2018-12-14] MEDS: MULTIVIT W/MINERALS TAB (THERAGRAN M) PO SCH (06:19)
[2018-12-14] MEDS: CATHETER FLUSH 10 ML SYR IV SCH ×3 (06:19→21:02)
[2018-12-14] MEDS: OMEGA 3 (FISH OIL) 1000 MG CAP PO SCH (08:46)
[2018-12-14] MEDS: PIPERACILLIN SODIUM/TAZOBACTAM 4.5 GM in NS (IVPB) 100 ML IV SCH (08:46)
[2018-12-14] MEDS: FERROUS SULF 325 MG (IRON) TAB PO SCH (08:47)
[2018-12-14] MEDS: MUPIROCIN 2% OINT 22 GM (BACTROBAN) TUBE TOP SCH ×2 (08:47→21:02)
[2018-12-14] MEDS: SIMvastatin 20 MG (ZOCOR) TAB PO SCH (08:47)
[2018-12-14] MEDS: DIVALPROEX 250 MG DELAYED RELEASE (DEPAKOTE) TAB PO SCH ×4 (08:47→21:01)
[2018-12-14] MEDS: lisINopril 5 MG (PRINIVIL) TABLET PO SCH (08:47)
[2018-12-14] MEDS: ASPIRIN E.C. 81 MG (ECOTRIN) TAB PO SCH (08:47)
[2018-12-14] MEDS: CARVEDILOL 6.25 MG (COREG) TAB PO SCH ×2 (08:54→21:01)
[2018-12-14] MEDS: RT-ALBUTEROL/IPRATROPIUM 3 ML (DUONEB) VIAL INH SCH ×2 (10:39→19:59)
[2018-12-14 11:50] VITALS: BP 117/70
--- NOTE | 2018-12-14 15:30 | Progress Note-Hospitalist ---
Progress Note Patient has lost IV access and discharge should probably be attempted early this next week as such we'll begin Cipro and BILLY Zosyn as patient is tolerating oral medications well ASMITA MARQUEZ MD Dec 14, 2018 15:29
[2018-12-14 18:00] VITALS: BP 141/65
[2018-12-14] MEDS: DONEPEZIL 10 MG (ARICEPT) TAB PO SCH (21:01)
[2018-12-14] MEDS: traZODone 50 MG (DESYREL) TAB PO SCH (21:01)
[2018-12-14] MEDS: CIPROFLOXACIN 500 MG (CIPRO) TABLET PO SCH (21:01)
[2018-12-15] MEDS: GENTAMICIN 0.3% OPHTH SOLN 5 ML OS SCH ×3 (04:13→12:12)
[2018-12-15 06:35] VITALS: BP 136/70
[2018-12-15] MEDS: MULTIVIT W/MINERALS TAB (THERAGRAN M) PO SCH (06:35)
[2018-12-15] MEDS: CATHETER FLUSH 10 ML SYR IV SCH (06:35)
[2018-12-15] MEDS: KCL 10 MEQ TAB (MICRO K) PO SCH (06:35)
[2018-12-15] MEDS: RT-ALBUTEROL/IPRATROPIUM 3 ML (DUONEB) VIAL INH SCH (07:30)
[2018-12-15] MEDS: DIVALPROEX 250 MG DELAYED RELEASE (DEPAKOTE) TAB PO SCH ×2 (08:10→12:12)
[2018-12-15] MEDS: FERROUS SULF 325 MG (IRON) TAB PO SCH (08:10)
[2018-12-15] MEDS: OMEGA 3 (FISH OIL) 1000 MG CAP PO SCH (08:10)
[2018-12-15] MEDS: CIPROFLOXACIN 500 MG (CIPRO) TABLET PO SCH (08:10)
[2018-12-15] MEDS: CARVEDILOL 6.25 MG (COREG) TAB PO SCH (08:10)
[2018-12-15] MEDS: ASPIRIN E.C. 81 MG (ECOTRIN) TAB PO SCH (08:10)
[2018-12-15] MEDS: lisINopril 5 MG (PRINIVIL) TABLET PO SCH (08:10)
[2018-12-15] MEDS: SIMvastatin 20 MG (ZOCOR) TAB PO SCH (08:10)
[2018-12-15] MEDS: MUPIROCIN 2% OINT 22 GM (BACTROBAN) TUBE TOP SCH (08:11)
--- NOTE | 2018-12-15 09:26 | Physical Therapy Daily Note ---
PT Daily Note-Current Subjective Pt was upright in bed and was ready to walk. He agreed to PT. Pt reports that he is feeling good. Pain Numeric Pain Scale: 0-No Pain Location: No Pain Reported Mental Status Patient Orientation: Person, Normal For Age Transfers Therapy Code Descriptions/Definitions Functional [place] Measure: 0=Not Assessed/NA 4=Minimal Assistance 1=Total Assistance 5=Supervision or Setup 2=Maximal Assistance 6=Modified [place] 3=Moderate Assistance 7=Complete [place] Therapy Quality Codes: 6 Independent with activity with or without an assistive device 5 Patient requires set up or clean up by helper. Patient completes activity by themselves 4 Supervision or touching assist (CGA). [place] provide cues , steadying assist 3 The helper provides less than half the effort to complete the activity 2 The helper provides more than half the effort to complete the activity 1 Dependent. The helper does all the effort to complete an activity 7 Patient refused to complete or attempt activity 9 The patient did not perform the activity before the current illness or injury 88 Not attempted due to Medical conditions or safety concerns Transfers (B, C, W/C) (FIM): 5 Scootin Supine to/from Sit: 5 Sit to/from Stand: 5 Bed to/from Chair: 5 Weight Bearing Right Lower Extremity: Right Weight Bearing/Tolerated Left Lower Extremity: Left Weight Bearing/Tolerated Gait Training Gait (FIM): 5 Distance (FIM): 3=150 ft Distance: >300 Walk 150 ft (QC): 5 Gait Level of Assist: 5 Gait Persons Needed: 1 Gait Assistive Device: None Stair Training Stair Training: Handrails/: 1 handrail Stairs (FIM): 4 #of Steps: 4 Stairs: Pattern: Step to Level of Assist: 4 Exercises Seated Therapy Exercises: Ankle pumps, Long arc quads, Hip flexion Seated Reps: 15 Assessment Current Status: Good Progress Pt was ready to walk and was able to amb with SBA >300' with >90 degree turns. Pt was able to ascend and descend stairs x4 with CGA and instruction on safety of descending stairs. Pt performed seated ex in recliner. He is now upright in recliner with all needs met. PT Short Term Goals Short Term Goals Transfers (B,C,W/C) (FIM): 6 PT Station Installation Supervisor Goals Station Installation Supervisor Goals PT Station Installation Supervisor Goals Time Frame: Dec 19, 2018 Transfers (B,C,W/C) (FIM): 7 Sit to Lying (QC): 6 Lying-Sitting on Side/Bed(QC): 6 Sit to Stand (QC): 6 Rollin Roll Left to Right (QC): 6 Chair/Nru-qn-Eweet Xfer(QC): 6 Car Transfer (QC): 6 Does the Patient Walk: Yes Gait (FIM): 7 Gait distance (FIM): 3=150 ft Walk 10 feet (QC): 6 Walk 10ft-Uneven Surface(QC): 6 Walk 50ft with 2 Turns (QC): 6 Walk 150 ft (QC): 6 Gait Level of Assist: 7 Gait Assistive Device: None PT Plan Problem List Problem List: Activity Tolerance, Functional Strength, Safety, Gait, Transfer Treatment/Plan Treatment Plan: Continue Plan of Care Treatment Plan: Education, Functional Activity Kristen, Functional Strength, Gait , Safety, Therapeutic Exercise, Transfers Treatment Duration: Dec 19, 2018 Frequency: 6 times per week Estimated Hrs Per Day: .25 hour per day Patient and/or Family Agrees t: Yes Time/GCodes Time In: 855 Time Out: 910 Total Billed Treatment Time: 15 Total Billed Treatment 1 visit FA 15 min MALLORY MACKEY PT Dec 15, 2018 09:26
--- NOTE | 2018-12-15 10:07 | NUR ---
CM/SS voicemail left for Son (Markel Kiran, ).
--- NOTE | 2018-12-15 10:44 | NUR ---
CM/SS spoke with son, Markel, they plan for the patient to return home. He lives around the corner and his mother lives across the street from the patient and they can provide assistance as necessary. They are not willing to consider Assisted Living or SNF at this time. Family feels he is functioning as he has for years and they have no concerns for him returning home.
--- NOTE | 2018-12-15 12:05 | Progress Note-Hospitalist ---
Progress Note Progress Notes/Assess & Plan Date Seen 12/15/18 Time Seen by Provider: 12:02 Assessment & Plan The patient has made good progress since admission. He is felt to be walking at baseline. His injuries from the fall have healed. He seems brighter as well. They are eager to go home. Physical exam: The abrasions on the left face and associated ecchymoses have largely cleared. The knee abrasion is much better. The lesion on the dorsum of the left hand is healing as well. Lungs are clear to auscultation. CV is regular without murmur. He is walking without assistance. Impression: Fall at home. Associated injuries on the left periorbital area and yazdanism, abrasion to the dorsal aspect of the left hand, abrasion left prepatellar. 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 Plan: Discharge to home with family support. SHIELA MONTAÑO MD Dec 15, 2018 12:05
--- NOTE | 2018-12-15 12:09 | Discharge Instructions ---
Discharge Instructions Patient Instructions Patient Instructions: Resume medications as listed on the discharge sequence. Resume activity and diet as before. Activity & Diet Discharge Diet: No Restrictions SHIELA MONTAÑO MD Dec 15, 2018 12:09
--- NOTE | 2018-12-15 12:10 | NUR ---
Notice of Medicare Non-Coverage presented/reviewed/signed and charted. Patient voiced no intention to appeal and deny any needs or further questions at this time.
[2018-12-15 13:25] VITALS: BP 136/70
--- NOTE | 2018-12-15 13:25 | NUR ---
Discharge instructions went over and given to patient allowing time for questions. and son (DPOA) present. Vital signs stable and patient taken down via wheelchair accompanied by staff and family.
--- NOTE | 2018-12-15 13:48 | Therapy Team Discharge Summary ---
Therapy Discharge Summary Discharge Recommendations Date of Discharge Therapy D/C Recommendations: Home Independently, Occupational Therapy Home Care Physical Therapy Patient continued to perform all gross motor skills SBA to independent with ambulating >1000' with WBOS and no deviation. Patient performed steps with use of bilateral hand rails, 4 steps and SBA for safety with reciprocal pattern. Patient tolerated treatments and will return to home on this date with needs met. Patient has good family support. Patient continues to be a fall risk secondary to seizure disorder and TBI. PT to dismiss patient from services at this time. Occupational Therapy Decreased Activ Tolerance, Decreased Safety Aware, Impaired Bed Mobility, Impaired Funct Balance, Impaired Self-Care Skills PT [facility]ci Goals Cash Analyst Goals PT Cash Analyst Goals Time Frame: Dec 19, 2018 Transfers (B,C,W/C) (FIM): 7 Sit to Lying (QC): 6 Lying-Sitting on Side/Bed(QC): 6 Sit to Stand (QC): 6 Rollin Chair/Eqj-hi-Prtun Xfer(QC): 6 Does the Patient Walk: Yes Gait (FIM): 7 Gait distance (FIM): 3=150 ft Walk 50ft with 2 Turns (QC): 6 Walk 150 ft (QC): 6 Gait Level of Assist: 7 Gait Assistive Device: None OT Cash Analyst Goals Cash Analyst Goals Time Frame: Jan 16, 2019 Eating (FIM): 7 Eating (QC): 6 Groomin Oral Hygiene (QC): 6 Bathing(FIM): 7 Bathing Location: L Arm, R Arm, L Upper Leg, R Upper Leg, L Lower Leg ( including foot), R Lower Leg (including foot), Chest, Abdomen, Buttocks, Perineal Area Upper Body Dressing(FIM): 7 Lower Body Dressing(FIM): 7 Toileting(FIM): 7 Toileting Hygiene (QC): 6 Transfers (B,C,W/C) (FIM): 7 Toilet/Commode Transfer(FIM): 7 Toilet/Commode Transfer (QC): 6 Shower Transfer(FIM): 7 Additional Goals: 1-Demonstrate ADL Tasks, 2-Verbalize Understanding, 3- ImproveStrength/Kristen 1=Demonstrate adherence to instructed precautions during ADL tasks. 2=Patient will verbalize/demonstrate understanding of assistive devices/ modifications for ADL. 3=Patient will improve strength/tolerance for activity to enable patient to perform ADL's. MALLORY MACKEY PT Dec 15, 2018 13:48
--- NOTE | 2018-12-16 08:38 | Therapy Team Discharge Summary ---
Therapy Discharge Summary Discharge Recommendations Date of Discharge Dec 15, 2018 at 13:25 Patient been Eval by OT on Dec 12. & pt left on Dec 15. Pt been admitted due to unwitness fall & had bodily injury. On OT initial Eval patient had unsteady standing balance, increased weakness due to decreased strength, fair endurance, mild confusion & decline in ADLs. Pt not been seen on weekends & pt d /c from Hospital on dec 15 . OT recommends Home Health services with OT & PT services to continue to maximise func. Wallace in all ADLs, safe mobility, to improve standing balance & strength in BUE & BLE with safety precautions. Recommends Shower bench/stool, long handheld showerhead, grab bars , raised toilet seat as resident is tall with side rails , & night light during night to prevent fall. Therapy D/C Recommendations: Home Independently, Occupational Therapy Home Care Occupational Therapy Decreased Activ Tolerance, Decreased Safety Aware, Impaired Bed Mobility, Impaired Funct Balance, Impaired Self-Care Skills PT Junior Administrative Assistant Goals Junior Administrative Assistant Goals PT Junior Administrative Assistant Goals Time Frame: Dec 19, 2018 Transfers (B,C,W/C) (FIM): 7 Sit to Lying (QC): 6 Lying-Sitting on Side/Bed(QC): 6 Sit to Stand (QC): 6 Rollin Chair/Nju-ms-Gquqi Xfer(QC): 6 Does the Patient Walk: Yes Gait (FIM): 7 Gait distance (FIM): 3=150 ft Walk 50ft with 2 Turns (QC): 6 Walk 150 ft (QC): 6 Gait Level of Assist: 7 Gait Assistive Device: None OT Junior Administrative Assistant Goals Junior Administrative Assistant Goals Time Frame: Jan 16, 2019 Eating (FIM): 7 (goal met) Eating (QC): 6 Groomin Oral Hygiene (QC): 6 Bathing(FIM): 7 Bathing Location: L Arm, R Arm, L Upper Leg, R Upper Leg, L Lower Leg ( including foot), R Lower Leg (including foot), Chest, Abdomen, Buttocks, Perineal Area Upper Body Dressing(FIM): 7 Lower Body Dressing(FIM): 7 Toileting(FIM): 7 Toileting Hygiene (QC): 6 Transfers (B,C,W/C) (FIM): 7 Toilet/Commode Transfer(FIM): 7 Toilet/Commode Transfer (QC): 6 Shower Transfer(FIM): 7 Additional Goals: 1-Demonstrate ADL Tasks, 2-Verbalize Understanding, 3- ImproveStrength/Kristen 1=Demonstrate adherence to instructed precautions during ADL tasks. 2=Patient will verbalize/demonstrate understanding of assistive devices/ modifications for ADL. 3=Patient will improve strength/tolerance for activity to enable patient to perform ADL's. LORNA LUIS OT Dec 16, 2018 08:38
== END 2018-12-15 13:25 | disposition home or self-care (01) | DRG 392 ==
LOC: 4TH 12:40
PROVIDERS: ADMIT Internal Medicine; ATTEND Internal Medicine
DX: K57.92 Diverticulitis of intestine, part unspecified, without perforation or abscess without bleeding (principal); G40.909 Epilepsy, unspecified, not intractable, without status epilepticus; S00.83XD Contusion of other part of head, subsequent encounter; S00.12XD Contusion of left eyelid and periocular area, subsequent encounter; R19.7 Diarrhea, unspecified; R53.1 Weakness; R26.81 Unsteadiness on feet; S60.512D Abrasion of left hand, subsequent encounter; S80.212D Abrasion, left knee, subsequent encounter; I25.10 Atherosclerotic heart disease of native coronary artery without angina pectoris; E78.00 Pure hypercholesterolemia, unspecified; I10 Essential (primary) hypertension; I25.5 Ischemic cardiomyopathy; I25.2 Old myocardial infarction; Z86.61 Personal history of infections of the central nervous system; Z87.820 Personal history of traumatic brain injury; Z87.891 Personal history of nicotine dependence; Z95.810 Presence of automatic (implantable) cardiac defibrillator; W19.XXXD Unspecified fall, subsequent encounter; Y93.01 Activity, walking, marching and hiking
CPT/HCPCS: 71045; 94640; 94760

== ENCOUNTER 2019-02-13 05:32 | Outpatient (CLI) | payer MEDICARE ==
[~2019-02-13] VITALS: Ht 170.2 cm; Wt 90.1 kg
== END 2019-02-13 09:47 | disposition home or self-care (01) ==
LOC: PREOP 05:32
PROVIDERS: ATTEND Surgery
DX: Z01.818 Encounter for other preprocedural examination (principal)

== ENCOUNTER 2019-02-18 06:06 | Day surgery (SDC) | payer MEDICARE ==
[~2019-02-18] VITALS: Ht 170.2 cm; Wt 85.4 kg
--- OUTSIDE RECORDS SUMMARY | 2019-02-18 06:09 | XMS REPORT | Clinical Summary ---
Author Author [facility] Organization [facility] Address Unknown Phone Unavailable Care Team Providers Care Oracle Applications Analyst Name Role Phone Jaxon Estrella MD PCP Source Comments Some departments are not documenting in the electronic medical record. If you do not see the information that you expected, contact Release of Information in the Health Information Management department at [phone] for further assistance in locating additional records.[facility] Allergies No Known Allergies Medications End Date [...] Taken Vital Sign Reading 01/24/2017 10:27 AM WHEEL POLISHER Blood Pressure 129/82 01/24/2017 12:24 PM WHEEL POLISHER Pulse 62 01/24/2017 10:27 AM WHEEL POLISHER Temperature 36.5 C (97.7 F) - Respiratory Rate - 01/24/2017 10:27 AM WHEEL POLISHER Oxygen Saturation 97% - Inhaled Oxygen - Concentration 01/21/2017 8:00 PM WHEEL POLISHER Weight 91.5 kg (201 lb 11.5 oz) 01/21/2017 8:00 PM WHEEL POLISHER Height 177.8 cm (5' 10") 01/21/2017 8:00 PM WHEEL POLISHER Body Mass Index 28.94 Plan of Treatment [...] on file. For more information, please contact: [facility] [address] [place] [address] Date Inactivated Comments Code Status Date Activated 01/24/2017 6:41 PM Full Code 01/21/2017 4:45 PM Provider has discussed Code Status No, more discussion w/Patient or Family? needed
--- OUTSIDE RECORDS SUMMARY | 2019-02-18 06:11 | XMS REPORT | Continuity of Care Document ---
Author Author [facility] Organization [facility] Address Unknown Phone Unavailable Allergies Active Description Code Type Severity Reaction Onset Reported/Identified Relationship to Patient Clinical Status Yes NKANo Known Allergies NKA Miscellaneous Allergy Mild N/A 01/18/2006 Yes No Known Drug Allergies [id number] Drug Allergy Unknown N/A 02/13/2019 Medications There is no data. Problems Date [...] V58.63 LONG-TERM(CURRENT)USE OF ANTIPLATELET/AN 07/23/2013 ELA MESSER, SII [place] Ot V58.69 OT MED,LT,CURRENT USE 12/21/2014 [...] ELA MESSER, ISI M Ot V72.83 01/11/2015 EAL MESSER, ISI M Ot V74.8 01/20/2015 ELA [...] [place] Ot V74.8 06/02/2015 BAIMA, JUN L ANALOG CIRCUIT DESIGNER Ot 272.4 06/02/2015 BAIMA, JUN L ANALOG CIRCUIT DESIGNER Ot 401.9 06/02/2015 BAIMA, JUN L ANALOG CIRCUIT DESIGNER Ot 414.00 06/02/2015 BAIMA, JUN L ANALOG CIRCUIT DESIGNER Ot V45.02 06/09/2015 BAIMA, JUN L ANALOG CIRCUIT DESIGNER Ot 272.4 06/09/2015 BAIMA, JUN L ANALOG CIRCUIT DESIGNER Ot 401.9 06/09/2015 BAIMA, JUN L ANALOG CIRCUIT DESIGNER Ot 414.00 06/09/2015 BAIMA, JUN L ANALOG CIRCUIT DESIGNER Ot V45.02 10/18/2015 ANAIS MESSER FACC, ALI FACP CCDS Ot E78.5 HYPERLIPIDEMIA, UNSPECIFIED 10/18/2015 ANAIS MESSER FACC, ALI FACP CCDS Ot G40.909 EPILEPSY, UNSP, NOT INTRACTABLE, WITHOUT 10/18/2015 ANAIS MESSER FACC, ALI FACP CCDS Ot I12.9 HYPERTENSIVE CHRONIC KIDNEY DISEASE W ST 10/18/2015 ANAIS MESSER FACChristelle, ALI FACP CCDS Ot I25.10 ATHSCL HEART DISEASE OF [place] CORONARY 10/18/2015 ANAIS MESSER FACC, ALI FACP CCDS Ot I25.5 ISCHEMIC CARDIOMYOPATHY 10/18/2015 ANAIS MESSER FACC, ALI FACP CCDS Ot N18.9 CHRONIC KIDNEY DISEASE, UNSPECIFIED 10/18/2015 ANAIS MESSER FACC, ALI FACP CCDS Ot Z45.02 ENCNTR FOR ADJUST AND MGMT OF AUTOMATIC 10/18/2015 ANAIS MESSER FACC, ALI FACP CCDS Ot Z79.899 OTHER CANDLEMAKER (CURRENT) DRUG THERAPY 10/18/2015 ANAIS MESSER FACC, [...] [place] Ot V74.8 01/11/2016 JUN DON L ANALOG CIRCUIT DESIGNER Ot 272.4 01/11/2016 BAIJUN AMEZQUITA L ANALOG CIRCUIT DESIGNER Ot 401.9 01/11/2016 BAIJUN AMEZQUITA L ANALOG CIRCUIT DESIGNER Ot 414.00 01/11/2016 BAIJUN AMEZQUITA L ANALOG CIRCUIT DESIGNER Ot V45.02 01/11/2016 ANAIS MESSER FACC, ALI [...] MD Ot I25.10 ATHSCL HEART DISEASE OF [place] CORONARY 01/11/2016 ELA MESSER, ISI [place] Ot [...] MD Ot I25.10 ATHSCL HEART DISEASE OF [place] CORONARY 09/10/2016 ISI MAHMOOD MD Ot Z11.2 [...] DO Ot I25.10 ATHSCL HEART DISEASE OF [place] CORONARY 01/21/2017 OSCAR SUAREZ DO Ot R29.810 FACIAL WEAKNESS 01/21/2017 OSCAR SUAREZ DO Ot R56.9 UNSPECIFIED CONVULSIONS 01/21/2017 OSCAR SUAREZ DO Ot Z79.899 OTHER HALFWAY (CURRENT) DRUG THERAPY 01/21/2017 OSCAR SUAREZ DO Ot Z87.820 PERSONAL HISTORY OF TRAUMATIC BRAIN INJU 01/24/2017 OSCAR SUAREZ DO Ot G81.91 HEMIPLEGIA, UNSPECIFIED AFFECTING RIGHT 01/24/2017 OSCAR SUAREZ DO Ot I25.10 ATHSCL HEART DISEASE OF [place] CORONARY 01/24/2017 OSCAR SUAREZ DO Ot R29.810 FACIAL WEAKNESS 01/24/2017 OSCAR SUAREZ DO Ot R56.9 UNSPECIFIED CONVULSIONS 01/24/2017 OSCAR SUAREZ DO Ot Z79.899 OTHER HALFWAY (CURRENT) DRUG THERAPY 01/24/2017 OSCAR SUAREZ DO [...] MD Ot I25.10 ATHSCL HEART DISEASE OF [place] CORONARY 09/25/2017 ISI MAHMOOD MD Ot I25.5 ISCHEMIC CARDIOMYOPATHY 09/25/2017 ISI MAHMOOD MD Ot Z79.02 HALFWAY (CURRENT) USE OF ANTITHROMBOTI 09/25/2017 ISI MAHMOOD MD Ot Z79.899 OTHER CANDLEMAKER (CURRENT) DRUG THERAPY 09/25/2017 ISI MAHMOOD MD [...] SCREEN-BACTERIAL DIS NEC 02/27/2018 BAIMA, JUN L ANALOG CIRCUIT DESIGNER Ot 272.4 HYPERLIPIDEMIA NEC/NOS 02/27/2018 BAIMA, JUN L ANALOG CIRCUIT DESIGNER Ot 401.9 HYPERTENSION NOS 02/27/2018 BAIMA, JUN L ANALOG CIRCUIT DESIGNER Ot 414.00 CORON ATHEROSCLER NOS TYPE VESSEL, NATIV 02/27/2018 BAIMA, JUN L ANALOG CIRCUIT DESIGNER Ot V45.02 AUTO IMPLANTABLE CARDIAC DEFIBRILLATOR I 02/27/2018 ANAIS MESSER FACC, MARGRET CORREIA CCDS Ot I25.5 ISCHEMIC CARDIOMYOPATHY 02/27/2018 ELA MESSER, ISI [place] Ot Z01.818 ENCOUNTER FOR OTHER PREPROCEDURAL EXAMIN 02/27/2018 JARED MESSER, FLOR K Ot G40.909 EPILEPSY, UNSP, NOT INTRACTABLE, WITHOUT 03/05/2018 BAIMA, JUN L ANALOG CIRCUIT DESIGNER Ot E78.4 OTHER HYPERLIPIDEMIA 03/05/2018 BAIMA, JUN L ANALOG CIRCUIT DESIGNER Ot I10 ESSENTIAL (PRIMARY) HYPERTENSION 03/05/2018 BAIMA, JUN L ANALOG CIRCUIT DESIGNER Ot 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 03/05/2018 BAIMA, JUN L ANALOG CIRCUIT DESIGNER Ot I25.10 ATHSCL HEART DISEASE OF [place] CORONARY 03/05/2018 BAIMA, JUN L ANALOG CIRCUIT DESIGNER Ot I25.5 ISCHEMIC CARDIOMYOPATHY 03/05/2018 BAIMA, JUN L ANALOG CIRCUIT DESIGNER Ot I65.29 OCCLUSION AND STENOSIS OF UNSPECIFIED CA 03/05/2018 BAIMA, JUN L ANALOG CIRCUIT DESIGNER Ot Z95.810 PRESENCE OF AUTOMATIC (IMPLANTABLE) CARD 03/05/2018 BAIMA, JUN L ANALOG CIRCUIT DESIGNER Ot E78.4 OTHER HYPERLIPIDEMIA 03/05/2018 BAIMA, JUN L ANALOG CIRCUIT DESIGNER Ot I10 ESSENTIAL (PRIMARY) HYPERTENSION 03/05/2018 BAIMA, JUN L ANALOG CIRCUIT DESIGNER Ot 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 03/05/2018 BAIMA, JUN L ANALOG CIRCUIT DESIGNER Ot I25.10 ATHSCL HEART DISEASE OF [place] CORONARY 03/05/2018 BAIMA, JUN L ANALOG CIRCUIT DESIGNER Ot I25.5 ISCHEMIC CARDIOMYOPATHY 03/05/2018 BAIMA, JUN L ANALOG CIRCUIT DESIGNER Ot I65.29 OCCLUSION AND STENOSIS OF UNSPECIFIED CA 03/05/2018 BAIMA, JUN L ANALOG CIRCUIT DESIGNER Ot Z95.810 PRESENCE OF AUTOMATIC (IMPLANTABLE) CARD [...] SCREEN-BACTERIAL DIS NEC 03/12/2018 BAIMA, JUN L ANALOG CIRCUIT DESIGNER Ot 272.4 HYPERLIPIDEMIA NEC/NOS 03/12/2018 BAIMA, JUN L ANALOG CIRCUIT DESIGNER Ot 401.9 HYPERTENSION NOS 03/12/2018 BAIMA, JUN L ANALOG CIRCUIT DESIGNER Ot 414.00 CORON ATHEROSCLER NOS TYPE VESSEL, NATIV 03/12/2018 BAIMA, JUN L ANALOG CIRCUIT DESIGNER Ot V45.02 AUTO IMPLANTABLE CARDIAC DEFIBRILLATOR I 03/12/2018 ANAIS MESSER FACC, ALI FACP CCDS Ot I25.5 ISCHEMIC CARDIOMYOPATHY 03/12/2018 ELA MESSER, ISI [place] Ot Z01.818 ENCOUNTER FOR OTHER PREPROCEDURAL EXAMIN 03/12/2018 JARED MESSER, FLOR K Ot G40.909 EPILEPSY, UNSP, NOT INTRACTABLE, WITHOUT 03/12/2018 BAIMA, JUN L ANALOG CIRCUIT DESIGNER Ot E78.4 OTHER HYPERLIPIDEMIA 03/12/2018 BAIMA, JUN L ANALOG CIRCUIT DESIGNER Ot I10 ESSENTIAL (PRIMARY) HYPERTENSION 03/12/2018 BAIMA, JUN L ANALOG CIRCUIT DESIGNER Ot 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 03/12/2018 BAIMA, JUN L ANALOG CIRCUIT DESIGNER Ot I25.10 ATHSCL HEART DISEASE OF [place] CORONARY 03/12/2018 BAIBIA JUN L ANALOG CIRCUIT DESIGNER Ot I25.5 ISCHEMIC CARDIOMYOPATHY 03/12/2018 BAIBIA, JUN L ANALOG CIRCUIT DESIGNER Ot I65.29 OCCLUSION AND STENOSIS OF UNSPECIFIED CA 03/12/2018 BAIBIA JUN L ANALOG CIRCUIT DESIGNER Ot Z95.810 PRESENCE OF AUTOMATIC (IMPLANTABLE) CARD [...] SCREEN-BACTERIAL DIS NEC 03/13/2018 BAIMA, JUN L ANALOG CIRCUIT DESIGNER Ot 272.4 HYPERLIPIDEMIA NEC/NOS 03/13/2018 MATEOMA, JUN L ANALOG CIRCUIT DESIGNER Ot 401.9 HYPERTENSION NOS 03/13/2018 ARIAN, JUN L ANALOG CIRCUIT DESIGNER Ot 414.00 CORON ATHEROSCLER NOS TYPE VESSEL, NATIV 03/13/2018 ARIAN JUN L ANALOG CIRCUIT DESIGNER Ot V45.02 AUTO IMPLANTABLE CARDIAC DEFIBRILLATOR I 03/13/2018 ANAIS MESSER FACC, ALI FACP CCDS Ot I25.5 ISCHEMIC CARDIOMYOPATHY 03/13/2018 ELA MESSER, ISI [place] Ot Z01.818 ENCOUNTER FOR OTHER PREPROCEDURAL EXAMIN 03/13/2018 JARED MESSER, FLOR Hernandez Ot G40.909 EPILEPSY, UNSP, NOT INTRACTABLE, WITHOUT 03/13/2018 BAIMA, JUN L ANALOG CIRCUIT DESIGNER Ot E78.4 OTHER HYPERLIPIDEMIA 03/13/2018 BAIMA, JUN L ANALOG CIRCUIT DESIGNER Ot I10 ESSENTIAL (PRIMARY) HYPERTENSION 03/13/2018 BAIMA, JUN L ANALOG CIRCUIT DESIGNER Ot 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 03/13/2018 ARIAN JUN L ANALOG CIRCUIT DESIGNER Ot I25.10 ATHSCL HEART DISEASE OF [place] CORONARY 03/13/2018 BAIBIA, JUN L ANALOG CIRCUIT DESIGNER Ot I25.5 ISCHEMIC CARDIOMYOPATHY 03/13/2018 BAIMA, JUN L ANALOG CIRCUIT DESIGNER Ot I65.29 OCCLUSION AND STENOSIS OF UNSPECIFIED CA 03/13/2018 BAIMA JUN L ANALOG CIRCUIT DESIGNER Ot Z95.810 PRESENCE OF AUTOMATIC (IMPLANTABLE) CARD [...] SCREEN-BACTERIAL DIS NEC 03/19/2018 ARIAN, JUN L ANALOG CIRCUIT DESIGNER Ot 272.4 HYPERLIPIDEMIA NEC/NOS 03/19/2018 ARIAN, JUN L ANALOG CIRCUIT DESIGNER Ot 401.9 HYPERTENSION NOS 03/19/2018 ARIAN, JUN L ANALOG CIRCUIT DESIGNER Ot 414.00 CORON ATHEROSCLER NOS TYPE VESSEL, NATIV 03/19/2018 ARIAN JUN L ANALOG CIRCUIT DESIGNER Ot V45.02 AUTO IMPLANTABLE CARDIAC DEFIBRILLATOR I 03/19/2018 ANAIS MESSER FACC, ALI FACP CCDS Ot I25.5 ISCHEMIC CARDIOMYOPATHY 03/19/2018 ELA MESSER, ISI [place] Ot Z01.818 ENCOUNTER FOR OTHER PREPROCEDURAL EXAMIN 03/19/2018 JARED MESSER, FLOR Hernandez Ot G40.909 EPILEPSY, UNSP, NOT INTRACTABLE, WITHOUT 03/19/2018 BAIMA, JUN L ANALOG CIRCUIT DESIGNER Ot E78.4 OTHER HYPERLIPIDEMIA 03/19/2018 BAIMA, JUN L ANALOG CIRCUIT DESIGNER Ot I10 ESSENTIAL (PRIMARY) HYPERTENSION 03/19/2018 BAIJUN AMEZQUITA ANALOG CIRCUIT DESIGNER Ot 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 03/19/2018 JUN DON ANALOG CIRCUIT DESIGNER Ot I25.10 ATHSCL HEART DISEASE OF [place] CORONARY 03/19/2018 MATEOJUN AMEZQUITA ANALOG CIRCUIT DESIGNER Ot I25.5 ISCHEMIC CARDIOMYOPATHY 03/19/2018 MATEOJUN AMEZQUITA ANALOG CIRCUIT DESIGNER Ot I65.29 OCCLUSION AND STENOSIS OF UNSPECIFIED CA 03/19/2018 JUN DON ANALOG CIRCUIT DESIGNER Ot Z95.810 PRESENCE OF AUTOMATIC (IMPLANTABLE) CARD 03/19/2018 ISI MAHMOOD MD Ot 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 03/19/2018 ISI MAHMOOD MD Ot E78.5 HYPERLIPIDEMIA, UNSPECIFIED 03/19/2018 ISI MAHMOOD MD Ot I10 ESSENTIAL (PRIMARY) HYPERTENSION 03/19/2018 ISI MAHMOOD MD M Ot I25.10 ATHSCL HEART DISEASE OF [place] CORONARY 03/19/2018 ISI MAHMOOD MD Ot I25.5 [...] M Ot I25.10 ATHSCL HEART DISEASE OF [place] CORONARY 03/21/2018 ISI MAHMOOD MD Ot I25.5 [...] SCREEN-BACTERIAL DIS NEC 03/21/2018 ARIAN JUN L ANALOG CIRCUIT DESIGNER Ot 272.4 HYPERLIPIDEMIA NEC/NOS 03/21/2018 MATEOMA JUN L ANALOG CIRCUIT DESIGNER Ot 401.9 HYPERTENSION NOS 03/21/2018 BAIMA, JUN L ANALOG CIRCUIT DESIGNER Ot 414.00 CORON ATHEROSCLER NOS TYPE VESSEL, NATIV 03/21/2018 ARIAN JUN L ANALOG CIRCUIT DESIGNER Ot V45.02 AUTO IMPLANTABLE CARDIAC DEFIBRILLATOR I 03/21/2018 ANAIS MESSER FACC, MARGRET FACP CCDS Ot I25.5 ISCHEMIC CARDIOMYOPATHY 03/21/2018 ELA MESSER, ISI [place] Ot Z01.818 ENCOUNTER FOR OTHER PREPROCEDURAL EXAMIN 03/21/2018 JARED MSESER, FLOR Hernandez Ot G40.909 EPILEPSY, UNSP, NOT INTRACTABLE, WITHOUT 03/21/2018 BAIMA JUN L ANALOG CIRCUIT DESIGNER Ot E78.4 OTHER HYPERLIPIDEMIA 03/21/2018 BAIMA, JUN L ANALOG CIRCUIT DESIGNER Ot I10 ESSENTIAL (PRIMARY) HYPERTENSION 03/21/2018 BAIMA, JUN L ANALOG CIRCUIT DESIGNER Ot 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 03/21/2018 MATEOMA JUN L ANALOG CIRCUIT DESIGNER Ot I25.10 ATHSCL HEART DISEASE OF [place] CORONARY 03/21/2018 ARIAN JUN L ANALOG CIRCUIT DESIGNER Ot I25.5 ISCHEMIC CARDIOMYOPATHY 03/21/2018 ARIAN JUN L ANALOG CIRCUIT DESIGNER Ot I65.29 OCCLUSION AND STENOSIS OF UNSPECIFIED CA 03/21/2018 BAIMA, JUN L ANALOG CIRCUIT DESIGNER Ot Z95.810 PRESENCE OF AUTOMATIC (IMPLANTABLE) CARD 03/26/2018 BAIMA, JUN L ANALOG CIRCUIT DESIGNER Ot E78.4 OTHER HYPERLIPIDEMIA 03/26/2018 BAIMA, JUN L ANALOG CIRCUIT DESIGNER Ot I10 ESSENTIAL (PRIMARY) HYPERTENSION 03/26/2018 BAIMA, JUN L ANALOG CIRCUIT DESIGNER Ot 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 03/26/2018 BAIMA, JUN L ANALOG CIRCUIT DESIGNER Ot I25.10 ATHSCL HEART DISEASE OF [place] CORONARY 03/26/2018 BAIMA, JUN L ANALOG CIRCUIT DESIGNER Ot I25.5 ISCHEMIC CARDIOMYOPATHY 03/26/2018 BAIMA, JUN L ANALOG CIRCUIT DESIGNER Ot I65.29 OCCLUSION AND STENOSIS OF UNSPECIFIED CA 03/26/2018 BAIMA, JUN L ANALOG CIRCUIT DESIGNER Ot Z95.810 PRESENCE OF AUTOMATIC (IMPLANTABLE) CARD 03/27/2018 BAIMA, JUN L ANALOG CIRCUIT DESIGNER Ot E78.5 HYPERLIPIDEMIA, UNSPECIFIED 03/27/2018 BAIMA, JUN L ANALOG CIRCUIT DESIGNER Ot I10 ESSENTIAL (PRIMARY) HYPERTENSION 03/27/2018 BAIMA, JUN L ANALOG CIRCUIT DESIGNER Ot I25.10 ATHSCL HEART DISEASE OF [place] CORONARY 03/27/2018 BAIMA, JUN L ANALOG CIRCUIT DESIGNER Ot I25.5 ISCHEMIC CARDIOMYOPATHY 03/27/2018 BAIMA, JUN L ANALOG CIRCUIT DESIGNER Ot I34.0 NONRHEUMATIC MITRAL (VALVE) INSUFFICIENC 04/02/2018 BAIMA, JUN L ANALOG CIRCUIT DESIGNER Ot E78.4 OTHER HYPERLIPIDEMIA 04/02/2018 BAIMA, JUN L ANALOG CIRCUIT DESIGNER Ot I10 ESSENTIAL (PRIMARY) HYPERTENSION 04/02/2018 BAIMA, JUN L ANALOG CIRCUIT DESIGNER Ot 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 04/02/2018 BAIMA, JUN L ANALOG CIRCUIT DESIGNER Ot I25.10 ATHSCL HEART DISEASE OF [place] CORONARY 04/02/2018 BAIMA, JUN L ANALOG CIRCUIT DESIGNER Ot I25.5 ISCHEMIC CARDIOMYOPATHY 04/02/2018 BAIMA, JUN L ANALOG CIRCUIT DESIGNER Ot I65.29 OCCLUSION AND STENOSIS OF UNSPECIFIED CA 04/02/2018 BAIMA, JUN L ANALOG CIRCUIT DESIGNER Ot Z95.810 PRESENCE OF AUTOMATIC (IMPLANTABLE) CARD 04/14/2018 BAIMA, JUN L ANALOG CIRCUIT DESIGNER Ot E78.5 HYPERLIPIDEMIA, UNSPECIFIED 04/14/2018 JUN DON L ANALOG CIRCUIT DESIGNER Ot I10 ESSENTIAL (PRIMARY) HYPERTENSION 04/14/2018 JUN DON L ANALOG CIRCUIT DESIGNER Ot I25.10 ATHSCL HEART DISEASE OF [place] CORONARY 04/14/2018 JUN DON L ANALOG CIRCUIT DESIGNER Ot I25.5 ISCHEMIC CARDIOMYOPATHY 04/14/2018 JUN DON L ANALOG CIRCUIT DESIGNER Ot I34.0 NONRHEUMATIC MITRAL (VALVE) INSUFFICIENC 04/16/2018 JUN DON ANALOG CIRCUIT DESIGNER Ot E78.5 HYPERLIPIDEMIA, UNSPECIFIED 04/16/2018 JUN DON L ANALOG CIRCUIT DESIGNER Ot I10 ESSENTIAL (PRIMARY) HYPERTENSION 04/16/2018 JUN DON L ANALOG CIRCUIT DESIGNER Ot I25.10 ATHSCL HEART DISEASE OF [place] CORONARY 04/16/2018 JUN DON L ANALOG CIRCUIT DESIGNER Ot I25.5 ISCHEMIC CARDIOMYOPATHY 04/16/2018 JUN DON L ANALOG CIRCUIT DESIGNER Ot I34.0 NONRHEUMATIC MITRAL (VALVE) INSUFFICIENC 05/14/2018 ELA MESSER, ISI Paniagua Ot L98.9 DISORDER OF THE SKIN AND SUBCUTANEOUS TI 05/14/2018 ISI MAHMOOD MD Ot Z01.818 ENCOUNTER FOR OTHER PREPROCEDURAL EXAMIN 05/15/2018 ISI MAHMOOD MD Ot L98.9 DISORDER OF THE SKIN AND SUBCUTANEOUS TI 05/15/2018 ISI MAHMOOD MD Ot Z01.818 ENCOUNTER FOR OTHER PREPROCEDURAL EXAMIN 05/16/2018 ISI MAHMOOD MD Ot C44.319 BASAL CELL CARCINOMA OF SKIN OF OTHER PA 05/16/2018 ISI MAHMOOD MD Ot C44.329 SQUAMOUS CELL CARCINOMA OF SKIN OF OTHER 05/16/2018 ISI MAHMOOD MD Ot C44.41 BASAL CELL CARCINOMA OF SKIN OF [place] AN 05/16/2018 ISI MAHMOOD MD Ot I10 ESSENTIAL (PRIMARY) HYPERTENSION 05/16/2018 ISI MAHMOOD MD Ot I25.10 ATHSCL HEART DISEASE OF [place] CORONARY 05/16/2018 ISI MAHMOOD MD Ot I42.9 CARDIOMYOPATHY, UNSPECIFIED 05/16/2018 ISI MAHMOOD MD Ot R56.9 UNSPECIFIED CONVULSIONS 05/16/2018 ISI MAHMOOD MD Ot Z79.899 OTHER CANDLEMAKER (CURRENT) DRUG THERAPY 05/16/2018 ISI MAHMOOD MD [...] MD Ot I25.10 ATHSCL HEART DISEASE OF [place] CORONARY 05/20/2018 ISI MAHMOOD MD Ot I42.9 CARDIOMYOPATHY, UNSPECIFIED 05/20/2018 ISI MAHMOOD MD Ot R56.9 UNSPECIFIED CONVULSIONS 05/20/2018 ISI MAHMOOD MD Ot Z79.899 OTHER HALFWAY (CURRENT) DRUG THERAPY 05/20/2018 ISI MAHMOOD MD [...] MD Ot I25.10 ATHSCL HEART DISEASE OF [place] CORONARY 05/23/2018 ELA MESSER, ISI P[place] Ot I42.9 CARDIOMYOPATHY, UNSPECIFIED 05/23/2018 ISI MAHMOOD MD Ot R56.9 UNSPECIFIED CONVULSIONS 05/23/2018 ISI MAHMOOD MD Ot Z79.899 OTHER HALFWAY (CURRENT) DRUG THERAPY 05/23/2018 ISI MAHMOOD MD Ot Z87.891 PERSONAL HISTORY OF NICOTINE DEPENDENCE 05/23/2018 ISI MAHMOOD MD Ot Z95.5 PRESENCE OF CORONARY ANGIOPLASTY IMPLANT 05/23/2018 ISI MAHMOOD MD Ot Z95.810 PRESENCE OF AUTOMATIC (IMPLANTABLE) CARD 12/12/2018 ELIZABETH GLEASON MD Ot E78.00 PURE HYPERCHOLESTEROLEMIA, UNSPECIFIED 12/12/2018 ELIZABETH GLEASON MD, Ot E86.0 DEHYDRATION 12/12/2018 ELIZABETH GLEASON MD, Ot G40.909 EPILEPSY, UNSP, NOT INTRACTABLE, WITHOUT 12/12/2018 ELIZABETH GLEASON MD Ot I10 ESSENTIAL (PRIMARY) HYPERTENSION 12/12/2018 ELIZABETH GLEASON MD Ot I25.10 ATHSCL HEART DISEASE OF [place] CORONARY 12/12/2018 ELIZABETH GLEASON MD, Ot I25.2 OLD MYOCARDIAL INFARCTION 12/12/2018 ELIZABETH GLEASON MD, Ot I25.5 ISCHEMIC CARDIOMYOPATHY 12/12/2018 ELIZABETH GLEASON MD, Ot I34.0 NONRHEUMATIC MITRAL (VALVE) INSUFFICIENC 12/12/2018 ELIZABETH GLEASON MD Ot K57.92 DVTRCLI OF INTEST, PART UNSP, W/O PERF O 12/12/2018 ELIZABETH GLEASON MD Ot S00.31XA ABRASION OF NOSE, INITIAL ENCOUNTER 12/12/2018 ELIZABETH GLEASON MD Ot S00.81XA ABRASION OF OTHER PART OF HEAD, INITIAL 12/12/2018 ELIZABETH GLEASON MD Ot S00.83XA CONTUSION OF OTHER PART OF HEAD, INITIAL 12/12/2018 ELIZABETH GLEASON MD Ot S01.112A LACERATION W/O FB OF LEFT EYELID AND PER 12/12/2018 ELIZABETH GLEASON MD Ot S05.02XA INJ CONJUNCTIVA AND CORNEAL ABRASION W/O 12/12/2018 ELIZABETH GLEASON MD Ot S05.8X2A OTHER INJURIES OF LEFT EYE AND ORBIT, IN 12/12/2018 ELIZABETH GLEASON MD Ot S60.512A ABRASION OF LEFT HAND, INITIAL ENCOUNTER 12/12/2018 ELIZABETH GLEASON MD Ot S80.01XA CONTUSION OF RIGHT KNEE, INITIAL ENCOUNT 12/12/2018 ELIZABETH GLEASON MD Ot S80.02XA CONTUSION OF LEFT KNEE, INITIAL ENCOUNTE 12/12/2018 ELIZABETH GLEASON MD Ot W19.XXXA UNSPECIFIED FALL, INITIAL ENCOUNTER 12/12/2018 ELIZABETH GLEASON MD Ot Y93.01 ACTIVITY, WALKING, MARCHING AND HIKING 12/12/2018 ELIZABETH GLEASON MD Ot Z86.61 PERSONAL HISTORY OF INFECTIONS OF THE CE 12/12/2018 ELIZABETH GLEASON MD Ot Z87.820 PERSONAL HISTORY OF TRAUMATIC BRAIN INJU 12/12/2018 ELIZABETH GLEASON MD Ot Z87.891 PERSONAL HISTORY OF NICOTINE DEPENDENCE 12/12/2018 ELIZABETH GLEASON MD Ot Z95.810 PRESENCE OF AUTOMATIC (IMPLANTABLE) CARD 12/15/2018 ASHLEY SALOMON DO Ot E78.00 PURE HYPERCHOLESTEROLEMIA, UNSPECIFIED 12/15/2018 ASHLEY SALOMON DO Ot G40.909 EPILEPSY, UNSP, NOT INTRACTABLE, WITHOUT 12/15/2018 ASHLEY SALOMON DO Ot I10 ESSENTIAL (PRIMARY) HYPERTENSION 12/15/2018 ASHLEY SALOMON DO Ot I25.10 ATHSCL HEART DISEASE OF [place] CORONARY 12/15/2018 ASHLEY SALOMON DO Ot I25.2 OLD MYOCARDIAL INFARCTION 12/15/2018 ASHLEY SALOMON DO Ot I25.5 ISCHEMIC CARDIOMYOPATHY 12/15/2018 ASHLEY SALOMON DO Ot K57.92 DVTRCLI OF INTEST, PART UNSP, W/O PERF O 12/15/2018 ASHLEY SALOMON DO Ot R19.7 DIARRHEA, UNSPECIFIED 12/15/2018 ASHLEY SALOMON DO Ot R26.81 UNSTEADINESS ON FEET 12/15/2018 ASHLEY SALOMON DO Ot R53.1 WEAKNESS 12/15/2018 ASHLEY SALOMON DO Ot S00.12XD CONTUSION OF LEFT EYELID AND PERIOCULAR 12/15/2018 ASHLEY SALOMON DO Ot S00.83XD CONTUSION OF OTHER PART OF HEAD, SUBSEQU 12/15/2018 ASHLEY SALOMON DO Ot S60.512D ABRASION OF LEFT HAND, SUBSEQUENT ENCOUN 12/15/2018 GENA SALOMON DOI Ot S80.212D ABRASION, LEFT KNEE, SUBSEQUENT ENCOUNTE 12/15/2018 SALOMONASHLEY CRAFT DO Ot W19.XXXD UNSPECIFIED FALL, SUBSEQUENT ENCOUNTER 12/15/2018 SALOMONASHLEY CRAFT DO Ot Y93.01 ACTIVITY, WALKING, MARCHING AND HIKING 12/15/2018 SALOMONASHLEY CRAFT DO Ot Z86.61 PERSONAL HISTORY OF INFECTIONS OF THE CE 12/15/2018 ASHLEY SALOMON DO Ot Z87.820 PERSONAL HISTORY OF TRAUMATIC BRAIN INJU 12/15/2018 ASHLEY SALOMON DO Ot Z87.891 PERSONAL HISTORY OF NICOTINE DEPENDENCE 12/15/2018 ASHLEY SALOMON DO Ot Z95.810 PRESENCE OF AUTOMATIC (IMPLANTABLE) CARD 02/13/2019 ELA MESSER, ISI Paniagua Ot Z01.818 ENCOUNTER FOR OTHER PREPROCEDURAL EXAMIN 02/18/2019 ELA MESSER, ISI Paniagua Ot 709.9 SKIN DISORDER NOS 02/18/2019 ELA MESSER, ISI Paniagua Ot V72.83 EXAM PRE-OPERATIVE NEC 02/18/2019 ELA MESSER, ISI Paniagua Ot V74.8 SCREEN-BACTERIAL DIS NEC 02/18/2019 BAIMA, JUN L ANALOG CIRCUIT DESIGNER Ot 272.4 HYPERLIPIDEMIA NEC/NOS 02/18/2019 BAIMA, JUN L ANALOG CIRCUIT DESIGNER Ot 401.9 HYPERTENSION NOS 02/18/2019 BAIMA, JUN L ANALOG CIRCUIT DESIGNER Ot 414.00 CORON ATHEROSCLER NOS TYPE VESSEL, NATIV 02/18/2019 ARIAN JUN L ANALOG CIRCUIT DESIGNER Ot V45.02 AUTO IMPLANTABLE CARDIAC DEFIBRILLATOR I 02/18/2019 ANAIS MESSER FACC, ALI FACP CCDS Ot I25.5 ISCHEMIC CARDIOMYOPATHY 02/18/2019 ELA MESSER, ISI Paniagua Ot Z01.818 ENCOUNTER FOR OTHER PREPROCEDURAL EXAMIN 02/18/2019 JARED MESSER, FLOR K Ot G40.909 EPILEPSY, UNSP, NOT INTRACTABLE, WITHOUT 02/18/2019 BAIMA, JUN L ANALOG CIRCUIT DESIGNER Ot E78.4 OTHER HYPERLIPIDEMIA 02/18/2019 BAIMA, JUN L [employer] DES[employer]ER Ot I10 ESSENTIAL (PRIMARY) HYPERTENSION 02/18/2019 BAIMA, JUN L [employer] Ot 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 02/18/2019 BAIMA, JUN L [employer] DES[employer] Ot I25.10 ATHSCL HEART DISEASE OF [place] CORONARY 02/18/2019 JUN DON [employer] DES[employer]ER Ot I25.5 ISCHEMIC CARDIOMYOPATHY 02/18/2019 JUN DON [employer] DES[employer] Ot I65.29 OCCLUSION AND STENOSIS OF UNSPECIFIED [place] 02/18/2019 JUN DON [employer] DES[employer]ER Ot Z95.810 PRESENCE OF AUTOMATIC (IMPLANTABLE) CARD 02/18/2019 JUN DON [employer] DES[employer]ER Ot E78.5 HYPERLIPIDEMIA, UNSPECIFIED 02/18/2019 JUN DON [employer] DES[employer] Ot I10 ESSENTIAL (PRIMARY) HYPERTENSION 02/18/2019 JUN DON [employer] DES[employer]ER Ot I25.10 ATHSCL HEART DISEASE OF [place] CORONARY 02/18/2019 JUN DON [employer] Ot I25.5 ISCHEMIC CARDIOMYOPATHY 02/18/2019 JUN DON [employer] DES[employer] Ot I34.0 NONRHEUMATIC MITRAL (VALVE) INSUFFICIENC Procedures Code Description Performed By Performed On [id number] REPAIR FACE SUBCUTANEOUS TISSUE AND FASC 12/09/2018 Results Test Result Range Methicillin resistant Staphylococcus [...] automated white blood cell (WBC) differential - 12/09/18 16:25 Blood leukocytes automated count (number/volume) 9.9 10*3/uL 4.3-11.0 Blood erythrocytes automated count (number/volume) 4.47 10*6/uL 4.35-5.85 Venous blood hemoglobin measurement (mass/volume) 13.2 g/dL 13.3-17.7 Blood hematocrit (volume fraction) 38 % 40-54 Automated erythrocyte mean corpuscular volume 86 [foz_us] 80-99 Automated erythrocyte mean corpuscular hemoglobin (mass per erythrocyte) 30 pg 25-34 Automated erythrocyte mean corpuscular hemoglobin concentration measurement ( mass/volume) 34 g/dL 32-36 Automated erythrocyte distribution width ratio 13.2 % 10.0-14.5 Automated blood platelet count (count/volume) 178 10*3/uL 130-400 Automated blood platelet mean volume measurement 10.1 [foz_us] 7.4-10.4 Automated blood neutrophils/100 leukocytes 77 % 42-75 Automated blood lymphocytes/100 leukocytes 12 % 12-44 Blood monocytes/100 leukocytes 10 % 0-12 Automated blood eosinophils/100 leukocytes 2 % 0-10 Automated blood basophils/100 leukocytes 0 % 0-10 Blood neutrophils automated count (number/volume) 7.6 10*3 1.8-7.8 Blood lymphocytes automated count (number/volume) 1.2 10*3 1.0-4.0 Blood monocytes automated count (number/volume) 1.0 10*3 0.0-1.0 Automated eosinophil count 0.2 10*3/uL 0.0-0.3 Automated blood basophil count (count/volume) 0.0 10*3/uL 0.0-0.1 PT panel in platelet poor plasma by coagulation assay - 12/09/18 16:25 Prothrombin time (PT) in platelet poor plasma by coagulation assay 14.3 s 12.2-14.7 INR in platelet poor plasma or blood by coagulation assay 1.1 0.8-1.4 Activated partial thromboplastin time (aPTT) in platelet poor plasma bycoagulation assay - 12/09/18 16:25 Activated partial thromboplastin time (aPTT) in platelet poor plasma bycoagulation assay 31 s 24-35 Comprehensive metabolic panel - 12/09/18 16:25 Serum or plasma sodium measurement (moles/volume) 139 mmol/L 135-145 Serum or plasma potassium measurement (moles/volume) 4.0 mmol/L 3.6-5.0 Serum or plasma chloride measurement (moles/volume) 102 mmol/L 98-107 Carbon dioxide 25 mmol/L 21-32 Serum or plasma anion gap determination (moles/volume) 12 mmol/L 5-14 Serum or plasma urea nitrogen measurement (mass/volume) 26 mg/dL 7-18 Serum or plasma creatinine measurement (mass/volume) 1.01 mg/dL 0.60-1.30 Serum or plasma urea nitrogen/creatinine mass ratio 26 NRG Serum or plasma creatinine measurement with calculation of estimated glomerular filtration rate > NRG Serum or plasma glucose measurement (mass/volume) 153 mg/dL 70-105 Serum or plasma calcium measurement (mass/volume) 9.0 mg/dL 8.5-10.1 Serum or plasma total bilirubin measurement (mass/volume) 0.5 mg/dL 0.1-1.0 Serum or plasma alkaline phosphatase measurement (enzymatic activity/volume) 45 U/L 40-136 Serum or plasma aspartate aminotransferase measurement (enzymatic activity/ volume) 19 U/L 5-34 Serum or plasma alanine aminotransferase measurement (enzymatic activity/volume ) 17 U/L 0-55 Serum or plasma protein measurement (mass/volume) 6.6 g/dL 6.4-8.2 Serum or plasma albumin measurement (mass/volume) 3.9 g/dL 3.2-4.5 CALCIUM CORRECTED 9.1 mg/dL 8.5-10.1 Serum or plasma creatine kinase measurement (enzymatic activity/volume) - 12/09 16:25 Serum or plasma creatine kinase measurement (enzymatic activity/volume) 149 U/L 30-200 Serum or plasma troponin i.cardiac measurement (mass/volume) - 12/09/18 16:25 Serum or plasma troponin i.cardiac measurement (mass/volume) < ng/ mL <0.028 [id number] - 12/09/18 16:25 [id number] 44.9 ug/mL 50.0-100.0 Streptococcus pyogenes antigen detection - 12/09/18 16:35 Streptococcus pyogenes antigen detection NEGATIVE NEGATIVE Influenza virus A and B antigen detection - 12/09/18 16:35 FLU RESULT NEGATIVE FOR INFLUENZA A AND B ANTIGENS BY IA NRG Bacterial throat culture - 12/09/18 16:35 Bacterial throat culture NBS NRG Capillary blood glucose measurement by glucometer (mass/volume) - 12/09/18 16: 51 Capillary blood glucose measurement by glucometer (mass/volume) 152 mg/dL 70-110 Blood lactic acid measurement (moles/volume) - 12/09/18 17:04 Blood lactic acid measurement (moles/volume) 1.65 mmol/L 0.50-2.00 Bacterial blood culture - 12/09/18 17:04 Bacterial blood culture NG NRG Bacterial blood culture - 12/09/18 17:34 Bacterial blood culture NG NRG Complete urinalysis with reflex to culture - 12/09/18 17:49 Urine color determination YELLOW NRG Urine clarity determination CLEAR NRG Urine pH measurement by test strip 5 5-9 Specific gravity of urine by test strip 1.020 1.016- 1.022 Urine protein assay by test strip, semi-quantitative 3+ NEGATIVE Urine glucose detection by automated test strip NEGATIVE NEGATIVE Erythrocytes detection in urine sediment by light microscopy 1+ NEGATIVE Urine ketones detection by automated test strip 2+ NEGATIVE Urine nitrite detection by test strip NEGATIVE NEGATIVE Urine total bilirubin detection by test strip NEGATIVE NEGATIVE Urine urobilinogen measurement by automated test strip (mass/volume) 1 mg/dL NORMAL Urine leukocyte esterase detection by dipstick 1+ NEGATIVE Automated urine sediment erythrocyte count by microscopy (number/high power field) [HPF] NRG Automated urine sediment leukocyte count by microscopy (number/high power field ) [HPF] NRG Bacteria detection in urine sediment by light microscopy NONE NRG Crystals detection in urine sediment by light microscopy NONE NRG Casts detection in urine sediment by light microscopy NONE NRG Mucus detection in urine sediment by light microscopy SMALL NRG Complete urinalysis with reflex to culture NO NRG Bacterial urine culture - 12/09/18 17:49 Bacterial urine culture NG NRG Serum or plasma troponin i.cardiac measurement (mass/volume) - 12/09/18 22:35 Serum or plasma troponin i.cardiac measurement (mass/volume) 0.052 ng/mL <0.028 Complete blood count (CBC) with automated white blood cell (WBC) differential - 12/10/18 05:22 Blood leukocytes automated count (number/volume) 10.1 10*3/uL 4.3-11.0 Blood erythrocytes automated count (number/volume) 4.15 10*6/uL 4.35-5.85 Venous blood hemoglobin measurement (mass/volume) 12.0 g/dL 13.3-17.7 Blood hematocrit (volume fraction) 36 % 40-54 Automated erythrocyte mean corpuscular volume 87 [foz_us] 80-99 Automated erythrocyte mean corpuscular hemoglobin (mass per erythrocyte) 29 pg 25-34 Automated erythrocyte mean corpuscular hemoglobin concentration measurement ( mass/volume) 33 g/dL 32-36 Automated erythrocyte distribution width ratio 12.9 % 10.0-14.5 Automated blood platelet count (count/volume) 154 10*3/uL 130-400 Automated blood platelet mean volume measurement 10.4 [foz_us] 7.4-10.4 Automated blood neutrophils/100 leukocytes 72 % 42-75 Automated blood lymphocytes/100 leukocytes 15 % 12-44 Blood monocytes/100 leukocytes 11 % 0-12 Automated blood eosinophils/100 leukocytes 2 % 0-10 Automated blood basophils/100 leukocytes 0 % 0-10 Blood neutrophils automated count (number/volume) 7.3 10*3 1.8-7.8 Blood lymphocytes automated count (number/volume) 1.5 10*3 1.0-4.0 Blood monocytes automated count (number/volume) 1.2 10*3 0.0-1.0 Automated eosinophil count 0.2 10*3/uL 0.0-0.3 Automated blood basophil count (count/volume) 0.0 10*3/uL 0.0-0.1 Comprehensive metabolic panel - 12/10/18 05:22 Serum or plasma sodium measurement (moles/volume) 138 mmol/L 135-145 Serum or plasma potassium measurement (moles/volume) 3.5 mmol/L 3.6-5.0 Serum or plasma chloride measurement (moles/volume) 103 mmol/L 98-107 Carbon dioxide 24 mmol/L 21-32 Serum or plasma anion gap determination (moles/volume) 11 mmol/L 5-14 Serum or plasma urea nitrogen measurement (mass/volume) 24 mg/dL 7-18 Serum or plasma creatinine measurement (mass/volume) 0.95 mg/dL 0.60-1.30 Serum or plasma urea nitrogen/creatinine mass ratio 25 NRG Serum or plasma creatinine measurement with calculation of estimated glomerular filtration rate > NRG Serum or plasma glucose measurement (mass/volume) 130 mg/dL 70-105 Serum or plasma calcium measurement (mass/volume) 8.5 mg/dL 8.5-10.1 Serum or plasma total bilirubin measurement (mass/volume) 0.6 mg/dL 0.1-1.0 Serum or plasma alkaline phosphatase measurement (enzymatic activity/volume) 44 U/L 40-136 Serum or plasma aspartate aminotransferase measurement (enzymatic activity/ volume) 18 U/L 5-34 Serum or plasma alanine aminotransferase measurement (enzymatic activity/volume ) 10 U/L 0-55 Serum or plasma protein measurement (mass/volume) 6.0 g/dL 6.4-8.2 Serum or plasma albumin measurement (mass/volume) 3.3 g/dL 3.2-4.5 CALCIUM CORRECTED 9.1 mg/dL 8.5-10.1 Complete urinalysis with reflex to culture - 12/11/18 06:20 Urine color determination YELLOW NRG Urine clarity determination SL CLOUDY NRG Urine pH measurement by test strip 6 5-9 Specific gravity of urine by test strip 1.020 1.016- 1.022 Urine protein assay by test strip, semi-quantitative 2+ NEGATIVE Urine glucose detection by automated test strip NEGATIVE NEGATIVE Erythrocytes detection in urine sediment by light microscopy 2+ NEGATIVE Urine ketones detection by automated test strip 2+ NEGATIVE Urine nitrite detection by test strip NEGATIVE NEGATIVE Urine total bilirubin detection by test strip NEGATIVE NEGATIVE Urine urobilinogen measurement by automated test strip (mass/volume) NORMAL NORMAL Urine leukocyte esterase detection by dipstick 1+ NEGATIVE Automated urine sediment erythrocyte count by microscopy (number/high power field) [HPF] NRG Automated urine sediment leukocyte count by microscopy (number/high power field ) [HPF] NRG Bacteria detection in urine sediment by light microscopy FEW NRG Squamous epithelial cells detection in urine sediment by light microscopy RARE NRG Crystals detection in urine sediment by light microscopy PRESENT NRG Casts detection in urine sediment by light microscopy NONE NRG Mucus detection in urine sediment by light microscopy SMALL NRG Complete urinalysis with reflex to culture YES NRG Amorphous sediment detection in urine sediment by light microscopy FEW SHIELA URATES NRG Bacterial urine culture - 12/11/18 06:20 Bacterial urine culture NG NRG Complete blood count (CBC) with automated white blood cell (WBC) differential - 12/11/18 08:38 Blood leukocytes automated count (number/volume) 10.4 10*3/uL 4.3-11.0 Blood erythrocytes automated count (number/volume) 4.37 10*6/uL 4.35-5.85 Venous blood hemoglobin measurement (mass/volume) 12.8 g/dL 13.3-17.7 Blood hematocrit (volume fraction) 37 % 40-54 Automated erythrocyte mean corpuscular volume 86 [foz_us] 80-99 Automated erythrocyte mean corpuscular hemoglobin (mass per erythrocyte) 29 pg 25-34 Automated erythrocyte mean corpuscular hemoglobin concentration measurement ( mass/volume) 34 g/dL 32-36 Automated erythrocyte distribution width ratio 13.2 % 10.0-14.5 Automated blood platelet count (count/volume) 183 10*3/uL 130-400 Automated blood platelet mean volume measurement 9.7 [foz_us] 7.4-10.4 Automated blood neutrophils/100 leukocytes 74 % 42-75 Automated blood lymphocytes/100 leukocytes 11 % 12-44 Blood monocytes/100 leukocytes 12 % 0-12 Automated blood eosinophils/100 leukocytes 3 % 0-10 Automated blood basophils/100 leukocytes 0 % 0-10 Blood neutrophils automated count (number/volume) 7.7 10*3 1.8-7.8 Blood lymphocytes automated count (number/volume) 1.1 10*3 1.0-4.0 Blood monocytes automated count (number/volume) 1.2 10*3 0.0-1.0 Automated eosinophil count 0.3 10*3/uL 0.0-0.3 Automated blood basophil count (count/volume) 0.0 10*3/uL 0.0-0.1 Comprehensive metabolic panel - 12/11/18 08:38 Serum or plasma sodium measurement (moles/volume) 139 mmol/L 135-145 Serum or plasma potassium measurement (moles/volume) 3.1 mmol/L 3.6-5.0 Serum or plasma chloride measurement (moles/volume) 103 mmol/L 98-107 Carbon dioxide 26 mmol/L 21-32 Serum or plasma anion gap determination (moles/volume) 10 mmol/L 5-14 Serum or plasma urea nitrogen measurement (mass/volume) 23 mg/dL 7-18 Serum or plasma creatinine measurement (mass/volume) 0.90 mg/dL 0.60-1.30 Serum or plasma urea nitrogen/creatinine mass ratio 26 NRG Serum or plasma creatinine measurement with calculation of estimated glomerular filtration rate > NRG Serum or plasma glucose measurement (mass/volume) 115 mg/dL 70-105 Serum or plasma calcium measurement (mass/volume) 8.5 mg/dL 8.5-10.1 Serum or plasma total bilirubin measurement (mass/volume) 0.5 mg/dL 0.1-1.0 Serum or plasma alkaline phosphatase measurement (enzymatic activity/volume) 42 U/L 40-136 Serum or plasma aspartate aminotransferase measurement (enzymatic activity/ volume) 23 U/L 5-34 Serum or plasma alanine aminotransferase measurement (enzymatic activity/volume ) 18 U/L 0-55 Serum or plasma protein measurement (mass/volume) 6.3 g/dL 6.4-8.2 Serum or plasma albumin measurement (mass/volume) 3.4 g/dL 3.2-4.5 CALCIUM CORRECTED 9.0 mg/dL 8.5-10.1 Encounters ACCT No. Visit Date/Time Discharge Status Pt. Type Provider Facility Loc./Unit Complaint [id number] 03/14/2015 08:35:39 03/14/2015 23:59:59 CLS Outpatient Cornell Clements [id number] 01/11/2015 15:25:55 01/11/2015 23:59:59 CLS Outpatient Cornell Clements [id number] 12/09/2014 09:23:47 12/09/2014 23:59:59 CLS Outpatient Cornell Clements [id number] 02/13/2019 05:32:00 02/13/2019 09:47:00 DIS Outpatient ISI MAHMOOD MD [facility] PREOP SKIN LESION [id number] 12/12/2018 12:40:00 12/15/2018 13:25:00 DIS Inpatient ASHLEY SALOMON DO [facility] 4TH SWB: UNWITNESSED FALL VS SEIZURE VS SYNCOPE [id number] 12/09/2018 19:10:00 12/12/2018 12:30:00 DIS Inpatient ELIZABETH GLEASON MD [facility] 4TH UNWITNESSED FALL VS SEIZURE VS SYNCOPE [id number] 05/16/2018 09:10:00 05/16/2018 13:55:00 DIS Outpatient ISI MAHMOOD MD [facility] SKIN LESIONS [id number] 05/14/2018 05:30:00 05/14/2018 09:48:00 DIS Outpatient ISI MAHMOOD MD [facility] PREOP SKIN LESIONS [id number] 03/21/2018 13:57:00 03/21/2018 23:59:59 CLS Outpatient JUN DON [facility] CARD I25.10 CAD [id number] 03/19/2018 08:20:00 03/19/2018 13:32:00 DIS Outpatient ISI MAHMOOD MD [facility] SKIN LESION,PERSONAL HX SQUAMOUS CELL SKIN CA [id number] 03/04/2018 08:18:00 03/04/2018 23:59:59 CLS Outpatient JUN DON [facility] CARD [id number] S/P ICD [id number] 09/25/2017 06:16:00 09/25/2017 12:40:00 DIS Outpatient ISI MAHMOOD MD [facility] SKIN LESION SCALP [id number] 09/18/2017 12:32:00 09/18/2017 14:10:00 DIS Outpatient ISI AMHMOOD MD [facility] PREOP SCALP LESIONS X2 [id number] 05/03/2017 09:49:00 05/03/2017 23:59:59 CLS Outpatient FLOR COLEMAN MD [facility] RT SEIZURE [id number] 01/21/2017 14:56:00 01/21/2017 16:20:00 DIS Emergency OSCAR SUAREZ DO [facility] ER RT SIDE WEAKNESS/POSS STROKE [id number] 10/24/2016 06:00:00 10/24/2016 10:35:00 DIS Outpatient ISI MAHMOOD MD [facility] SKIN LESIONS [id number] 10/19/2016 09:52:00 10/19/2016 10:20:00 DIS Outpatient ISI MAHMOOD MD [facility] PREOP SKIN LESIONS [id number] 01/11/2016 11:11:00 01/11/2016 15:00:00 DIS Outpatient ISI MAHMOOD MD [facility] MULTIPLE LESIONS [id number] 01/06/2016 13:03:00 01/06/2016 23:59:59 CLS Outpatient ISI MAHMOOD MD [facility] PREOP MULTIPLE LESIONS [id number] 10/18/2015 13:08:00 10/18/2015 23:59:59 CLS Outpatient ANAIS MESSER FACC, MARGRET CORREIA CCDS [facility] ICD ARTERI ISCHMIC [id number] 10/18/2015 13:02:00 10/18/2015 22:00:00 DIS Outpatient ANAIS MESSER FACC, MARGRET CORREIA CCDS [facility] CATH ICD AT ESTEPHANIE ISCHEMIC CM [id number] 05/12/2015 08:00:00 05/12/2015 23:59:59 CLS Outpatient JUN DON [facility] CARD CAD,HTN,HLP [id number] 12/23/2014 10:00:00 12/23/2014 16:40:00 DIS Outpatient ISI MAHMOOD MD [facility] SKIN LESION [id number] 12/21/2014 13:08:00 12/21/2014 23:59:59 CLS Outpatient ISI MAHMOOD MD [facility] PREOP SKIN LESION [id number] 07/23/2013 09:22:00 07/23/2013 14:37:00 DIS Outpatient ISI MAHMOOD MD [facility] SKIN LESION [id number] 06/25/2013 08:07:00 06/25/2013 23:59:59 CLS Outpatient ISI MAHMOOD MD [facility] PREOP SKIN LESION [id number] 02/18/2019 06:06:00 ACT Outpatient ISI MAHMOOD MD [facility] SKIN LESION [id number] 01/08/2013 18:14:00 Document Registration [id number] 01/08/2013 08:26:00 Document Registration [id number] 01/06/2013 08:00:00 Document Registration [id number] 12/20/2011 07:13:00 Document Registration [id number] 06/05/2011 05:36:00 Document Registration [id number] 06/01/2011 08:16:00 Document Registration [id number] 11/23/2010 13:01:00 Document Registration [id number] 10/05/2010 12:54:00 Document Registration [id number] 09/22/2010 08:57:00 Document Registration [id number] 07/06/2010 13:30:00 Document Registration [id number] 04/06/2010 13:02:00 Document Registration [id number] 01/11/2010 09:19:00 Document Registration [id number] 01/05/2010 12:55:00 Document Registration [id number] 10/06/2009 13:01:00 Document Registration [id number] 07/07/2009 12:50:00 Document Registration [id number] 05/24/2008 09:36:00 Document Registration
[2019-02-18] MEDS ORDERED: LACTATED RINGERS 1,000 ML IV PRN (06:14)
[2019-02-18] MEDS ORDERED: ceFAZolin 2 GM IV Premixed 50 ML IV ONE (06:15)
[2019-02-18 06:38] VITALS: BP 130/76
[2019-02-18] MEDS ORDERED: CATHETER FLUSH 10 ML SYR IV PRN (06:45)
[2019-02-18] MEDS ORDERED: proPOfol 200 MG/20 ML (DIPRIVAN) VIAL IV ONE (07:00)
[2019-02-18] MEDS ORDERED: ONDANSETRON 4 MG/2 ML (SDV) Z0FRAN ONE (07:00)
[2019-02-18] MEDS ORDERED: LIDOCAINE PF 2% 5 ML (XYLOCAINE) VIAL ONE (07:00)
[2019-02-18] MEDS ORDERED: DEXAMETHASONE 10 MG/ML (DECADRON) 1 ML VIAL ONE (07:00)
[2019-02-18] MEDS ORDERED: fentaNYL INJECTION 100 MCG/2 ML AMP ONE (07:01)
[2019-02-18] MEDS ORDERED: plavix (07:03)
[2019-02-18] MEDS ORDERED: BUP/EPI 0.5% 1:200,000 (SENSORCAINE) 30 ML VIAL ONE (07:05)
--- NOTE | 2019-02-18 07:34 | Progress Note-Pre Operative ---
Pre-Operative Progress Note H&P Reviewed The H&P was reviewed, patient examined and no changes noted. Date Seen by Provider: Feb 12, 2019 Time Seen by Provider: 10:00 Date H&P Reviewed: Feb 18, 2019 Time H&P Reviewed: 07:33 Pre-Operative Diagnosis: Skin lesion-right cheek ISI MAHMOOD MD Feb 18, 2019 07:34
[2019-02-18] MEDS ORDERED: SEVOFLURANE (ULTANE) 15 ML INHAL SOLN ONE (08:16)
--- NOTE | 2019-02-18 08:21 | Discharge Inst-Simple/Standard ---
Discharge Inst-Standard Discharge Medications New, Converted or Re-Newed RX: Other Patient Instructions/Follow Up Plan of Care/Instructions/FU: F/u with my nurse next Saturday am for suture removal Activity as Tolerated: Yes Discharge Diet: No Restrictions ISI MAHMOOD MD Feb 18, 2019 08:21
[2019-02-18 09:35] VITALS: BP 120/75
--- NOTE | 2019-02-18 09:57 | Operative Report ---
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 He was offered excision with frozen section to confirm the diagnosis and ensure negative margins. Informed consent was obtained after reviewing the procedures in detail. Description of procedure: He was placed supine on the operating table and general anesthesia induced. Ancef was administered intravenously as prophylaxis against wound infection. The right side of this face was prepared and draped in the usual sterile manner. Preemptive analgesia was established using 0.5 percent Marcaine with epinephrine. An elliptical incision about 3 cm in length by 2 cm in width was made and the lesion excised down to the subcutaneous tissue. It was oriented with silk sutures and sent for histological examination. The pathologist confirmed a squamous cell carcinoma with negative margins. Hemostasis was achieved using cautery and the incision closed using 4-0 Vicryl for the subcutaneous tissue and 6-0 nylon for skin, in a continuous fashion. Steri-Strips and a nonadherent dressing were applied. He tolerated the procedure well, was extubated in the operating room and taken to the recovery room in a stable condition. Findings of the Procedure See op report Allergies and Home Medications Allergies Coded Allergies: No Known Drug Allergies (Unverified , 02/13/19) Home Medications Aspirin 81 Mg Tablet.dr, 81 MG PO DAILY, (Reported) Carvedilol 6.25 Mg Tablet, 6.25 MG PO BID, (Reported) Divalproex Sodium 250 Mg Tablet.dr, 500 MG PO 0800, (Reported) TAKES 2 (250MG) TABLETS Divalproex Sodium 250 Mg Tablet.dr, 250 MG PO 1200,1800,2100, (Reported) Donepezil HCl 10 Mg Tablet, 10 MG PO DAILY, (Reported) Ferrous Sulfate 325 Mg Tablet, 325 MG PO DAILY, (Reported) Hydralazine HCl 10 Mg Tablet, 10 MG PO DAILY, (Reported) Lisinopril 5 Mg Tablet, 5 MG PO DAILY, (Reported) Multivit-Min/FA/Lycopene/Lut 1 Each Tablet, 1 TAB PO DAILY, (Reported) [place] 3 Polyunsat Fatty Acids 1,000 Mg Cap, 2,000 MG PO DAILY, (Reported) Simvastatin 20 Mg Tablet, 20 MG PO DAILY, (Reported) Trazodone HCl 50 Mg Tablet, 50 MG PO HS, (Reported) Patient Home Medication List Home Medication List Reviewed: Yes ISI MAHMOOD MD Feb 18, 2019 09:57
[2019-02-18 10:05] VITALS: BP 111/65
[2019-02-18 10:35] VITALS: BP 126/75
--- NOTE | 2019-02-18 13:19 | Anesthesia-General Post-Op ---
MAC Patient Condition Mental Status/LOC: Same as Preop Cardiovascular: Satisfactory Nausea/Vomiting: Absent Respiratory: Satisfactory Pain: Controlled Complications: Absent Post Op Complications Complications None Follow Up Care/Instructions Patient Instructions None needed. Anesthesiology Discharge Order Discharge Order Patient is doing well, no complaints, stable vital signs, no apparent adverse anesthesia problems. No complications reported per nursing. ABHI STANTON CRNA Feb 18, 2019 13:19
== END 2019-02-18 10:50 | disposition home or self-care (01) ==
LOC: SDC 06:06
PROVIDERS: ATTEND Surgery
DX: C44.329 Squamous cell carcinoma of skin of other parts of face (principal); Z11.2 Encounter for screening for other bacterial diseases; I25.10 Atherosclerotic heart disease of native coronary artery without angina pectoris; I25.5 Ischemic cardiomyopathy; I77.9 Disorder of arteries and arterioles, unspecified; E78.5 Hyperlipidemia, unspecified; G40.909 Epilepsy, unspecified, not intractable, without status epilepticus; Z79.899 Other long term (current) drug therapy; Z79.82 Long term (current) use of aspirin; Z86.73 Personal history of transient ischemic attack (TIA), and cerebral infarction without residual deficits; Z95.810 Presence of automatic (implantable) cardiac defibrillator
CPT/HCPCS: 87081